=== PATIENT | male | born 1950 | race Caucasian/White ===

== ENCOUNTER 2016-04-15 10:33 | Inpatient (IN) | payer BC, MEDICARE, OTHER ==
[2016-04-15] MEDS ORDERED: HYDROcodone/APAP 7.5-325MG 1 EACH TAB PO STA (11:00)
--- NOTE | 2016-04-15 11:04 | ED ---
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 He did bump the right side of his head. No reported or known loss of consciousness. Mild headache. No nausea no vomiting no seizure activity. Patient also complains of pain to the right shoulder right clavicle region and right rib cage. No complaint of any neuro deficits - Related Data Home Medications Medication Instructions Recorded Confirmed Lisinopril 30 mg PO DAILY 04/15/16 04/15/16 Loratadine [Claritin] 10 mg PO DAILY 04/15/16 04/15/16 Allergies Allergy/AdvReac Type Severity Reaction Status Date / Time No Known Allergies Allergy Verified 04/15/16 11:13 Review of Systems ROS Statement: Those systems with pertinent positive or pertinent negative responses have been documented in the HPI. Review of systems, patient does complain of mild headache no visual acuity changes no TMJ jaw pain. Mild discomfort to the right side of his neck. Pain to the right shoulder right clavicle and right rib cage. No shortness of breath no palpitations. No abdominal pain. No hip knee or leg pain. Otherwise upper and lower extremities within normal limits except for right shoulder area. All systems reviewed. Past medical problems colon cancer 1997 and hypertension. 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 The patient's family history Brother had pancreatic cancer sister had vomiting rectal thousand disease. The patient denies any ALLERGIES he quit smoking in 1980. Drinks alcohol socially. ROS Other: All systems not noted in ROS Statement are negative. Past Medical History Past Medical History: Hypertension History of Any Multi-Drug Resistant Organisms: None Reported Past Surgical History: Appendectomy, Cholecystectomy Past Psychological History: No Psychological Hx Reported Smoking Status: Never smoker Past Alcohol Use History: Occasional Past Drug Use History: None Reported General Exam - General Exam Comments Initial Comments: General: The patient is awake and alert, complaining of pain to the right shoulder area right clavicular area. He did bump his head. No loss of consciousness. The patient's vital signs are temperature 98.0 pulse 68 respiratory rate 18 pulse ox 90% on room air blood pressure 141/71. Patient does have a history of hypertension his systolic is elevated 147. The patient is in pain. He'll be following up with his family physician and X1 to 2 weeks.. Eye: Pupils are equal, round and reactive to light, extra-ocular movements are intact ; there is normal conjunctiva bilaterally. No signs of icterus. Ears, nose, mouth and throat: There are moist mucous membranes and no oral lesions. Neck: The neck is supple, minimally tender without complaint of pain. No anterior cervical lymphadenopathy no palpable thyroid. Cardiovascular: There is a regular rate and rhythm. No murmur, rub or gallop is appreciated. Respiratory: Lungs are clear to auscultation, respirations are non-labored, breath sounds are equal. No wheezes, stridor, rales, or rhonchi. Gastrointestinal: Soft, non-distended, non-tender abdomen without masses or organomegaly noted. There is no rebound or guarding present. No CVA tenderness. Bowel sounds are unremarkable. Back: There is no tenderness to palpation in the midline. There is no obvious deformity. No rashes noted. Musculoskeletal: Complaining of pain to the right shoulder area obvious deformity to the right clavicle. Able to wiggle his fingers rotate at the elbow and wrist. Neurovascular status to hands intact. He also complains discomfort to the right rib cage. No pain with movement of the toes and ankles knees hips or back. Neurological: CN II-XII intact, There are no obvious motor or sensory deficits. Coordination appears grossly intact. Speech is normal. No focal or lateralizing findings well crown was examined within normal limits. Skin: Skin is warm and dry and no rashes or lesions are noted. Limitations: physical limitation Course Vital Signs 04/15/16 10:36 Temperature 98.0 F Pulse Rate 68 Respiratory 18 Rate Blood Pressure 147/71 O2 Sat by Pulse 98 Oximetry Medical Decision Making - Medical Decision Making X-rays were done including CAT scan of the brain and cervical spine. Radiologist reviewed all x-rays his report concerning the C-spine showed no acute fracture dislocation evident in the cervical spine. No acute intracranial hemorrhage, mass effect or midline shift seen. Appears to be a soft tissue edema along the lateral margin subcutaneous tissue of the right neck at the level of the thyroid gland. Correlate clinically for soft tissue hematoma. Large intrahemispheric fissure dural calcifications or calcified meningioma with no significant mass effect. As read by Dr. Griffin. Radiologist's review of x-ray shows a right clavicular fracture. As well as posterior lateral fractures to the right fourth fifth and sixth ribs. No evidence of pneumothorax. As read by Dr. Wiseman Patient still complains discomfort in the right clavicle and under the right arm pit area. No significant changes otherwise ,no shortness of breath. Minimal headache. Lungs clear to auscultation. Reexamination found normal neuro exam and no changes from first exam. Case discussed with trauma surgeon on-call Dr. Raymond. Patient be admitted to his service. He is requesting orthopedic consult for rib fractures also consult from pulmonary Dr. Riley . As well as anesthesia consult for pain management. Disposition Clinical Impression: Multiple fractures of ribs of right side, Right clavicle fracture Disposition: ADMITTED IP TO THIS HOSP Condition: Fair
--- NOTE | 2016-04-15 13:20 | XR ---
EXAMINATION TYPE: XR shoulder complete RT DATE OF EXAM: 04/15/2016 12:21 PM COMPARISON: NONE HISTORY: Pain TECHNIQUE: Shoulder examined in 3 FINDINGS: The humeral head articulates with the glenoid. The acromioclavicular junction has degenerative change. There is a fracture of the mid diaphyseal clavicle bayonet deformity IMPRESSION: 1. Mid diaphyseal clavicular fracture mildly comminuted with bayonet deformity. 2. Remainder of the right shoulder is normal
--- NOTE | 2016-04-15 13:24 | XR ---
EXAMINATION TYPE: XR ribs RT w pa chest xray DATE OF EXAM: 04/15/2016 12:20 PM COMPARISON: Right shoulder same date HISTORY: Fall, pain TECHNIQUE: 2 views right RIBS FINDINGS: There is a comminuted fracture of the mid diaphyseal right clavicle further discussed in th e right shoulder x-ray. Pain and deformity is present depression of the distal fracture fragment in r elation to the proximal fracture fragment. Multiple right-sided rib fractures are present including posterior lateral right rib 4, 5, and 6. Rig ht rib 5 fracture may have some overlap and displacement of the fracture fragments. Additional fractu res are not identified. No pneumothorax is evident. IMPRESSION: 1. Posterior lateral right rib fractures of the fourth fifth and sixth ribs. 2. No pneumothorax.
--- NOTE | 2016-04-15 13:42 | CT ---
EXAMINATION TYPE: CT brain dylan flynn con DATE OF EXAM: 04/15/2016 1:23 PM COMPARISON: NONE HISTORY: Fall, Hit right side of head CT DLP: 1567.90 mGycm Automated exposure control for dose reduction was used. TECHNIQUE: CT scan of the head and cervical spine are performed without contrast. FINDINGS: There is no acute intracranial hemorrhage, mass effect, or midline shift identified. The ventricles and sulci are within normal limits in size. Extensive changes of chronic sinusitis noted. Calcified mass along the anterior hemispheric fissure paramedian to the left likely related to calcif ied meningioma measuring 2.1 cm. Additional calcified lesion measuring 1.2 cm also suspicious for eit her dural large calcification or calcified meningioma. There is [id number] degenerative change and periventricular low attenuation compatible with remote microvascular ischemia. Cervical spine is visualized in its entirety from C1 through upper thoracic levels and demonstrates s atisfactory alignment without evidence of acute fracture or dislocation. Prevertebral soft tissue ap pears within normal limits. The C1-C2 articulation is unremarkable. Severe degenerative disc disease C5-C6 and C6-C7 posterior spondylosis, facet arthropathy and uncover tebral joint hypertrophy. Severe left-sided foraminal encroachment C5-C6 and moderate bilateral ling inal encroachment C6-C7. Marked facet arthropathy at C2-3 and C3-4 particularly on the left with uncovertebral joint hypertrop hy result in foraminal encroachment. Assessment for disc herniation limited by noncontrast technique and artifact. Left thyroid gland calcification noted. There appears to be soft tissue edema along the lateral mar gin subcutaneous tissues of the right neck at the level of the thyroid gland. Correlate clinically Fo r soft tissue hematoma. IMPRESSION: 1. There is no acute fracture or dislocation evident in the cervical spine. 2. No acute intracranial hemorrhage, mass effect, or midline shift is seen. 3. appears to be soft tissue edema along the lateral margin subcutaneous tissues of the right neck a t the level of the thyroid gland. Correlate clinically For soft tissue hematoma. 4. Large interhemispheric fissure dural calcifications or calcified meningioma with no significant ma ss effect.
[2016-04-15] MEDS ORDERED: ONDANSETRON 4 MG/2 ML VIAL IVP PRN (14:32)
[2016-04-15] MEDS ORDERED: NALOXONE 0.4 MG/ML 1 ML VIAL IV PRN (14:32)
[2016-04-15] MEDS: SODIUM CHLORIDE 0.9% 1,000 ML IV SCH (14:41)
[2016-04-15] MEDS: HYDROmorphone 1 MG/ML 1 ML SYRINGE IV PRN ×4 (14:42→22:43)
[2016-04-15 15:06] LABS: Basophils % (A) 0 %; CH 32.4; CHCM 33.8; Eosinophils % (A) 0 %; HCT 45.2 % (39.0-53.0); HDW 2.39; HGB 15.1 gm/dL (13.0-17.5); Luc # (Auto) 0.09; Luc % (Auto) 1; Lymphocytes # (A) 0.7 k/uL (1.0-4.8); Lymphocytes % (A) 5 %; MCH 32.3 pg (25.0-35.0); MCHC 33.5 g/dL (31.0-37.0); MCV 96.3 fL (80.0-100.0); Mean Platelet Volume 7.2; Monocytes # (A) 0.5 k/uL (0-1.0); Monocytes % (A) 4 %; Neutrophils # (A) 12.1 k/uL (1.3-7.7); Neutrophils % (A) 90 %; RBC 4.69 m/uL (4.30-5.90); WBC 13.4 k/uL (3.8-10.6); WBC (Perox) 13.15
[2016-04-15 15:13] LABS: ALT 36 U/L (21-72); AST 27 U/L (17-59); Alkaline Phosphatase 70 U/L (38-126); Anion Gap 12 mmol/L; Blood Urea Nitrogen 17 mg/dL (9-20); Calcium 9.2 mg/dL (8.4-10.2); Carbon Dioxide 26 mmol/L (22-30); Chloride 102 mmol/L (98-107); Glucose 106 mg/dL (74-99); Non-African American GFR(MDRD) >60 (>60 ml/min/1.73 sqM); Potassium 4.4 mmol/L (3.5-5.1); Sodium 140 mmol/L (137-145); Total Bilirubin 0.8 mg/dL (0.2-1.3); Total Protein 7.4 g/dL (6.3-8.2)
[2016-04-15 15:50] VITALS: BMI 27.8
--- NOTE | 2016-04-15 17:40 | P.CNPUL ---
History of Present Illness Consult date: 04/15/16 Requesting physician: Elder Raymond Reason for consult: abnormal CXR/CT, other (Right clavicle and multiple right- sided rib fractures) Chief complaint: Pain/trauma secondary to fall History of present illness: This is a very pleasant 65-year-old gentleman follows with Dr. Martell as his primary care physician. He has a history of hypertension, colon cancer with resection, osteoarthritis and occasional ALLERGIES. He is a lifelong nonsmoker. He is a quite an active man and exercises on the elliptical each morning. 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 He presented here for pain secondary to the trauma. A CT can of the head and neck revealed no acute fracture or dislocation of the cervical spine. There is no acute intracranial hemorrhage mass effect or midline shift. There was some soft tissue edema along the lateral margin subcutaneous tissues of the right neck at the level of the thyroid gland. There is a large inter-hemispheric fissure dural calcification or calcified meningioma with no significant mass effect. Chest x- ray and rib x-rays revealed posterior lateral rib fractures to the fourth fifth and sixth ribs. No evidence of a pneumothorax. Right shoulder x-ray revealed the mid diaphyseal clavicular fracture mildly comminuted with bayonet deformity. He is seen today in consultation. He is awake and alert in no acute distress. He does have significant clavicular and right sided chest wall pain. He is in no acute pulmonary distress. He is maintaining good O2 saturations in the mid 90s on room air. Pain is fairly well controlled. He denies any shortness of breath, cough or congestion. No hemoptysis. He is remained hemodynamically stable. No fever chills or night sweats. Review of Systems 14 point review of system was conducted. All negative other than as mentioned in HPI. Past Medical History Past Medical History: Cancer, Hearing Disorder / Deafness, Hypertension, Osteoarthritis (OA) Additional Past Medical History / Comment(s): colon ca 1998 removed, allergies History of Any Multi-Drug Resistant Organisms: None Reported Past Surgical History: Appendectomy Additional Past Surgical History / Comment(s): colon removed secondary to ca, only has semicolon Past Anesthesia/Blood Transfusion Reactions: No Reported Reaction Past Psychological History: No Psychological Hx Reported Smoking Status: Never smoker Past Alcohol Use History: Occasional Past Drug Use History: None Reported Medications and Allergies Home Medications Medication Instructions Recorded Confirmed Type Lisinopril 30 mg PO DAILY 04/15/16 04/15/16 History Loratadine [Claritin] 10 mg PO DAILY 04/15/16 04/15/16 History Allergies Allergy/AdvReac Type Severity Reaction Status Date / Time No Known Allergies Allergy Verified 04/15/16 11:13 Physical Exam Vitals: Vital Signs Temp Pulse Pulse Resp BP BP Pulse Ox 04/15/16 15:40 98.4 F 79 16 148/83 97 04/15/16 15:15 97.9 F 82 168/81 95 Intake and Output 04/15/16 04/15/16 04/15/16 06:59 14:59 22:59 Other: Weight 90.718 kg Patient Weight 04/16/16 06:59 Weight 90.718 kg GENERAL EXAM: Alert, fairly comfortable in no apparent distress. HEAD: Normocephalic. EYES: Normal reaction of pupils, equal size. NOSE: Clear with pink turbinates. THROAT: No erythema or exudates. NECK: No masses, no JVD. CHEST: There is ecchymosis over the right clavicle with some swelling LUNGS: Equal air entry with no crackles, wheeze, rhonchi or dullness. CVS: S1 and S2 normal with no audible murmurs, regular rhythm. ABDOMEN: No hepatosplenomegaly, normal bowel sounds, no guarding or rigidity. SPINE: No scoliosis or deformity SKIN: No rashes CENTRAL NERVOUS SYSTEM: No focal deficits, tone is normal in all 4 extremities. Extremities: There is no significant peripheral edema. No clubbing, no cyanosis. Peripheral pulses are intact. Results - Laboratory Findings CBC and BMP: 04/15/16 14:48 04/15/16 14:48 Abnormal lab findings: Abnormal Labs 04/15/16 04/15/16 14:48 14:48 WBC 13.4 H Neutrophils # 12.1 H Lymphocytes # 0.7 L Glucose 106 H - Diagnostic Findings Chest x-ray: image reviewed Assessment and Plan Plan: Impression: #1 Trauma including right clavicular fracture and multiple right-sided rib fractures secondary to slip and fall well out shoveling. #2 Right mid diaphyseal clavicular fracture mildly comminuted with bayonet deformity secondary to fall. #3 Posterior lateral right rib fractures of the fourth fifth and sixth ribs. No evidence of pneumothorax. #4 Hypertension. #5 History of colon cancer status post hemicolectomy. #6 Osteoarthritis. Plan: The patient was seen and evaluated by Dr. Pedroza. His chest x-ray was reviewed. There is no clear evidence of pneumothorax at this point. We'll provide adequate pain medication. He'll be given an incentive spirometer and is encouraged regarding the importance of cough and deep breathing exercises. We will increase his activity as tolerated. We'll utilize bronchodilators as needed. We'll repeat his chest x-ray in the a.m. We'll continue to follow make further recommendations based on his clinical status.
[2016-04-15] MEDS ORDERED: ALBUTEROL NEB (CONC) 2.5 MG/0.5 ML INHALATION PRN (17:41)
[2016-04-16] MEDS: HYDROmorphone 1 MG/ML 1 ML SYRINGE IV PRN ×8 (02:00→22:39)
[2016-04-16] MEDS: SODIUM CHLORIDE 0.9% 1,000 ML IV SCH (02:02)
--- NOTE | 2016-04-16 08:15 | P.CNOR ---
History of Present Illness - HPI Consult date: 04/16/16 Consult reason: fracture (Right clavicle fracture) History of present illness: This is a pleasant 65-year-old gentleman who was out shoveling sidewalk when he sustained a fall onto the right side. He sustained a clavicle fracture and rib fractures subsequently we are consulted. The patient was seen and evaluated at bedside this morning with Dr. Juan Francisco Steele. He complains of pain at the right shoulder over his clavicle. He also complains of right chest pain secondary to his rib fractures. This morning his pain is better controlled. He denies shortness of breath or cough. No fevers, chills, nausea, vomiting. Review of Systems See HPI Past Medical History Past Medical History: Cancer, Hearing Disorder / Deafness, Hypertension, Osteoarthritis (OA) Additional Past Medical History / Comment(s): colon ca 1998 removed, allergies History of Any Multi-Drug Resistant Organisms: None Reported Past Surgical History: Appendectomy Additional Past Surgical History / Comment(s): colon removed secondary to ca, only has semicolon Past Anesthesia/Blood Transfusion Reactions: No Reported Reaction Past Psychological History: No Psychological Hx Reported Smoking Status: Never smoker Past Alcohol Use History: Occasional Past Drug Use History: None Reported Medications and Allergies Home Medications Medication Instructions Recorded Confirmed Type Lisinopril 30 mg PO DAILY 04/15/16 04/15/16 History Loratadine [Claritin] 10 mg PO DAILY 04/15/16 04/15/16 History Allergies Allergy/AdvReac Type Severity Reaction Status Date / Time No Known Allergies Allergy Verified 04/15/16 11:13 Physical Examination The patient does not appear in acute distress. He is alert and orientated 3. Head normocephalic atraumatic. Neck is supple. In is intact over the right clavicle and shoulder. There is swelling and ecchymosis present. There is tenderness palpation over the fracture site. Range of motion of the shoulders untested secondary to his injury. He has good motion at the elbow wrist and fingers without difficulty or pain. Sensation circulatory status is intact. Secondary exam is performed as well. Patient denies any hip irritability with internal/external rotation. He denies any other areas of pain of his long bones and joints today. Patient has sustained dorsiflexion, plantar flexion extensor hallux longus of his lower extremities. Results X-rays of the patient's right ribs show posterior lateral right rib fractures the fourth fifth and sixth ribs. No pneumothorax. X-rays of the right shoulder show fracture of the mid-diaphyseal clavicle with pain and deformity. No additional fractures or dislocation are noted - Labs Labs: Abnormal Lab Results - Last 24 Hours (Table) 04/15/16 04/15/16 Range/Units 14:48 14:48 WBC 13.4 H (3.8-10.6) k/uL Neutrophils # 12.1 H (1.3-7.7) k/uL Lymphocytes # 0.7 L (1.0-4.8) k/uL Glucose 106 H (74-99) mg/dL H & H 04/15/16 Range/Units 14:48 Hgb 15.1 (13.0-17.5) gm/dL Hct 45.2 (39.0-53.0) % Result Diagrams: 04/15/16 14:48 04/15/16 14:48 Assessment and Plan (1) Multiple fractures of ribs of right side Status: Acute (2) Right clavicle fracture Status: Acute Plan: Patient was seen and evaluated at bedside with Dr. Juan Francisco Steele. The clinical and x-ray findings were discussed. The natural history of this type of injury was discussed as well. Treatment options were discussed including nonoperative versus operative treatment. Nonoperative treatment is recommended at this time. Closed treatment in a sling for immobilization is anticipated for 3-4 weeks. The patient currently has a sling in place. Regards to his rib fractures recommend incentive spirometer. The patient is orthopedically stable for discharge. He may follow-up with Dr. Steele in 10-14 days. Patient agrees with the plan of care and I'll discuss questions are answered to best my ability today.
[2016-04-16] MEDS: LISINOPRIL 10 MG TAB PO SCH (08:41)
[2016-04-16] MEDS: LORATADINE 10 MG TAB PO SCH (08:41)
--- NOTE | 2016-04-16 15:01 | P.GSHP ---
History of Present Illness H&P Date: 04/16/16 Chief Complaint: Right-sided chest and shoulder pain This is a 65-year-old male who fell while shoveling snow. The patient was worked up emergency room found have evidence of a right clavicle fracture as well as right fourth, fifth and sixth rib fractures. Past Medical History Past Medical History: Cancer, Hearing Disorder / Deafness, Hypertension, Osteoarthritis (OA) Additional Past Medical History / Comment(s): colon ca 1998 removed, allergies History of Any Multi-Drug Resistant Organisms: None Reported Past Surgical History: Appendectomy Additional Past Surgical History / Comment(s): colon removed secondary to ca, only has semicolon Past Anesthesia/Blood Transfusion Reactions: No Reported Reaction Past Psychological History: No Psychological Hx Reported Smoking Status: Never smoker Past Alcohol Use History: Occasional Past Drug Use History: None Reported Medications and Allergies Home Medications Medication Instructions Recorded Confirmed Type Lisinopril 30 mg PO DAILY 04/15/16 04/15/16 History Loratadine [Claritin] 10 mg PO DAILY 04/15/16 04/15/16 History Allergies Allergy/AdvReac Type Severity Reaction Status Date / Time No Known Allergies Allergy Verified 04/15/16 11:13 Surgical - Exam Vital Signs Temp Pulse Resp BP Pulse Ox 98.0 F 68 18 147/71 98 04/15/16 10:36 04/15/16 10:36 04/15/16 10:36 04/15/16 10:36 04/15/16 10:36 - General well developed, no distress - Eyes PERRL - ENT normal pinna - Neck no masses - Respiratory Pain right chest wall with deep inspiration normal expansion - Cardiovascular Rhythm: regular - Abdomen Abdomen: soft, non tender - Musculoskeletal Right shoulder pain with obvious ecchymosis near clavicle Results - Labs 04/15/16 14:48 04/15/16 14:48 Abnormal Lab Results - Last 24 Hours (Table) 04/15/16 04/15/16 Range/Units 14:48 14:48 WBC 13.4 H (3.8-10.6) k/uL Neutrophils # 12.1 H (1.3-7.7) k/uL Lymphocytes # 0.7 L (1.0-4.8) k/uL Glucose 106 H (74-99) mg/dL Diabetes panel 04/15/16 Range/Units 14:48 Sodium 140 (137-145) mmol/L Potassium 4.4 (3.5-5.1) mmol/L Chloride 102 (98-107) mmol/L Carbon Dioxide 26 (22-30) mmol/L BUN 17 (9-20) mg/dL Creatinine 0.80 (0.66-1.25) mg/dL Glucose 106 H (74-99) mg/dL Calcium 9.2 (8.4-10.2) mg/dL AST 27 (17-59) U/L ALT 36 (21-72) U/L Alkaline Phosphatase 70 (38-126) U/L Total Protein 7.4 (6.3-8.2) g/dL Albumin 4.3 (3.5-5.0) g/dL Calcium panel 04/15/16 Range/Units 14:48 Calcium 9.2 (8.4-10.2) mg/dL Albumin 4.3 (3.5-5.0) g/dL Pituitary panel 04/15/16 Range/Units 14:48 Sodium 140 (137-145) mmol/L Potassium 4.4 (3.5-5.1) mmol/L Chloride 102 (98-107) mmol/L Carbon Dioxide 26 (22-30) mmol/L BUN 17 (9-20) mg/dL Creatinine 0.80 (0.66-1.25) mg/dL Glucose 106 H (74-99) mg/dL Calcium 9.2 (8.4-10.2) mg/dL Adrenal panel 04/15/16 Range/Units 14:48 Sodium 140 (137-145) mmol/L Potassium 4.4 (3.5-5.1) mmol/L Chloride 102 (98-107) mmol/L Carbon Dioxide 26 (22-30) mmol/L BUN 17 (9-20) mg/dL Creatinine 0.80 (0.66-1.25) mg/dL Glucose 106 H (74-99) mg/dL Calcium 9.2 (8.4-10.2) mg/dL Total Bilirubin 0.8 (0.2-1.3) mg/dL AST 27 (17-59) U/L ALT 36 (21-72) U/L Alkaline Phosphatase 70 (38-126) U/L Total Protein 7.4 (6.3-8.2) g/dL Albumin 4.3 (3.5-5.0) g/dL Assessment and Plan Plan: Right clavicle fracture Right fourth fifth and sixth rib fracture Patient will be admitted he'll undergo restaging evaluation. And repeat chest x -ray in a.m. Patient was seen 30 this a.m.
[2016-04-16] MEDS: HYDROcodone/APAP 7.5-325MG 1 EACH TAB PO PRN ×2 (17:17→22:38)
--- NOTE | 2016-04-16 17:30 | P.PN ---
Subjective This is a very pleasant 65-year-old gentleman follows with Dr. Martell as his primary care physician. He has a history of hypertension, colon cancer with resection, osteoarthritis and occasional ALLERGIES. He is a lifelong nonsmoker. He is a quite an active man and exercises on the elliptical each morning. 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 He presented here for pain secondary to the trauma. A CT can of the head and neck revealed no acute fracture or dislocation of the cervical spine. There is no acute intracranial hemorrhage mass effect or midline shift. There was some soft tissue edema along the lateral margin subcutaneous tissues of the right neck at the level of the thyroid gland. There is a large inter-hemispheric fissure dural calcification or calcified meningioma with no significant mass effect. Chest x- ray and rib x-rays revealed posterior lateral rib fractures to the fourth fifth and sixth ribs. No evidence of a pneumothorax. Right shoulder x-ray revealed the mid diaphyseal clavicular fracture mildly comminuted with bayonet deformity. He is seen today in consultation. He is awake and alert in no acute distress. He does have significant clavicular and right sided chest wall pain. He is in no acute pulmonary distress. He is maintaining good O2 saturations in the mid 90s on room air. Pain is fairly well controlled. He denies any shortness of breath, cough or congestion. No hemoptysis. He is remained hemodynamically stable. No fever chills or night sweats. On 04/16/2016 the patient is being seen in follow-up in the patient is doing well. No specific complaints. His pain is under good control. His underlying control milligram every 4-6 hours on a when necessary basis. As mentioned earlier, the patient has a fractured clavicle and the patient has 3 rib fractures involving the sixth, fourth and fifth rib on the right side. No evidence of any pneumothorax. No this any pleural effusions. No other new complaints otherwise for now. The patient is using incentive spirometer. The patient is ambulating. Objective - Vital Signs Vital signs: Vital Signs Temp 98 F 04/16/16 15:00 Pulse 82 04/16/16 15:00 Resp 16 04/16/16 15:00 BP 135/77 04/16/16 15:00 Pulse Ox 93 L 04/16/16 15:00 Intake & Output 04/15/16 04/16/16 04/16/16 18:59 06:59 18:59 Intake Total 240 480 Balance 240 480 Weight 90.718 kg Intake: Intake, IV Titration 480 Amount Sodium Chloride 0.9% 1, 480 000 ml @ 60 mls/hr IV . [id number] [facility] Rx#:[id number] Oral 240 - Exam Head exam was generally normal. There was no scleral icterus or corneal arcus. Mucous membranes were moist.Neck was supple and without jugular venous distension, thyromegaly, or carotid bruits. Carotids were easily palpable bilaterally. There was no adenopathy. Lung sounds are diminished and this is essentially due to poor respiratory efforts as the patient is breathing is limited because of skeletal pain.Cardiac exam revealed the PMI to be normally situated and sized. The rhythm was regular and no extrasystoles were noted during several minutes of auscultation. The first and second heart sounds were normal and physiologic splitting of the second heart sound was noted. There were no murmurs, rubs, clicks, or gallops.Abdominal exam revealed normal bowel sounds. The abdomen was soft, non-tender, and without masses, organomegaly, or appreciable enlargement of the abdominal aorta.Examination of the extremities revealed easily palpable radial, femoral and pedal pulses. There was no cyanosis , clubbing or edema. - Labs CBC & Chem 7: 04/15/16 14:48 04/15/16 14:48 Assessment and Plan Plan: Impression: #1 Trauma including right clavicular fracture and multiple right-sided rib fractures secondary to slip and fall well out shoveling. #2 Right mid diaphyseal clavicular fracture mildly comminuted with bayonet deformity secondary to fall. #3 Posterior lateral right rib fractures of the fourth fifth and sixth ribs. No evidence of pneumothorax. #4 Hypertension. #5 History of colon cancer status post hemicolectomy. #6 Osteoarthritis. Plan Condition is stable. Pain is under better control. We'll stop the IV Dilaudid and switch this patient oral [place]. Continue using incentive spirometer. Obtain one final chest x-ray tomorrow. We'll likely discharge in the morning if his condition remains stable.
--- NOTE | 2016-04-16 18:44 | XR ---
EXAMINATION TYPE: XR chest 2V DATE OF EXAM: 04/16/2016 6:39 PM COMPARISON: 04/15/2016 HISTORY: Rib pain TECHNIQUE: Frontal and lateral views of the chest are obtained. FINDINGS: There is no heart failure. There is linear density in the left lower lobe consistent with atelectasis. There are no hilar masses. Thoracic aorta is atheromatous. There is no pleural effusion or pneumothorax. There are fractures of the posterior right upper fifth and sixth ribs. IMPRESSION: Right upper rib fractures without significant change in position compared to last exam. There is new and increasing atelectasis in the left lower lobe compared to last exam.
--- NOTE | 2016-04-16 19:37 | P.CONS ---
History of Present Illness - Reason for Consult Consult date: 04/16/16 Medical management. Requesting physician: Elder Raymond - Chief Complaint Right clavicular fracture/posterior fourth, fifth, sixth rib fractures - History of Present Illness This is a 65-year-old male one of Dr. Martell with a previous medical history significant for hypertension and hypertensive cardio vascular disease with left ventricular hypertrophy, Boo arthritis, history of colon cancer that was diagnosed back in 1997 post hemicolectomy, history of ALLERGIC rhinitis , hearing disorder, patient is quite active and run at least 9 miles a daily basis on his elliptical machine at home, he was working outside yesterday morning shoveling snow and suddenly he slipped on ice and he landed on his back first hit his head that he hit his right shoulder and back patient developed to have a significant pain in the right side of his chest as well as right shoulder he was brought into the emergency department at [facility] when he had numerous x-rays and his computed tomography scan of the brain did show some calcified meningiomas without any mass effect, and no intracranial bleed, his cervical spine did not show any evidence of acute fracture, he was found to have a posterior right fourth, fifth, sixth rib fractures, as well as mildly comminuted fracture of the right clavicle, he was admitted under trauma surgery and we were asked to see the patient from medicine for medical management today. Patient is sitting up in bed in no apparent distress he denies any chest pain at this time except for the side of the rib fracture he denies any shortness breath, he has no pleurisy, he is coughing a bit, no hemoptysis, he denies any bowel pain, nausea, vomiting, he has no headache, he does Have some arthritis in both feet. Review of Systems Constitutional: Denies anorexia, Denies chronic headaches, Denies lethargy, Denies malaise, Denies weakness, Denies weight gain, Denies weight loss Eyes: denies blurred vision, denies bulging eye, denies decreased vision Ears: bilateral: decreased hearing Ears, nose, mouth and throat: Denies dysphagia, Denies epistaxis, Denies neck lump, Denies sore throat, Denies vertigo Cardiovascular: Reports chest pain, Denies dyspnea on exertion, Denies edema, Denies high blood pressure, Denies paroxysmal nocturnal dyspnea, Denies phlebitis, Denies rapid heart beat, Denies shortness of breath, Denies syncope Respiratory: Denies congestion, Denies cough, Denies cough with sputum, Denies home oxygen, Denies sleep apnea, Denies snoring, Denies wheezing Gastrointestinal: Denies abdominal pain, Denies bloating, Denies BRBPR, Denies change in bowel habits, Denies heartburn, Denies hematemesis, Denies hematochezia, Denies melena, Denies nausea, Denies vomiting Genitourinary: Denies dysuria, Denies nocturia, Denies polyuria Musculoskeletal: Reports limitation of motion Musculoskeletal: right: shoulder pain, shoulder stiffness, shoulder swelling, bilateral: foot pain, absent: ankle pain, ankle stiffness, ankle swelling, as per HPI, elbow pain, elbow stiffness, elbow swelling, foot stiffness, foot swelling, hand pain, hand stiffness, hand swelling, hip pain, hip stiffness, hip swelling, knee pain, knee stiffness, knee swelling, wrist pain, wrist stiffness, wrist swelling Integumentary: Denies pruritus, Denies rash Neurological: Denies numbness, Denies weakness Psychiatric: Denies anxiety, Denies depression Endocrine: Denies fatigue, Denies weight change Past Medical History Past Medical History: Cancer, Hearing Disorder / Deafness, Hypertension, Osteoarthritis (OA) Additional Past Medical History / Comment(s): colon ca 1998 removed, allergies History of Any Multi-Drug Resistant Organisms: None Reported Past Surgical History: Appendectomy Additional Past Surgical History / Comment(s): colon removed secondary to ca, only has semicolon, right cataract surgery, Past Anesthesia/Blood Transfusion Reactions: No Reported Reaction Past Psychological History: No Psychological Hx Reported Smoking Status: Former smoker (Patient used to smoke half to a pack a day on and off.) Past Alcohol Use History: Occasional Past Drug Use History: None Reported - Past Family History Mother Family Medical History: Cancer (Mother at age of 90 from breast cancer, congestive heart failure, and renal cancer.) Father Family Medical History: CVA/TIA (Father at age of 81 from stroke.) Brother(s) Family Medical History: Cancer (Patient had 4 brothers 3 are alive and okay and one from pancreatic cancer per) Sister(s) Family Medical History: No Reported History (Patient had 2 sisters one is alive and okay the other one from neurofibroma and she ended up with MRSA through a pressure ulcer.) Son(s) Family Medical History: No Reported History (Patient has one son no major medical problems for) Medications and Allergies Home Medications Medication Instructions Recorded Confirmed Type Lisinopril 30 mg PO DAILY 04/15/16 04/15/16 History Loratadine [Claritin] 10 mg PO DAILY 04/15/16 04/15/16 History Allergies Allergy/AdvReac Type Severity Reaction Status Date / Time No Known Allergies Allergy Verified 04/15/16 11:13 Physical Exam Vitals: Vital Signs Temp Pulse Resp BP Pulse Ox 04/16/16 15:00 98 F 82 16 135/77 93 L 04/16/16 07:00 98.8 F 77 16 138/71 93 L 04/16/16 02:00 97.9 F 72 20 126/69 94 L 04/15/16 22:12 97.8 F 88 16 138/77 04/15/16 19:55 97.3 F L 81 18 138/73 92 L Intake and Output 04/16/16 04/16/16 04/16/16 06:59 14:59 22:59 Intake Total 480 720 Balance 480 720 Intake: IV 480 Sodium Chloride 0.9% 1, 480 000 ml @ 60 mls/hr IV . [id number] [facility] Rx#:[id number] Intake, IV Titration 480 Amount Sodium Chloride 0.9% 1, 480 000 ml @ 60 mls/hr IV . [id number] [facility] Rx#:[id number] Oral 240 - Constitutional General appearance: average body habitus, mild distress - EENT Eyes: disc margins sharp, PERRLA, no ptosis, no scleral icterus, normal appearance ENT: hard of hearing, normal oropharynx, no thrush Ears: bilateral: normal - Neck Neck: no lymphadenopathy, no normal ROM, no rigidity, no stridor, no thyromegaly Carotids: bilateral: upstroke normal Thyroid: bilateral: normal size - Respiratory Respiratory: bilateral: diminished, negative: dullness, rales, rhonchi, wheezing , prolonged expiration, prolonged inspiration - Cardiovascular Rhythm: regular Heart sounds: normal: S1, S2 Abnormal Heart Sounds: no systolic murmur, no diastolic murmur, no rub, no S3 Gallop, no S4 Gallop, no click - Gastrointestinal General gastrointestinal: normal bowel sounds, soft, no splenomegaly, no tenderness, no umbilical hernia, no ventral hernia - Integumentary Integumentary: normal, normal turgor - Neurologic Neurologic: CNII-XII intact - Musculoskeletal Musculoskeletal: strength equal bilaterally - Psychiatric Psychiatric: A&O x's 3, appropriate affect, intact judgment & insight Results CBC & Chem 7: 04/15/16 14:48 04/15/16 14:48 Assessment and Plan Plan: Assessment and plan: 1. Status post a fall with multiple rib fractures and clavicular fracture. Continue incentive spirometer to reduce the incidence of atelectasis and hospital-acquired pneumonia, continue nebulized treatment, continue oxygen support as needed. Continue current pain management as well. 2. Hypertension and hypertensive cardiovascular disease. Continue lisinopril 30 mg orally once every day. 3. ALLERGIC rhinitis. Continue Claritin 10 mg orally once every day. 4. Osteoarthritis. Continue patient on current pain management. 5. DVT prophylaxis. Early ambulation. 6. GI prophylaxis. Continue current PPI. 7. Thank you Dr. Raymond for allowing me to participate in the care of your patient we will follow the patient along with you.
[2016-04-17] MEDS: HYDROmorphone 1 MG/ML 1 ML SYRINGE IV PRN (03:27)
[2016-04-17] MEDS: SODIUM CHLORIDE 0.9% 1,000 ML IV SCH (03:28)
[2016-04-17] MEDS: HYDROcodone/APAP 7.5-325MG 1 EACH TAB PO PRN ×3 (05:45→14:05)
[2016-04-17 08:16] VITALS: BP 142/79; PULSE 78; RESP 17; TEMP 98
--- NOTE | 2016-04-17 08:17 | P.PN ---
Subjective Principal diagnosis: Right clavicle and rib fractures This is a 65-year-old male who we're following regarding his right clavicle and rib fractures. He is doing well from an orthopedic standpoint. He has no new complaints or concerns today. Objective - Vital Signs Vital signs: Vital Signs Temp 98.0 F 04/17/16 04:53 Pulse 92 04/17/16 04:53 Resp 16 04/17/16 04:53 BP 132/82 04/17/16 04:53 Pulse Ox 92 L 04/17/16 04:53 Intake & Output 04/16/16 04/17/16 04/17/16 18:59 06:59 18:59 Intake Total 720 720 Balance 720 720 Weight 90.718 kg Intake: IV 480 720 Sodium Chloride 0.9% 1, 480 720 000 ml @ 60 mls/hr IV . [id number] [facility] Rx#:[id number] Oral 240 - Exam Is a pleasant 65-year-old male in no acute distress. He is alert and oriented 3. Exam of the right upper extremity reveals that there is no obvious deformity. There is pain with palpation about the right clavicle. The sling is in place. He has full wrist and finger motion without difficulty or pain. Neurovascular status to the upper extremities intact. - Labs CBC & Chem 7: 04/15/16 14:48 04/15/16 14:48 Assessment and Plan (1) Multiple fractures of ribs of right side Status: Acute (2) Right clavicle fracture Status: Acute Plan: The clinical findings are discussed the patient. He may be discharged from an orthopedic standpoint. He is follow-up in 10 days for reevaluation and x-ray.
[2016-04-17] MEDS: LORATADINE 10 MG TAB PO SCH (09:16)
[2016-04-17] MEDS: LISINOPRIL 10 MG TAB PO SCH (09:16)
--- NOTE | 2016-04-17 12:52 | P.DS ---
Providers Date of admission: 04/15/16 14:45 Expected date of discharge: 04/17/16 Attending physician: Elder Raymond Consults: 04/16/16 15:01 Consult Physician Routine Consulting Provider: Mynor Martell Consult Reason/Comments: Medical management Do you want consulting provider notified?: Yes Primary care physician: Mynor Martell [facility] Course: This is a 65-year-old male who fell while shoveling snow on his driveway. Patient sustained a right clavicle fracture as well as right rib fractures. Patient was seen there were thick surgery. Please hospital chart for details. Patient Condition at Discharge: Fair Plan - Discharge Summary New Discharge Prescriptions: Hydrocodone/Acetaminophen [[place] 5-325] 1 - 2 each PO Q6HR PRN #90 tab PRN Reason: Pain Sennosides-Docusate Sodium [Senokot-S] 2 tab PO DAILY #60 tablet Discharge Medication List Lisinopril 30 mg PO DAILY 04/15/16 [History] Loratadine [Claritin] 10 mg PO DAILY 04/15/16 [History] Hydrocodone/Acetaminophen [[place] 5-325] 1 - 2 each PO Q6HR PRN #90 tab 04/16/16 [Rx] Sennosides-Docusate Sodium [Senokot-S] 2 tab PO DAILY #60 tablet 04/16/16 [Rx] Follow up Appointment(s)/Referral(s): Mynor Martell MD [Primary Care Provider] - 1-2 days Juan Francisco Steele DO [Doctor of Osteopathic Medicine] - 10 Days Activity/Diet/Wound Care/Special Instructions: Maintain sling to right upper extremity. May come out to perform elbow and wrist motion to prevent stiffness Incentive spirometer as instructed [facility] with questions or concerns [phone]
--- NOTE | 2016-04-17 14:17 | P.PN ---
Subjective This is a very pleasant 65-year-old gentleman follows with Dr. Martell as his primary care physician. He has a history of hypertension, colon cancer with resection, osteoarthritis and occasional ALLERGIES. He is a lifelong nonsmoker. He is a quite an active man and exercises on the elliptical each morning. 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 He presented here for pain secondary to the trauma. A CT can of the head and neck revealed no acute fracture or dislocation of the cervical spine. There is no acute intracranial hemorrhage mass effect or midline shift. There was some soft tissue edema along the lateral margin subcutaneous tissues of the right neck at the level of the thyroid gland. There is a large inter-hemispheric fissure dural calcification or calcified meningioma with no significant mass effect. Chest x- ray and rib x-rays revealed posterior lateral rib fractures to the fourth fifth and sixth ribs. No evidence of a pneumothorax. Right shoulder x-ray revealed the mid diaphyseal clavicular fracture mildly comminuted with bayonet deformity. He is seen today in consultation. He is awake and alert in no acute distress. He does have significant clavicular and right sided chest wall pain. He is in no acute pulmonary distress. He is maintaining good O2 saturations in the mid 90s on room air. Pain is fairly well controlled. He denies any shortness of breath, cough or congestion. No hemoptysis. He is remained hemodynamically stable. No fever chills or night sweats. Ratna again today in follow-up. He is awake and alert in no acute distress. His right sling remains in place. There is continued ecchymosis over the right fractured clavicle. He denies any worsening shortness of breath. His chest x- ray does reveal evidence of fractures of the right fourth fifth and sixth rib along with some left lower lobe atelectasis. He is again encouraged regarding the increased use of the incentive spirometer and cough and breathing exercises. Objective - Vital Signs Vital signs: Vital Signs Temp 98 F 04/17/16 07:00 Pulse 78 04/17/16 08:00 Resp 17 04/17/16 08:00 BP 142/79 04/17/16 07:00 Pulse Ox 97 04/17/16 07:00 Intake & Output 04/16/16 04/17/16 04/17/16 18:59 06:59 18:59 Intake Total 720 720 420 Balance 720 720 420 Weight 90.718 kg 90.718 kg Intake: IV 480 720 420 Sodium Chloride 0.9% 1, 480 720 420 000 ml @ 60 mls/hr IV . [id number] [facility] Rx#:[id number] Oral 240 - Exam GENERAL EXAM: Alert, active, comfortable in no apparent distress. HEAD: Normocephalic. EYES: Normal reaction of pupils, equal size. NOSE: Clear with pink turbinates. THROAT: No erythema or exudates. NECK: No masses, no JVD. CHEST: No chest wall deformity. LUNGS: Equal air entry with faint crackles in the left posterior base. CVS: S1 and S2 normal with no audible murmurs, regular rhythm. ABDOMEN: No hepatosplenomegaly, normal bowel sounds, no guarding or rigidity. SPINE: No scoliosis or deformity SKIN: No rashes CENTRAL NERVOUS SYSTEM: No focal deficits, tone is normal in all 4 extremities. Extremities: The right upper extremity is maintained in a sling. No peripheral edema. No clubbing, no cyanosis. Peripheral pulses are intact. - Labs CBC & Chem 7: 04/15/16 14:48 04/15/16 14:48 Assessment and Plan Plan: Impression: #1 Trauma including right clavicular fracture and multiple right-sided rib fractures secondary to slip and fall well out shoveling. #2 Right mid diaphyseal clavicular fracture mildly comminuted with bayonet deformity secondary to fall. #3 Posterior lateral right rib fractures of the fourth fifth and sixth ribs. No evidence of pneumothorax. #4 Hypertension. #5 History of colon cancer status post hemicolectomy. #6 Osteoarthritis. Plan: The patient was seen and evaluated by Dr. Pedroza. His chest x-ray was reviewed. There is some new atelectatic changes of the left posterior base. The patient is again encouraged regarding the increased use of the incentive spirometer and cough and deep breathing exercises. He is cleared for discharge from the pulmonary standpoint and could be followed up in the office in 1-2 weeks' time for repeat chest x-ray. He is encouraged to call sooner with any worsening of symptoms or other questions or concerns.
== END 2016-04-17 14:50 | disposition home or self-care (01) | DRG 563 ==
LOC: EC 10:33 → 3SUR 14:45
PROVIDERS: ADMIT Surgery; ATTEND Surgery
DX: S42.001A Fracture of unspecified part of right clavicle, initial encounter for closed fracture (principal); S22.41XA Multiple fractures of ribs, right side, initial encounter for closed fracture; I11.9 Hypertensive heart disease without heart failure; D32.9 Benign neoplasm of meninges, unspecified; H91.90 Unspecified hearing loss, unspecified ear; M19.90 Unspecified osteoarthritis, unspecified site; R51 Headache; Z85.038 Personal history of other malignant neoplasm of large intestine; Z87.891 Personal history of nicotine dependence; Z79.899 Other long term (current) drug therapy; Z82.49 Family history of ischemic heart disease and other diseases of the circulatory system; W00.0XXA Fall on same level due to ice and snow, initial encounter; Y93.H1 Activity, digging, shoveling and raking; Y92.9 Unspecified place or not applicable
CPT/HCPCS: 70450; 71020; 72125; 80053; 85025; 96374; 99284

== ENCOUNTER 2016-04-18 22:56 | Emergency (ER) | payer BC ==
[2016-04-18] MEDS ORDERED: MAG HYDROX/AL HYDROX/SIMETH 30 ML, HYOSCYAMINE ELIXIR 10 ML, CIMETIDINE HCL 300 MG, LID... PO STA ×4 (23:55)
--- NOTE | 2016-04-19 00:15 | ED ---
General Adult HPI - General Chief complaint: Abdominal Pain Stated complaint: Abd Pain/Hiccups Time Seen by Provider: 04/18/16 23:40 Source: patient Mode of arrival: ambulatory Limitations: no limitations - History of Present Illness Initial comments: Patient is a 65-year-old male with chief complaint of diffuse abdominal pain as he is not able to have a bowel movement 4 days. Patient also reports that he's had increased cups intermittently over the past day and half. Patient reports that his hiccups or worsened as patient has recently been in the emergency room and admitted for a fall which she sustained 3 left-sided rib fractures. Patient reports that every time he has a headache up the rib fractures her worse. Patient denies any other symptoms related to the pain including chest pain or shortness of breath. Patient denies any nausea or vomiting. Patient reports that he's passed some gas today however he feels as if he is very constipated. Patient reports that he has been placed on narcotic pain medications with has exacerbated this constipation. - Related Data Home Medications Medication Instructions Recorded Confirmed Lisinopril 30 mg PO DAILY 04/15/16 04/19/16 Loratadine [Claritin] 10 mg PO DAILY 04/15/16 04/19/16 Previous Rx's Medication Instructions Recorded Hydrocodone/Acetaminophen [[place] 1 - 2 each PO Q6HR PRN #90 tab 04/16/16 5-325] Sennosides-Docusate Sodium 2 tab PO DAILY #60 tablet 04/16/16 [Senokot-S] Allergies Allergy/AdvReac Type Severity Reaction Status Date / Time No Known Allergies Allergy Verified 04/19/16 09:32 Review of Systems ROS Statement: Those systems with pertinent positive or pertinent negative responses have been documented in the HPI. ROS Other: All systems not noted in ROS Statement are negative. Past Medical History Past Medical History: Cancer, Hearing Disorder / Deafness, Hypertension, Osteoarthritis (OA) Additional Past Medical History / Comment(s): colon ca 1998 removed, allergies History of Any Multi-Drug Resistant Organisms: None Reported Past Surgical History: Appendectomy Additional Past Surgical History / Comment(s): colon removed secondary to ca, only has semicolon, right cataract surgery, Past Anesthesia/Blood Transfusion Reactions: No Reported Reaction Past Psychological History: No Psychological Hx Reported Smoking Status: Former smoker Past Alcohol Use History: Occasional Past Drug Use History: None Reported - Past Family History Mother Family Medical History: Cancer (Mother at age of 90 from breast cancer, congestive heart failure, and renal cancer.) Father Family Medical History: CVA/TIA (Father at age of 81 from stroke.) Brother(s) Family Medical History: Cancer (Patient had 4 brothers 3 are alive and okay and one from pancreatic cancer per) Sister(s) Family Medical History: No Reported History (Patient had 2 sisters one is alive and okay the other one from neurofibroma and she ended up with MRSA through a pressure ulcer.) Son(s) Family Medical History: No Reported History (Patient has one son no major medical problems for) General Exam - General Exam Comments Initial Comments: Patient is a pleasant 65-year-old male. He does not appear to be in any acute distress. Limitations: no limitations General appearance: alert, in no apparent distress Head exam: Present: atraumatic, normocephalic, normal inspection Eye exam: Present: normal appearance, PERRL, EOMI. Absent: scleral icterus, conjunctival injection, periorbital swelling ENT exam: Present: normal exam, mucous membranes moist Neck exam: Present: normal inspection. Absent: tenderness, meningismus, lymphadenopathy Respiratory exam: Present: normal lung sounds bilaterally. Absent: respiratory distress, wheezes, rales, rhonchi, stridor Cardiovascular Exam: Present: regular rate, normal rhythm, normal heart sounds. Absent: systolic murmur, diastolic murmur, rubs, gallop, clicks GI/Abdominal exam: Present: soft, distended (Abdomen is distended. Patient has no evidence of any focal tenderness.), normal bowel sounds. Absent: tenderness , guarding, rebound, rigid Extremities exam: Present: normal inspection, full ROM, normal capillary refill. Absent: tenderness, pedal edema, joint swelling, calf tenderness Back exam: Present: normal inspection Neurological exam: Present: alert, oriented X3, CN II-XII intact Psychiatric exam: Present: normal affect, normal mood Skin exam: Present: warm, dry, intact, normal color. Absent: rash Course Vital Signs 04/18/16 04/19/16 04/19/16 23:07 02:04 02:51 Temperature 97.6 F 98.4 F 98.0 F Pulse Rate 95 92 100 Respiratory 22 22 18 Rate Blood Pressure 140/82 144/88 119/71 O2 Sat by Pulse 98 97 96 Oximetry Medical Decision Making - Medical Decision Making Patient is a well-appearing 65-year-old male with a chief complaint of constipation and intermittent hiccups for the past day and a half. Patient is recently diagnosed with rib fractures in the right clavicle fracture which those pains are worsened with the hiccups. Patient is given GI cocktail. Patient was also given a soapsuds enema to needing decompression the distended bowels. KUB x-ray reveals evidence of ileus or gastroenteritis changes. She denies any other surgical history of the abdomen. After soapsunds enema, patient had a large bowel movement. Patient also was given Magnesium citrate to go home with to use. Patient reports he wants to go home at this time. Patients hiccups have subsided at this time after IM thorazine, and drinking large glass of cold water. I discussed this case with Dr. Loya, and he advised the enemas and mag citrate. Return parameters discussed. I advised patient needs to continue to take pain medication and continue using spirometry to avoid pneumonia. Patient also advised to walk frequently to continue to promote bowel movements. PAtient understands treatment planand will omply. - Radiology Data Radiology results: report reviewed XRay KUB shows ileus and gastroenteritis changes. Non obstructing bowel gas pattern. Disposition Clinical Impression: Constipation, Intractable hiccups Disposition: HOME SELF-CARE Condition: Good Instructions: Constipation (ED), Hiccups (ED) Additional Instructions: Patient advised to do second magnesium citrate on Thursday evening. Patient advised to continue to ambulate to help with stools and gas production. Return to the EC if any alarming signs or symptoms occur. Follow-up with primary care provider on Thursday. Referrals: Mynor Martell MD [Primary Care Provider] - 1-2 days Time of Disposition: 02:58
--- NOTE | 2016-04-19 00:23 | XR ---
EXAMINATION TYPE: XR KUB DATE OF EXAM: 04/19/2016 12:03 AM CLINICAL HISTORY: Patient presents with hiccups and abdominal pain. TECHNIQUE: 2 frontal upright radiographs of abdomen were obtained. COMPARISON: None. FINDINGS: Mild to moderate gas distention of bowel loops with air-fluid levels are noted in the abdomen with mi ld ileus or enteritis changes. No significant bowel obstruction is suggested at this time. There is no visceromegaly, pneumoperitoneum, or abnormal calcification appreciated. The lung bases are clear and the osseous structures are intact. IMPRESSION: Mild ileus or enteritis changes. Overall nonobstructive bowel gas pattern.
[2016-04-19] MEDS ORDERED: MAGNESIUM CITRATE 296 ML BOTTLE PO ONE ×2 (01:43→02:57)
[2016-04-19] MEDS ORDERED: chlorproMAZINE 25 MG/ML 2 ML AMP IM STA (01:49)
[2016-04-19 02:52] VITALS: BP 119/71; PULSE 100; RESP 18; TEMP 98
== END 2016-04-19 03:03 | disposition home or self-care (01) ==
LOC: EC 22:56
DX: K59.00 Constipation, unspecified (principal); R06.6 Hiccough; H91.90 Unspecified hearing loss, unspecified ear; Z87.891 Personal history of nicotine dependence
CPT/HCPCS: 74000; 99284; 96372; J3230

== ENCOUNTER 2016-04-19 09:26 | Inpatient (IN) | payer BC, MEDICARE ==
--- NOTE | 2016-04-19 10:17 | ED ---
General Adult HPI - General Chief complaint: Abdominal Pain Stated complaint: CONSTIPATION, HICCUPS Time Seen by Provider: 04/19/16 09:40 Source: patient, RN notes reviewed Mode of arrival: ambulatory Limitations: no limitations - History of Present Illness Initial comments: This is a 65-year-old male who presents to the emergency department complaining of constipation. Patient states he broke collarbone on some ribs recently and he has been taking [place]. Patient states the cost. Last 4 days and now his upper abdomen feels distended and he is nauseated and vomited times one. Patient denies any chest pain palpitations or difficulty breathing however the patient is only oxygenating 91% on room air and he does not appear to be splinting. Patient denies any fever or chills. Patient denies headache patient denies numbness weakness. - Related Data Home Medications Medication Instructions Recorded Confirmed Lisinopril 30 mg PO QAM 04/15/16 04/19/16 Loratadine [Claritin] 10 mg PO QAM 04/15/16 04/19/16 Hydrocodone/Acetaminophen [[place] 1 - 2 tab PO Q6HR PRN 04/19/16 04/19/16 5-325] Previous Rx's Medication Instructions Recorded Sennosides-Docusate Sodium 2 tab PO DAILY #60 tablet 04/16/16 [Senokot-S] Allergies Allergy/AdvReac Type Severity Reaction Status Date / Time No Known Allergies Allergy Verified 04/19/16 12:03 Review of Systems ROS Statement: Those systems with pertinent positive or pertinent negative responses have been documented in the HPI. ROS Other: All systems not noted in ROS Statement are negative. Past Medical History Past Medical History: Cancer, Hearing Disorder / Deafness, Hypertension, Osteoarthritis (OA) Additional Past Medical History / Comment(s): colon ca 1998 removed, allergies History of Any Multi-Drug Resistant Organisms: None Reported Past Surgical History: Appendectomy Additional Past Surgical History / Comment(s): colon removed secondary to ca, only has semicolon, right cataract surgery, Past Anesthesia/Blood Transfusion Reactions: No Reported Reaction Past Psychological History: No Psychological Hx Reported Smoking Status: Former smoker Past Alcohol Use History: Occasional Past Drug Use History: None Reported - Past Family History Mother Family Medical History: Cancer (Mother at age of 90 from breast cancer, congestive heart failure, and renal cancer.) Father Family Medical History: CVA/TIA (Father at age of 81 from stroke.) Brother(s) Family Medical History: Cancer (Patient had 4 brothers 3 are alive and okay and one from pancreatic cancer per) Sister(s) Family Medical History: No Reported History (Patient had 2 sisters one is alive and okay the other one from neurofibroma and she ended up with MRSA through a pressure ulcer.) Son(s) Family Medical History: No Reported History (Patient has one son no major medical problems for) General Exam - General Exam Comments Initial Comments: GENERAL: Patient is well-developed and well-nourished. Patient is nontoxic and well- hydrated and is in moderate distress. ENT: Neck is soft and supple. No significant lymphadenopathy is noted. Oropharynx is clear. Moist mucous membranes. Neck has full range of motion without eliciting any pain. EYES: The sclera were anicteric and conjunctiva were pink and moist. Extraocular movements were intact and pupils were equal round and reactive to light. Eyelids were unremarkable. PULMONARY: Unlabored respirations. Good breath sounds bilaterally. No audible rales rhonchi or wheezing was noted. CARDIOVASCULAR: There is a regular rate and rhythm without any murmurs gallops or rubs. ABDOMEN: Soft and nontender with normal bowel sounds. No palpable organomegaly was noted. There is no palpable pulsatile mass. SKIN: Skin is clear with no lesions or rashes and otherwise unremarkable. NEUROLOGIC: Patient is alert and oriented x3. Cranial nerves II through XII are grossly intact. Motor and sensory are also intact. Normal speech, volume and content. Symmetrical smile. MUSCULOSKELETAL: Normal extremities with adequate strength and full range of motion. No lower extremity swelling or edema. No calf tenderness. LYMPHATICS: No significant lymphadenopathy is noted PSYCHIATRIC: Normal psychiatric evaluation. Normal interpersonal interactions appears functionally intact in deals appropriately with others. No signs of depression. No signs of anxiety. Limitations: no limitations Course Vital Signs 04/19/16 04/19/16 04/19/16 09:32 09:46 11:53 Temperature 98.4 F Pulse Rate 110 H 95 83 Respiratory 16 22 18 Rate Blood Pressure 147/59 179/75 124/57 O2 Sat by Pulse 91 L 95 93 L Oximetry Medical Decision Making - Medical Decision Making KUB shows possible small bowel obstruction. Computed tomography scan of the abdomen pelvis show small bowel obstruction. ng tube placement I spoke with Dr. Sellers and he wanted the surgeon to admit the patient and he wanted the surgeon on-call Spoke with Dr. Barrett and Dr. Bragg admitted the patient and came down and saw the patient immediately - Lab Data Result diagrams: 04/19/16 10:40 04/19/16 10:40 Lab Results 04/19/16 04/19/16 Range/Units 10:40 10:40 WBC 7.7 (3.8-10.6) k/uL RBC 4.72 (4.30-5.90) m/uL Hgb 14.8 (13.0-17.5) gm/dL Hct 44.3 (39.0-53.0) % MCV 93.8 (80.0-100.0) fL MCH 31.4 (25.0-35.0) pg MCHC 33.5 (31.0-37.0) g/dL RDW 12.9 (11.5-15.5) % Plt Count 303 (150-450) k/uL Neutrophils % (Manual) 76.0 % Band Neutrophils % 7.0 % Lymphocytes % (Manual) 6.0 % Monocytes % (Manual) 10.0 % Metamyelocytes % 1.0 % Neutrophils # (Manual) 6.4 (1.3-7.7) k/uL Lymphocytes # (Manual) 0.5 L (1.0-4.8) k/uL Monocytes # (Manual) 0.8 (0-1.0) k/uL Nucleated RBCs 0 (0-0) /100 WBC Polychromasia Present Sodium 133 L (137-145) mmol/L Potassium 4.0 (3.5-5.1) mmol/L Chloride 92 L (98-107) mmol/L Carbon Dioxide 27 (22-30) mmol/L Anion Gap 14 mmol/L BUN 25 H (9-20) mg/dL Creatinine 0.91 (0.66-1.25) mg/dL Est GFR (MDRD) Af Amer >60 (>60 ml/min/1.73 sqM) Est GFR (MDRD) Non-Af >60 (>60 ml/min/1.73 sqM) Glucose 159 H (74-99) mg/dL Calcium 9.0 (8.4-10.2) mg/dL Total Bilirubin 1.5 H (0.2-1.3) mg/dL AST 37 (17-59) U/L ALT 31 (21-72) U/L Alkaline Phosphatase 65 (38-126) U/L Total Protein 7.2 (6.3-8.2) g/dL Albumin 4.0 (3.5-5.0) g/dL Amylase 32 (30-110) U/L Lipase 18 L (23-300) U/L Disposition Clinical Impression: Small bowel obstruction Disposition: ADMITTED IP TO THIS [facility] Time of Disposition: 12:49
--- NOTE | 2016-04-19 10:32 | XR ---
EXAMINATION TYPE: XR KUB DATE OF EXAM: 04/19/2016 10:27 AM COMPARISON: April 19, 2016 HISTORY: Pain TECHNIQUE: Single supine KUB image of the abdomen is obtained FINDINGS: Persistent and progressive dilatation of small bowel with air-fluid levels identified. Small bowel ob struction is not excluded. No convincing evidence for pneumoperitoneum. No unusual calcifications. The osseous structures are intact. IMPRESSION: 1. Persistent and progressive dilatation of small bowel with air-fluid levels identified. Small vera l obstruction is not excluded.
--- NOTE | 2016-04-19 10:32 | XR ---
EXAMINATION TYPE: XR chest 2V DATE OF EXAM: 04/19/2016 10:27 AM COMPARISON: April 16, 2016 HISTORY: Shortness of breath TECHNIQUE: Frontal and lateral views of the chest are obtained. FINDINGS: Scattered senescent parenchymal changes noted. Hyperinflation compatible with COPD. No evidence for infiltrate. Left basilar atelectasis improving. Heart size is stable. Mediastinal structures are stable and grossly unremarkable. No evidence for hilar prominence. Degenerative changes dorsal spine. Multiple right-sided rib fractures with pleural thickening redemon strated. IMPRESSION: 1. No evidence for acute pulmonary disease.
[2016-04-19] MEDS ORDERED: SODIUM CHLORIDE 0.9% 500 ML IV STA (10:35)
[2016-04-19] MEDS ORDERED: PANTOPRAZOLE 40 MG/10 ML VIAL IVP STA (10:35)
[2016-04-19] MEDS ORDERED: ONDANSETRON 4 MG/2 ML VIAL IVP STA (10:37)
[2016-04-19] MEDS ORDERED: RX INFO: IV CONTRAST WAS GIVEN 1 EACH MISC MISCELLANE PRN (10:39)
[2016-04-19 10:59] LABS: CH 32.9; CHCM 35.3; HCT 44.3 % (39.0-53.0); HDW 2.43; HGB 14.8 gm/dL (13.0-17.5); Immature Gran Flag Moderate; MCH 31.4 pg (25.0-35.0); MCHC 33.5 g/dL (31.0-37.0); MCV 93.8 fL (80.0-100.0); RBC 4.72 m/uL (4.30-5.90); RDW 12.9 % (11.5-15.5); WBC 7.7 k/uL (3.8-10.6); WBC (Perox) 7.79
[2016-04-19 11:02] LABS: ALT 31 U/L (21-72); AST 37 U/L (17-59); Alkaline Phosphatase 65 U/L (38-126); Amylase 32 U/L (30-110); Anion Gap 14 mmol/L; Blood Urea Nitrogen 25 mg/dL (9-20); Carbon Dioxide 27 mmol/L (22-30); Chloride 92 mmol/L (98-107); Glucose 159 mg/dL (74-99); Non-African American GFR(MDRD) >60 (>60 ml/min/1.73 sqM); Sodium 133 mmol/L (137-145); Total Bilirubin 1.5 mg/dL (0.2-1.3); Total Protein 7.2 g/dL (6.3-8.2)
[2016-04-19 11:16] LABS: Add Differential Manual Differential
[2016-04-19 11:18] LABS: Nucleated Red Blood Cells 0 /100 WBC (0-0); Polychromasia Present; Total Cells Counted 100
--- NOTE | 2016-04-19 11:48 | CT ---
EXAMINATION TYPE: CT abdomen pelvis w con DATE OF EXAM: 04/19/2016 11:34 AM COMPARISON: NONE HISTORY: Constipation, distention CT DLP: 1062.9 mGycm CONTRAST: CT scan of the abdomen and pelvis is performed without Oral Contrast and with IV Contrast, patient in jected with 100 ml mL of Omnipaque 300. FINDINGS: LUNG BASES-: Basilar atelectasis and small pleural effusions. LIVER/GB: No calcified gallstones. No space occupying hepatic lesion. Biliary tree is of normal ca liber. PANCREAS: No inflammation. No distinct mass. SPLEEN: No splenic enlargement. No lesion seen. ADRENALS: No nodule. No thickening. KIDNEYS/BLADDER: No hydronephrosis. No nephrolithiasis. No disc tinct renal mass. Urinary bladder grossly unremarkable. BOWEL: Dilated stomach and small bowel measuring up to 5 cm extending to the right lower quadrant whe re there appears to be a right lower quadrant transition zone seen best on coronal image 65 of 100. T here appear to be changes of right hemicolectomy with fluid seen at the level of the hepatic flexure and proximal right transverse colon with distal decompression of the colon noted. NG tube is in place . Diverticulosis without diverticulitis. No evidence for free air or abscess. GENITAL ORGANS: No gross abnormality. LYMPH NODES: No greater than 1cm abdominal or pelvic lymph nodes are appreciated. AORTA: No significant abnormality. OSSEOUS STRUCTURES: No significant abnormality is seen. OTHER: Small amount of ascites adjacent to the liver edge. IMPRESSION: 1. Distal small bowel obstruction with right lower quadrant transition zone possibly related to adhes ion. 2. Changes of right hemicolectomy. 3. Basilar effusions and compressive atelectasis. Small amount of ascites.
[2016-04-19] MEDS ORDERED: SODIUM CHLORIDE 0.9% 1,000 ML IV ONE (12:49)
[2016-04-19] MEDS: LIDOCAINE 5% PATCH TOPICAL SCH (13:00)
[2016-04-19] MEDS ORDERED: ONDANSETRON 4 MG/2 ML VIAL IVP PRN (13:20)
[2016-04-19 13:45] LABS: INR 1.1 (<1.1); Prothrombin Time 11.2 sec (9.0-12.0)
[2016-04-19 13:56] VITALS: BMI 27.8
--- NOTE | 2016-04-19 14:17 | P.GSHP ---
History of Present Illness H&P Date: 04/19/16 Chief Complaint: Obstipation Patient is a 65-year-old male who presented about a week ago with a history of fall and fracture of the upper lids. He was admitted at that time and given significant amount of narcotic pain medication and since then has been significantly constipated. He has not had a bowel movement since that episode. He was discharged home after a few days from the index admission. He came back last night and was given enemas and migration citrate and did not respond to that in terms of having bowel movements. He continues to have nausea he vomited once his current abdominal distention with hiccuping. He presented this morning again at which time a computed tomography scan confirmed the presence of an obstruction. - Constitutional Constitutional: Reports malaise, Reports poor appetite - Cardiovascular Cardiovascular: Reports chest pain, Reports orthopnea - Respiratory Respiratory: Reports cough, Reports pain on inspiration - Gastrointestinal Gastrointestinal: Reports abdominal pain, Reports bloating, Reports constipation , Reports vomiting - Genitourinary (Male) Genitourinary: Denies dysuria, Denies hematuria - Musculoskeletal Musculoskeletal: Reports fractures - Integumentary Integumentary: Denies pruritus, Denies rash - Neurological Neurological: Denies numbness, Denies weakness - Psychiatric Psychiatric: Denies anxiety, Denies depression - Endocrine Endocrine: Denies fatigue, Denies weight change - Hematologic/Lymphatic Hematologic/Lymphatic: Denies as per HPI, Denies easy bleeding, Denies easy bruising, Denies lymphadenopathy, Denies lymphedema, Denies thrombophilia - Allergic/Immunologic Allergic/Immunologic: Denies as per HPI, Denies allergic rhinitis, Denies anaphylaxis, Denies angioedema, Denies gluten intolerance, Denies persistent infections, Denies seasonal allergies, Denies urticaria, Denies wheezing Past Medical History Past Medical History: Cancer, Hearing Disorder / Deafness, Hypertension, Osteoarthritis (OA) Additional Past Medical History / Comment(s): colon ca 1998 removed, allergies, rib fractures History of Any Multi-Drug Resistant Organisms: None Reported Past Surgical History: Appendectomy Additional Past Surgical History / Comment(s): colon removed secondary to ca, only has semicolon, right cataract surgery, Past Anesthesia/Blood Transfusion Reactions: No Reported Reaction Past Psychological History: No Psychological Hx Reported Smoking Status: Former smoker Past Alcohol Use History: Occasional Past Drug Use History: None Reported - Past Family History Mother Family Medical History: Cancer (Mother at age of 90 from breast cancer, congestive heart failure, and renal cancer.) Father Family Medical History: CVA/TIA (Father at age of 81 from stroke.) Brother(s) Family Medical History: Cancer (Patient had 4 brothers 3 are alive and okay and one from pancreatic cancer per) Sister(s) Family Medical History: No Reported History (Patient had 2 sisters one is alive and okay the other one from neurofibroma and she ended up with MRSA through a pressure ulcer.) Son(s) Family Medical History: No Reported History (Patient has one son no major medical problems for) Medications and Allergies Home Medications Medication Instructions Recorded Confirmed Type Lisinopril 30 mg PO QAM 04/15/16 04/19/16 History Loratadine [Claritin] 10 mg PO QAM 04/15/16 04/19/16 History Hydrocodone/Acetaminophen [[place] 1 - 2 tab PO Q6HR PRN 04/19/16 04/19/16 History 5-325] Allergies Allergy/AdvReac Type Severity Reaction Status Date / Time No Known Allergies Allergy Verified 04/19/16 12:03 Surgical - Exam Vital Signs Temp Pulse Resp BP Pulse Ox 98.4 F 110 H 16 147/59 91 L 04/19/16 09:32 04/19/16 09:32 04/19/16 09:32 04/19/16 09:32 04/19/16 09:32 - General well developed, moderate pain - Eyes PERRL, normal ocular movement - ENT no hearing loss, no congestion - Neck no masses, trachea midline - Respiratory Somewhat shallow breathing secondary to pain - Cardiovascular Rhythm: regular - Abdomen Abdomen is diffusely tender. There is no guarding or rebound or organomegaly. Abdomen: surgical scars, no guarding, no rigid, no rebound, distended Hernia: none - Integumentary no rash, no abnormal pigmentation - Neurologic no disoriented, no combative - Psychiatric oriented to time, oriented to person, oriented to place, speech is normal, memory intact Results - Labs 04/19/16 10:40 04/19/16 10:40 Abnormal Lab Results - Last 24 Hours (Table) 04/19/16 04/19/16 Range/Units 10:40 10:40 Lymphocytes # (Manual) 0.5 L (1.0-4.8) k/uL Sodium 133 L (137-145) mmol/L Chloride 92 L (98-107) mmol/L BUN 25 H (9-20) mg/dL Glucose 159 H (74-99) mg/dL Total Bilirubin 1.5 H (0.2-1.3) mg/dL Lipase 18 L (23-300) U/L Diabetes panel 04/19/16 Range/Units 10:40 Sodium 133 L (137-145) mmol/L Potassium 4.0 (3.5-5.1) mmol/L Chloride 92 L (98-107) mmol/L Carbon Dioxide 27 (22-30) mmol/L BUN 25 H (9-20) mg/dL Creatinine 0.91 (0.66-1.25) mg/dL Glucose 159 H (74-99) mg/dL Calcium 9.0 (8.4-10.2) mg/dL AST 37 (17-59) U/L ALT 31 (21-72) U/L Alkaline Phosphatase 65 (38-126) U/L Total Protein 7.2 (6.3-8.2) g/dL Albumin 4.0 (3.5-5.0) g/dL Calcium panel 04/19/16 Range/Units 10:40 Calcium 9.0 (8.4-10.2) mg/dL Albumin 4.0 (3.5-5.0) g/dL Pituitary panel 04/19/16 Range/Units 10:40 Sodium 133 L (137-145) mmol/L Potassium 4.0 (3.5-5.1) mmol/L Chloride 92 L (98-107) mmol/L Carbon Dioxide 27 (22-30) mmol/L BUN 25 H (9-20) mg/dL Creatinine 0.91 (0.66-1.25) mg/dL Glucose 159 H (74-99) mg/dL Calcium 9.0 (8.4-10.2) mg/dL Adrenal panel 04/19/16 Range/Units 10:40 Sodium 133 L (137-145) mmol/L Potassium 4.0 (3.5-5.1) mmol/L Chloride 92 L (98-107) mmol/L Carbon Dioxide 27 (22-30) mmol/L BUN 25 H (9-20) mg/dL Creatinine 0.91 (0.66-1.25) mg/dL Glucose 159 H (74-99) mg/dL Calcium 9.0 (8.4-10.2) mg/dL Total Bilirubin 1.5 H (0.2-1.3) mg/dL AST 37 (17-59) U/L ALT 31 (21-72) U/L Alkaline Phosphatase 65 (38-126) U/L Total Protein 7.2 (6.3-8.2) g/dL Albumin 4.0 (3.5-5.0) g/dL - Imaging Additional studies: CT of the abdomen and pelvis suspects bowel obstruction Assessment and Plan (1) Small bowel obstruction Status: Acute (2) Intractable hiccups Status: Acute (3) Multiple fractures of ribs of right side Status: Acute (4) Right clavicle fracture Status: Acute Plan: Patient is a previous history of right hemicolectomy for carcinoid. He has since been asymptomatic for it. He had fallen and fractured his right-sided ribs and clavicle last week since his admission he was using significant amount of narcotic pain medication. He did not have any bowel movements during that admission and was discharged home. He presented in the emergency room last night with distention and obstipation. There was initially discharged after being given enemas and migration straight. He presented with nausea and vomiting. This time or secondary workup with a computed tomography scan revealed bowel obstruction. Due to the fact that the patient was on significant narcotics in the last admission that may have predisposed to this problem. I have placed the patient on ofrimev for pain control with Lidoderm patch for local pain control for the fractures. Due to the fact that he has a significantly distended stomach and NG tube fashion placed which drained over a liter of fluid. The patient does not have peritoneal signs at this time. At this time I would recommend conservative therapy with NG suction and close monitoring. If he does not open up in the next 24-48 ours are shows significant radiological improvement will likely need surgery. I discussed this in detail with the patient. Pulmonology consulted due to significant amount of atelectasis and recent rib fractures. Time with Patient: Greater than 30
[2016-04-19] MEDS: METOCLOPRAMIDE 5 MG/ML 2 ML VIAL IVP PRN ×2 (14:23→19:23)
[2016-04-19] MEDS: ACETAMINOPHEN IV (For NPO) 1,000 MG in EMPTY BAG 1 BAG IVPB SCH ×2 (14:25→19:18)
[2016-04-19] MEDS: ENOXAPARIN 40 MG/0.4 ML SYRINGE SQ SCH (14:28)
[2016-04-19] MEDS ORDERED: ENALAPRILAT 1.25 MG/ML 1 ML VIAL IVP PRN (16:02)
--- NOTE | 2016-04-19 16:02 | P.CONS ---
History of Present Illness - Reason for Consult Consult date: 04/19/16 Medical management. Requesting physician: Tiffany Gonzales - Chief Complaint Small bowel obstruction. - History of Present Illness This is a 65-year-old male one of Dr. Martell with a previous medical history significant for hypertension and hypertensive cardiovascular disease with left ventricular hypertrophy, Osteoarthritis, history of colon cancer that was diagnosed back in 1997 post hemicolectomy, history of ALLERGIC rhinitis, hearing disorder, patient is quite active and run at least 9 miles a daily basis on his elliptical machine at home, he was working outside few days ago shoveling snow and suddenly he slipped on ice and he landed on his back first hit his head that he hit his right shoulder and back patient developed to have a significant pain in the right side of his chest as well as right shoulder he was brought into the emergency department at [facility] when he had numerous x-rays and his computed tomography scan of the brain , he was diagnosed with the collarbone fracture as well as rib fractures on the right side and he was placed on pain management and side effect is been getting stool softener as well as incentive spirometer patient ended up be calming more bloated with increased bowel pain history with nausea and vomiting he came to the emergency department yesterday at around 11:00 and he left at around 3:00 after he did receive an enema 2 with minimal results however he will came back in the morning because of increased abdominal pain and distention associated with nausea and vomiting he had a computed tomography scan of the abdomen and pelvis this time and that showed small bowel obstruction, he was admitted under Dr. Gonzales and we were asked to see him for medical management. Patient had an NG tube placed and he was admitted to the surgical floor. He was placed on IV fluid . Review of Systems Constitutional: Reports weakness, Denies anorexia, Denies fatigue, Denies lethargy, Denies weight gain, Denies weight loss Eyes: denies blurred vision, denies bulging eye, denies decreased vision Ears: bilateral: decreased hearing Ears, nose, mouth and throat: Reports dysphagia, Reports sore throat Cardiovascular: Reports chest pain, Denies decreased exercise tolerance, Denies dyspnea on exertion, Denies phlebitis, Denies rapid heart beat, Denies shortness of breath, Denies syncope Respiratory: Reports cough with sputum, Denies congestion, Denies cough, Denies sleep apnea, Denies snoring, Denies wheezing Gastrointestinal: Reports abdominal pain, Reports bloating, Reports excessive gas, Reports indigestion, Reports loss of appetite, Reports nausea, Reports vomiting, Denies BRBPR, Denies change in bowel habits, Denies melena Genitourinary: Denies dysuria, Denies nocturia Musculoskeletal: Reports fractures, Reports myalgias Musculoskeletal: right: shoulder pain, shoulder stiffness, shoulder swelling, wrist pain, wrist stiffness, wrist swelling, absent: ankle pain, ankle stiffness , ankle swelling, elbow pain, elbow stiffness, elbow swelling, foot pain, foot stiffness, foot swelling, hand pain, hand stiffness, hand swelling, hip pain, hip stiffness, hip swelling, knee pain, knee stiffness, knee swelling Integumentary: Denies pruritus, Denies rash Neurological: Denies numbness, Denies weakness Psychiatric: Reports anxiety, Denies depression Endocrine: Denies fatigue, Denies weight change Past Medical History Past Medical History: Cancer, Hearing Disorder / Deafness, Hypertension, Osteoarthritis (OA) Additional Past Medical History / Comment(s): colon ca 1998 removed, allergies, rib fractures History of Any Multi-Drug Resistant Organisms: None Reported Past Surgical History: Appendectomy Additional Past Surgical History / Comment(s): colon removed secondary to ca, only has semicolon, right cataract surgery, Past Anesthesia/Blood Transfusion Reactions: No Reported Reaction Past Psychological History: No Psychological Hx Reported Smoking Status: Former smoker Past Alcohol Use History: Occasional Past Drug Use History: None Reported - Past Family History Mother Family Medical History: Cancer (Mother at age of 90 from breast cancer, congestive heart failure, and renal cancer.) Father Family Medical History: CVA/TIA (Father at age of 81 from stroke.) Brother(s) Family Medical History: Cancer (Patient had 4 brothers 3 are alive and okay and one from pancreatic cancer per) Sister(s) Family Medical History: No Reported History (Patient had 2 sisters one is alive and okay the other one from neurofibroma and she ended up with MRSA through a pressure ulcer.) Son(s) Family Medical History: No Reported History (Patient has one son no major medical problems for) Medications and Allergies Home Medications Medication Instructions Recorded Confirmed Type Lisinopril 30 mg PO QAM 04/15/16 04/19/16 History Loratadine [Claritin] 10 mg PO QAM 04/15/16 04/19/16 History Hydrocodone/Acetaminophen [[place] 1 - 2 tab PO Q6HR PRN 04/19/16 04/19/16 History 5-325] Allergies Allergy/AdvReac Type Severity Reaction Status Date / Time No Known Allergies Allergy Verified 04/19/16 12:03 Physical Exam Vitals: Vital Signs Temp Pulse Pulse Resp BP BP Pulse Ox 04/19/16 14:13 96.3 F L 96 17 152/76 92 L 04/19/16 13:18 97.4 F L 95 20 136/68 93 L Intake and Output 04/19/16 04/19/16 04/19/16 06:59 14:59 22:59 Output Total 1800 Balance -1800 Output: Gastric Drainage 1800 Other: Weight 90.718 kg Patient Weight 04/20/16 06:59 Weight 90.718 kg - Constitutional General appearance: average body habitus, mild distress - EENT Eyes: anicteric sclerae, PERRLA, no ptosis, no scleral icterus, normal appearance (NG tube in place.) ENT: hard of hearing, normal oropharynx, no thrush Ears: bilateral: normal - Neck Neck: no lymphadenopathy, normal ROM, no rigidity, no stridor, no thyromegaly Carotids: bilateral: upstroke normal Thyroid: bilateral: normal size - Respiratory Respiratory: bilateral: diminished, negative: dullness, rales, rhonchi, wheezing , prolonged expiration, prolonged inspiration - Cardiovascular Rhythm: regular Heart sounds: normal: S1, S2 Abnormal Heart Sounds: no systolic murmur, no S3 Gallop, no S4 Gallop - Gastrointestinal General gastrointestinal: absent bowel sounds, soft, tenderness, no umbilical hernia, no ventral hernia - Integumentary Integumentary: normal, normal turgor - Neurologic Neurologic: CNII-XII intact - Musculoskeletal Musculoskeletal: strength equal bilaterally - Psychiatric Psychiatric: A&O x's 3, appropriate affect, intact judgment & insight Results CBC & Chem 7: 04/19/16 10:40 04/19/16 10:40 Assessment and Plan Plan: Assessment and plan: 1. Acute small bowel obstruction. NG tube, IV fluid resuscitation, IV Zofran 4 mg IV push every 6 hours as needed, IV pain management, general surgery is following. Repeat abdominal x-ray tomorrow morning. 2. Recent right posterior rib fractures and right fibular fracture. Continue since parameter to reduce the incidence of atelectasis and hospital-acquired pneumonia, continue with IV pain management as well as IV fluid. 3. Hyponatremia with minimal prerenal azotemia. Continue IV fluid resuscitation repeat CMP tomorrow morning along with magnesium level. 4. Hypertension and hypertensive cardio vascular disease. Substituted lisinopril Vasotec 1.25 mg IV push every 6 hours as needed for systolic blood pressure greater than or equal to 1 50 mmHg. 5. History of carcinoid tumor status post right hemicolectomy. Currently in remission 6. DVT prophylaxis. Lovenox 40 mg subcutaneously every 24 hours. 7. GI prophylaxis. Protonix 40 mg IV push every [address] Gonzales for allowing me to participate in the care of your patient we will follow the patient with you.
[2016-04-19] MEDS ORDERED: MORPHINE SULFATE 2 MG/ML SYRINGE IVP PRN (16:58)
[2016-04-20] MEDS: METOCLOPRAMIDE 5 MG/ML 2 ML VIAL IVP PRN ×4 (00:30→20:48)
[2016-04-20] MEDS: ACETAMINOPHEN IV (For NPO) 1,000 MG in EMPTY BAG 1 BAG IVPB SCH ×4 (00:30→17:13)
[2016-04-20 07:07] LABS: CH 32.8; CHCM 34.7; HCT 41.1 % (39.0-53.0); HDW 2.43; HGB 13.7 gm/dL (13.0-17.5); Immature Gran Flag Marked; MCH 31.7 pg (25.0-35.0); MCHC 33.3 g/dL (31.0-37.0); Mean Platelet Volume 6.8; RBC 4.33 m/uL (4.30-5.90); RDW 12.8 % (11.5-15.5); WBC (Perox) 6.36
[2016-04-20 07:15] LABS: ALT 34 U/L (21-72); AST 35 U/L (17-59); Alkaline Phosphatase 62 U/L (38-126); Anion Gap 11 mmol/L; Blood Urea Nitrogen 34 mg/dL (9-20); Calcium 8.2 mg/dL (8.4-10.2); Carbon Dioxide 29 mmol/L (22-30); Chloride 96 mmol/L (98-107); Glucose 126 mg/dL (74-99); Magnesium 2.6 mg/dL (1.6-2.3); Non-African American GFR(MDRD) >60 (>60 ml/min/1.73 sqM); Potassium 3.7 mmol/L (3.5-5.1); Sodium 136 mmol/L (137-145); Total Bilirubin 1.2 mg/dL (0.2-1.3); Total Protein 6.4 g/dL (6.3-8.2)
[2016-04-20] MEDS: LISINOPRIL 10 MG TAB PO SCH (07:22)
[2016-04-20] MEDS: LIDOCAINE 5% PATCH TOPICAL SCH (07:23)
--- NOTE | 2016-04-20 08:19 | XR ---
EXAMINATION TYPE: XR abdomen acute w cxr DATE OF EXAM: 04/20/2016 8:08 AM COMPARISON: April 19, 2016 HISTORY: Pain follow-up TECHNIQUE: Single view of the chest and 2 views of the abdomen are submitted. FINDINGS: Single view of the chest fails demonstrate evidence for acute pulmonary disease. NG tube should be a dvanced. Port is at the GE junction. There is no evidence for pneumoperitoneum. Persistent dilatation of small bowel with air-fluid levels identified. No mass effects are seen. No unusual calcifications. IMPRESSION: Persistent dilatation of small bowel with air-fluid levels identified.
[2016-04-20 08:28] LABS: Add Differential Manual Differential
[2016-04-20 08:31] LABS: Nucleated Red Blood Cells 0 /100 WBC (0-0); Polychromasia Present; Total Cells Counted 100
--- NOTE | 2016-04-20 10:30 | P.PN ---
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 with a previous medical history significant for hypertension and hypertensive cardiovascular disease with left ventricular hypertrophy, Osteoarthritis, history of colon cancer that was diagnosed back in 1997 post hemicolectomy, history of ALLERGIC rhinitis, hearing disorder, patient is quite active and run at least 9 miles a daily basis on his elliptical machine at home, he was working outside few days ago shoveling snow and suddenly he slipped on ice and he landed on his back first hit his head that he hit his right shoulder and back patient developed to have a significant pain in the right side of his chest as well as right shoulder he was brought into the emergency department at [facility] when he had numerous x-rays and his computed tomography scan of the brain , he was diagnosed with the collarbone fracture as well as rib fractures on the right side and he was placed on pain management and side effect is been getting stool softener as well as incentive spirometer patient ended up be calming more bloated with increased bowel pain history with nausea and vomiting he came to the emergency department yesterday at around 11:00 and he left at around 3:00 after he did receive an enema 2 with minimal results however he will came back in the morning because of increased abdominal pain and distention associated with nausea and vomiting he had a computed tomography scan of the abdomen and pelvis this time and that showed small bowel obstruction, he was admitted under Dr. Gonzales and we were asked to see him for medical management. Patient had an NG tube placed and he was admitted to the surgical floor. He was placed on IV fluid . 2/5: Patient is sitting up in bed is feeling a lot better today he did have multiple bowel movements that appears to be loose, he had repeated x-ray that showed air-fluid levels however the patient appears to be a lot better with less than 200 mL in the canister from his NG tube. We'll clamp the NG tube along the patient walk around and if the patient continued to be distended and he has to stay for another 24 hours . Objective - Vital Signs Vital signs: Vital Signs Temp 97.6 F 04/20/16 01:11 Pulse 98 04/20/16 01:11 Resp 17 04/20/16 01:11 BP 154/76 04/20/16 01:11 Pulse Ox 92 L 04/20/16 01:11 Intake & Output 04/19/16 04/20/16 04/20/16 18:59 06:59 18:59 Output Total 2074 Balance -2074 Weight 90.718 kg Output: Gastric Drainage 2074 500 Emesis 100 Other: Voiding Method Toilet # Voids 1 1 # Bowel Movements 3 - Exam - Constitutional General appearance: average body habitus, mild distress - EENT Eyes: anicteric sclerae, PERRLA, no ptosis, no scleral icterus, normal appearance (NG tube in place.) ENT: hard of hearing, normal oropharynx, no thrush Ears: bilateral: normal - Neck Neck: no lymphadenopathy, normal ROM, no rigidity, no stridor, no thyromegaly Carotids: bilateral: upstroke normal Thyroid: bilateral: normal size - Respiratory Respiratory: bilateral: diminished, negative: dullness, rales, rhonchi, wheezing , prolonged expiration, prolonged inspiration - Cardiovascular Rhythm: regular Heart sounds: normal: S1, S2 Abnormal Heart Sounds: no systolic murmur, no S3 Gallop, no S4 Gallop - Gastrointestinal General gastrointestinal: absent bowel sounds, soft, tenderness, no umbilical hernia, no ventral hernia - Integumentary Integumentary: normal, normal turgor - Neurologic Neurologic: CNII-XII intact - Musculoskeletal Musculoskeletal: strength equal bilaterally - Psychiatric Psychiatric: A&O x's 3, appropriate affect, intact judgment & insight - Labs CBC & Chem 7: 04/20/16 06:32 04/20/16 06:32 Labs: Abnormal Lab Results - Last 24 Hours (Table) 04/20/16 Range/Units 06:32 Sodium 136 L (137-145) mmol/L Chloride 96 L (98-107) mmol/L BUN 34 H (9-20) mg/dL Glucose 126 H (74-99) mg/dL Calcium 8.2 L (8.4-10.2) mg/dL Magnesium 2.6 H (1.6-2.3) mg/dL Assessment and Plan Plan: Assessment and plan: 1. Acute small bowel obstruction. NG tube, IV fluid resuscitation, IV Zofran 4 mg IV push every 6 hours as needed, IV pain management, general surgery is following. Repeat abdominal x-ray tomorrow morning. 2. Recent right posterior rib fractures and right fibular fracture. Continue since parameter to reduce the incidence of atelectasis and hospital-acquired pneumonia, continue with IV pain management as well as IV fluid. 3. Hyponatremia with minimal prerenal azotemia. Continue IV fluid resuscitation repeat CMP tomorrow morning along with magnesium level. 4. Hypertension and hypertensive cardio vascular disease. Substituted lisinopril Vasotec 1.25 mg IV push every 6 hours as needed for systolic blood pressure greater than or equal to 1 50 mmHg. 5. History of carcinoid tumor status post right hemicolectomy. Currently in remission 6. DVT prophylaxis. Lovenox 40 mg subcutaneously every 24 hours. 7. GI prophylaxis. Protonix 40 mg IV push every 24 hours. 8. Repeated x-ray continues to show air-fluid levels however there is less than 200 mL out of the NG tube over the last 24 hours, we will monitor the patient and try to clamp the NG tube. Increase activity.
--- NOTE | 2016-04-20 11:37 | P.PN ---
Subjective Principal diagnosis: Small bowel obstruction Patient is a 65-year-old male who presented with small bowel obstruction. Previous history of multiple abdominal surgeries. Overnight he was placed on nasogastric tube suck and drip. He started passing loose stools as well as flatus. Overall his condition is much better than before. He is not complaining of any pain is ablating well. Objective - Vital Signs Vital signs: Vital Signs Temp 98.4 F 04/20/16 07:00 Pulse 91 04/20/16 07:00 Resp 16 04/20/16 07:00 BP 123/63 04/20/16 07:00 Pulse Ox 91 L 04/20/16 07:00 Intake & Output 04/19/16 04/20/16 04/20/16 18:59 06:59 18:59 Output Total 2074 600 Balance -2074 Weight 90.718 kg Output: Gastric Drainage 2074 500 Emesis 100 Other: Voiding Method Toilet # Voids 1 1 # Bowel Movements 3 - Constitutional General appearance: Present: no acute distress - EENT Eyes: Present: anicteric sclerae, PERRLA - Cardiovascular Rhythm: regular - Gastrointestinal General gastrointestinal: Present: normal bowel sounds, soft. Absent: absent bowel sounds, distended, hepatomegaly, hyperactive bowel sounds, organomegaly, rigid, scaphoid, tenderness, umbilical hernia, ventral hernia - Integumentary Integumentary: Absent: calor, cellulitis, cyanotic, decreased turgor, flushed, jaundiced, normal, normal turgor, pale, rash, ulcer - Neurologic Neurologic: Present: CNII-XII intact. Absent: focal deficits - Psychiatric Psychiatric: Absent: A&O x's 3, appropriate affect, intact judgment & insight - Labs CBC & Chem 7: 04/20/16 06:32 04/20/16 06:32 Labs: Abnormal Lab Results - Last 24 Hours (Table) 04/20/16 Range/Units 06:32 Sodium 136 L (137-145) mmol/L Chloride 96 L (98-107) mmol/L BUN 34 H (9-20) mg/dL Glucose 126 H (74-99) mg/dL Calcium 8.2 L (8.4-10.2) mg/dL Magnesium 2.6 H (1.6-2.3) mg/dL Assessment and Plan (1) Small bowel obstruction Status: Acute (2) Intractable hiccups Status: Acute (3) Multiple fractures of ribs of right side Status: Acute (4) Right clavicle fracture Status: Acute Plan: Patient is now started passing flatus and having bowel movements. His bowel obstruction has not resolved. We will clamp the NG tube and start him off and subsequent clear liquids. If he tolerates liquid without any further problems or remove the NG tube. I anticipate a 24-48 hour further stay.
[2016-04-20] MEDS: ENOXAPARIN 40 MG/0.4 ML SYRINGE SQ SCH (11:48)
--- NOTE | 2016-04-20 14:15 | P.CNPUL ---
History of Present Illness Consult date: 04/20/16 Chief complaint: Chest wall pain, rib fractures History of present illness: 65-year-old male patient who slipped on ice and fell sustaining a blunt trauma to his right chest area. Initially presented emergency department few days back where he was further investigated and he was found to have a clavicular fracture on the right in addition to multilevel rib fractures on the right. This injury occurred on as the patient was shoveling when he slept and fell on the right side of his body. CAT scan of the head and neck revealed no acute fracture or dislocation of the cervical spine. There was no evidence of any intracranial hemorrhage or bleeding. There was evidence of soft tissue edema on the lateral margin of the subcutaneous tissue on the right neck at the level of the thyroid gland. There was evidence of a large interhemispheric fissure will dural calcification or calcified meningioma with no significant mass effect. This was seen on the CAT scan of the head. X-ray of the shoulder showed mild displaced clavicular fracture that was comminuted. The patient was observed for 24-48 hours here in the hospital he was discharged home on [place]. He was maintaining his oxygenation well above 90%. His pain was good control in the time where the discharge. Subsequently, the patient was taken [place] for pain control and he developed small bowel obstruction. He came into the hospital because of increased abdominal distention, nausea, and vomiting. He had received an earlier enema without much of an improvement. CAT scan of the abdomen was done in the emergency department showed small bowel obstruction and general surgery consultation was obtained. NG tube was inserted and drained significant amount of fluid. Subsequent abdominal film today showing still some air-fluid levels however clinical the patient improved his abdomen is deflated and he is passing bowel movements that are small and liquidy. Currently the NG tube been clamped. Review of Systems As above Past Medical History Past Medical History: Cancer, Hearing Disorder / Deafness, Hypertension, Osteoarthritis (OA) Additional Past Medical History / Comment(s): Fall with right clavicular and right-sided fractures, colon cancer in 1997 with a previous colectomy, hypertension, hypertensive heart disease with concentric left ventricular hypertrophy, osteoarthritis, ALLERGIC rhinitis, impaired hearing, questionable meningioma History of Any Multi-Drug Resistant Organisms: None Reported Past Surgical History: Appendectomy Additional Past Surgical History / Comment(s): colon removed secondary to ca, only has semicolon, right cataract surgery, Past Anesthesia/Blood Transfusion Reactions: No Reported Reaction Past Psychological History: No Psychological Hx Reported Smoking Status: Former smoker Past Alcohol Use History: Occasional Past Drug Use History: None Reported - Past Family History Mother Family Medical History: Cancer (Mother at age of 90 from breast cancer, congestive heart failure, and renal cancer.) Father Family Medical History: CVA/TIA (Father at age of 81 from stroke.) Brother(s) Family Medical History: Cancer (Patient had 4 brothers 3 are alive and okay and one from pancreatic cancer per) Sister(s) Family Medical History: No Reported History (Patient had 2 sisters one is alive and okay the other one from neurofibroma and she ended up with MRSA through a pressure ulcer.) Son(s) Family Medical History: No Reported History (Patient has one son no major medical problems for) Medications and Allergies Home Medications Medication Instructions Recorded Confirmed Type Lisinopril 30 mg PO QAM 04/15/16 04/19/16 History Loratadine [Claritin] 10 mg PO QAM 04/15/16 04/19/16 History Hydrocodone/Acetaminophen [[place] 1 - 2 tab PO Q6HR PRN 04/19/16 04/19/16 History 5-325] Allergies Allergy/AdvReac Type Severity Reaction Status Date / Time No Known Allergies Allergy Verified 04/19/16 17:00 Physical Exam Vitals: Vital Signs Temp Pulse Resp BP Pulse Ox 04/20/16 13:57 99.1 F 91 17 142/76 92 L 04/20/16 07:00 98.4 F 91 16 123/63 91 L 04/20/16 01:11 97.6 F 98 17 154/76 92 L 04/19/16 19:18 17 04/19/16 19:17 97.3 F L 94 17 140/73 95 04/19/16 14:13 96.3 F L 96 17 152/76 92 L Intake and Output 04/19/16 04/20/16 04/20/16 22:59 06:59 14:59 Intake Total 800 Output Total 475 400 50 Balance -475 -400 750 Intake: Intake, IV Titration 800 Amount Sodium Chloride 0.9% 1, 800 000 ml @ 100 mls/hr IV . Q10H ONE Rx#:[id number] Output: Gastric Drainage 475 300 50 Emesis 100 Other: Voiding Method Toilet # Voids 1 1 # Bowel Movements 3 Head exam was generally normal. There was no scleral icterus or corneal arcus. Mucous membranes were moist.Neck was supple and without jugular venous distension, thyromegaly, or carotid bruits. Carotids were easily palpable bilaterally. There was no adenopathy. Lungs are diminished in the right lung base along with some obvious deformity and soft tissue swelling in the right upper chest and soft tissue of the neck.Cardiac exam revealed the PMI to be normally situated and sized. The rhythm was regular and no extrasystoles were noted during several minutes of auscultation. The first and second heart sounds were normal and physiologic splitting of the second heart sound was noted. There were no murmurs, rubs, clicks, or gallops. Abdomen slightly distended bowel sounds are hypoactive. There is no direct tenderness, no rebound tenderness or guarding.Examination of the extremities revealed easily palpable radial, femoral and pedal pulses. There was no cyanosis, clubbing or edema. Results - Laboratory Findings CBC and BMP: 04/20/16 06:32 04/20/16 06:32 PT/INR, D-dimer PT 11.2 sec (9.0-12.0) 04/19/16 10:40 INR 1.1 (<1.1) 04/19/16 10:40 Abnormal lab findings: Abnormal Labs 04/20/16 06:32 Sodium 136 L Chloride 96 L BUN 34 H Glucose 126 H Calcium 8.2 L Magnesium 2.6 H Assessment and Plan Plan: Assessment 1 recurrent right-sided rib fractures, traumatic in nature 2 mostly skeletal chest wall pain which is well controlled for now 3 small bowel obstruction probably related to narcotic-induced in addition to small bowel adhesion from previous abdominal surgeries 4 colon cancer with a previous hemicolectomy 5 hypertension with hypertensive heart disease 6 [employer] meningioma 7 osteoarthritis Plan Keep the NG tube in place. Monitor the flat films of the abdomen and surgery to monitor the small bowel obstruction. The pulmonary findings are essentially stable. Patient's chest wall pain is under good control. Provide an incentive spirometer. Repeat chest x-ray was reviewed and will continue to follow. Continue Lovenox for DVT prophylaxis. Morphine for pain control only if needed. We'll try to avoid narcotics as possible and use Tylenol instead.
[2016-04-21] MEDS: ACETAMINOPHEN IV (For NPO) 1,000 MG in EMPTY BAG 1 BAG IVPB SCH ×2 (00:31→05:45)
[2016-04-21] MEDS: METOCLOPRAMIDE 5 MG/ML 2 ML VIAL IVP PRN ×2 (05:42→17:52)
[2016-04-21 06:58] LABS: Basophils % (A) 0 %; CH 32.5; CHCM 34.1; Eosinophils # (A) 0.1 k/uL (0-0.7); Eosinophils % (A) 2 %; HCT 39.4 % (39.0-53.0); HDW 2.52; HGB 12.9 gm/dL (13.0-17.5); Luc # (Auto) 0.22; Luc % (Auto) 3; Lymphocytes # (A) 0.8 k/uL (1.0-4.8); Lymphocytes % (A) 9 %; MCH 31.3 pg (25.0-35.0); MCHC 32.8 g/dL (31.0-37.0); MCV 95.6 fL (80.0-100.0); Monocytes # (A) 0.8 k/uL (0-1.0); Monocytes % (A) 9 %; Neutrophils # (A) 6.6 k/uL (1.3-7.7); Neutrophils % (A) 77 %; RBC 4.12 m/uL (4.30-5.90); RDW 12.7 % (11.5-15.5); WBC 8.6 k/uL (3.8-10.6); WBC (Perox) 9.34
[2016-04-21 06:59] LABS: ALT 40 U/L (21-72); AST 42 U/L (17-59); Alkaline Phosphatase 69 U/L (38-126); Anion Gap 12 mmol/L; Blood Urea Nitrogen 29 mg/dL (9-20); Calcium 8.1 mg/dL (8.4-10.2); Carbon Dioxide 26 mmol/L (22-30); Chloride 96 mmol/L (98-107); Glucose 118 mg/dL (74-99); Non-African American GFR(MDRD) >60 (>60 ml/min/1.73 sqM); Potassium 3.7 mmol/L (3.5-5.1); Sodium 134 mmol/L (137-145); Total Bilirubin 1.2 mg/dL (0.2-1.3); Total Protein 6.4 g/dL (6.3-8.2)
--- NOTE | 2016-04-21 07:43 | XR ---
EXAMINATION TYPE: XR abdomen acute w cxr DATE OF EXAM: 04/21/2016 6:48 AM COMPARISON: NONE HISTORY: Pain TECHNIQUE: Single view of the chest and 2 views of the abdomen are submitted. FINDINGS: Single view of the chest demonstrates right-sided rib fractures with pleural thickening. The lungs ar e clear however. No evidence for pneumothorax. There is no evidence for pneumoperitoneum. Again noted are dilated loops of small bowel without significant interval change in scattered air-flu id levels. Air is seen within a portion of the transverse colon. Surgical sutures are noted within th e right mid abdomen from partial right hemicolectomy. NG tube has been removed. No mass effects are seen. No unusual calcifications. IMPRESSION: No significant interval change in dilated small bowel
[2016-04-21] MEDS: LISINOPRIL 10 MG TAB PO SCH (08:19)
[2016-04-21] MEDS: LORazepam 2 MG/ML SYRINGE IV PRN ×2 (08:19→22:30)
[2016-04-21] MEDS: LIDOCAINE 5% PATCH TOPICAL SCH (08:20)
--- NOTE | 2016-04-21 11:33 | P.CNOR ---
History of Present Illness - [facility] Consult date: 04/21/16 Requesting physician: Juan Francisco Steele Consult reason: other (arm numbness) History of present illness: Patient is pleasant 65 yo male seen at bedside in consultation for right arm numbness. He suffered a fall last week and is being followed by Dr. Juan Francisco Steele for a right clavicle fracture. He has complaints of right arm numbness now which he feels down the whole arm and all digits at times. He is right handed and feels his hand/arm are weak also. He has no left arm symptoms. He denies lower extremity symptoms as well. He had a CT of the Head and neck after the fall which did not show any acute pathology. He has no other complaints. Review of systems are negative for fever, chills, chest pain, shortness of breath, calf pain, headaches, dizziness, stumbling, loss of bowel or bladder, or other. Review of Systems All systems: negative Constitutional: Denies chills, Denies fever Eyes: denies blurred vision, denies pain Ears, nose, mouth and throat: Denies headache, Denies sore throat Cardiovascular: Denies chest pain, Denies shortness of breath Respiratory: Denies cough Gastrointestinal: Denies abdominal pain, Denies diarrhea, Denies nausea, Denies vomiting Musculoskeletal: Denies myalgias Integumentary: Denies pruritus, Denies rash Neurological: Denies ataxia, Denies balance difficulties, Denies weakness Psychiatric: Denies anxiety, Denies depression Endocrine: Denies fatigue, Denies weight change Past Medical History Past Medical History: Cancer, Hearing Disorder / Deafness, Hypertension, Osteoarthritis (OA) Additional Past Medical History / Comment(s): Fall with right clavicular and right-sided fractures, colon cancer in 1997 with a previous colectomy, hypertension, hypertensive heart disease with concentric left ventricular hypertrophy, osteoarthritis, ALLERGIC rhinitis, impaired hearing, questionable meningioma History of Any Multi-Drug Resistant Organisms: None Reported Past Surgical History: Appendectomy Additional Past Surgical History / Comment(s): colon removed secondary to ca, only has semicolon, right cataract surgery, Past Anesthesia/Blood Transfusion Reactions: No Reported Reaction Past Psychological History: No Psychological Hx Reported Smoking Status: Former smoker Past Alcohol Use History: Occasional Past Drug Use History: None Reported - Past Family History Mother Family Medical History: Cancer (Mother at age of 90 from breast cancer, congestive heart failure, and renal cancer.) Father Family Medical History: CVA/TIA (Father at age of 81 from stroke.) Brother(s) Family Medical History: Cancer (Patient had 4 brothers 3 are alive and okay and one from pancreatic cancer per) Sister(s) Family Medical History: No Reported History (Patient had 2 sisters one is alive and okay the other one from neurofibroma and she ended up with MRSA through a pressure ulcer.) Son(s) Family Medical History: No Reported History (Patient has one son no major medical problems for) Medications and Allergies Home Medications Medication Instructions Recorded Confirmed Type Lisinopril 30 mg PO QAM 04/15/16 04/19/16 History Loratadine [Claritin] 10 mg PO QAM 04/15/16 04/19/16 History Hydrocodone/Acetaminophen [[place] 1 - 2 tab PO Q6HR PRN 04/19/16 04/19/16 History 5-325] Allergies Allergy/AdvReac Type Severity Reaction Status Date / Time No Known Allergies Allergy Verified 04/19/16 17:00 Physical Examination Examination of right shoulder and upper extremity; Reveals a fracture bump at clavicle. ROM of shoulder not tested. Painless PROM of elbow, wrist and hand. There is 3/5 weakness at the bicep. 2+/5 weakness at triceps, wrist extensor, and finger extensors. Sensation to touch is intact throughout. Negative Keller' s sign. 2+ radial pulse present and less than 2 sec cap refill. Results - Labs Labs: Abnormal Lab Results - Last 24 Hours (Table) 04/21/16 04/21/16 Range/Units 06:14 06:14 RBC 4.12 L (4.30-5.90) m/uL Hgb 12.9 L (13.0-17.5) gm/dL Lymphocytes # 0.8 L (1.0-4.8) k/uL Sodium 134 L (137-145) mmol/L Chloride 96 L (98-107) mmol/L BUN 29 H (9-20) mg/dL Glucose 118 H (74-99) mg/dL Calcium 8.1 L (8.4-10.2) mg/dL H & H 04/20/16 04/21/16 Range/Units 06:32 06:14 Hgb 13.7 12.9 L (13.0-17.5) gm/dL Hct 41.1 39.4 (39.0-53.0) % Result Diagrams: 04/21/16 06:14 04/21/16 06:14 Assessment and Plan (1) Right clavicle fracture Status: Acute (2) Right arm numbness Narrative/Plan: Patient has right arm numbness and weakness s/p fall. We will request MRI of cervical spine STAT. We will review and make further recommendations as appropriate. Patient reviewed with Dr. Juan Francisco Steele. Status: Acute Time with Patient: Less than 30
[2016-04-21] MEDS: ENOXAPARIN 40 MG/0.4 ML SYRINGE SQ SCH (11:43)
--- NOTE | 2016-04-21 15:22 | P.PN ---
<Leonora Bennett M - Last Filed: 04/21/16 15:12> Subjective A 65-year-old being seen with the attending on rounds this morning patient states he's had 3 loose stools yesterday and 1 stool last night patient states abdominal pain has improved. Patient is being followed by surgical service for abdominal pain likely due to small bowel obstruction. Patient states he is passing gas. The chief complaint this morning is increased pain involving the right arm feels numb. He should states the numbness occurs from the whole arm down to the hand.. Patient suffered a fall last week was admitted and have been followed by Dr. Juan Francisco steele for right clavicle fracture. Will ask orthopedics to evaluate the patient patient states he does have an appointment on April [address] Steele Objective - Vital Signs Vital signs: Vital Signs Temp 97.8 F 04/21/16 14:41 Pulse 88 04/21/16 14:41 Resp 17 04/21/16 14:41 BP 162/82 04/21/16 14:41 Pulse Ox 95 04/21/16 14:41 Intake & Output 04/20/16 04/21/16 04/21/16 18:59 06:59 18:59 Intake Total 1160 200 360 Output Total 50 Balance 1110 200 360 Intake: Intake, IV Titration 800 Amount Sodium Chloride 0.9% 1, 800 000 ml @ 100 mls/hr IV . Q10H ONE Rx#:[id number] Oral 360 200 360 Output: Gastric Drainage 50 Other: Voiding Method Toilet # Voids 2 # Bowel Movements 1 - Exam Physical exam 65-year-old male resting in bed chief complaint is the right shoulder upper extremity numbness with pain Lungs essentially clear with adequate air movement Heart S1-S2 audible regular Abdomen soft nontender not distended passing gas states had 1 stool last evening tolerating clear liquid diet Extremities no edema noted to the bilateral lower extremities is reporting right arm pain with numbness - Labs CBC & Chem 7: 04/21/16 06:14 04/21/16 06:14 Labs: Abnormal Lab Results - Last 24 Hours (Table) 04/21/16 04/21/16 Range/Units 06:14 06:14 RBC 4.12 L (4.30-5.90) m/uL Hgb 12.9 L (13.0-17.5) gm/dL Lymphocytes # 0.8 L (1.0-4.8) k/uL Sodium 134 L (137-145) mmol/L Chloride 96 L (98-107) mmol/L BUN 29 H (9-20) mg/dL Glucose 118 H (74-99) mg/dL Calcium 8.1 L (8.4-10.2) mg/dL Assessment and Plan Plan: Impression Suffered a fall last week resulting in a right clavicle fracture New onset right arm numbness History of colon cancer diagnosed in 1997 with the previous colectomy Fell from a standing position last week resulting in blunt trauma to the right side of the chest Present on admission upper abdominal pain with nausea vomiting suspect due to small bowel obstruction resolving Present on admission intractable hipcups resolved Multiple fractures of the ribs on the right side Plan Consult [facility] to evaluate her right arm numbness Advance diet as tolerated Continue recommendations by pulmonology service Pain control DVT and GI prophylaxis Further recommendations pending Send stool for C. diff The above dictated assessment and findings were discussed with dr greta Rowe and the plan of care have been dictated as directed. Leonora Bennett nurse practitioner acting as a scribe for dr hernandes <Tiffany Hernandes W - Last Filed: 04/22/16 13:38> Objective - Vital Signs Vital signs: Vital Signs Temp 98.2 F 04/22/16 07:00 Pulse 78 04/22/16 07:00 Resp 16 04/22/16 07:00 BP 156/76 04/22/16 07:00 Pulse Ox 95 04/22/16 07:00 Intake & Output 04/21/16 04/22/16 04/22/16 18:59 06:59 18:59 Intake Total 600 180 Balance 600 180 Intake: Oral 600 180 Other: Voiding Method Toilet # Voids 1 - Labs CBC & Chem 7: 04/22/16 08:28 04/22/16 08:28 Labs: Abnormal Lab Results - Last 24 Hours (Table) 04/22/16 04/22/16 Range/Units 08:28 08:28 RBC 4.26 L (4.30-5.90) m/uL Monocytes # 1.2 H (0-1.0) k/uL Sodium 136 L (137-145) mmol/L Chloride 96 L (98-107) mmol/L Glucose 105 H (74-99) mg/dL Assessment and Plan (1) Small bowel obstruction Status: Acute (2) Intractable hiccups Status: Acute (3) Multiple fractures of ribs of right side Status: Acute (4) Right clavicle fracture Status: Acute Plan: The patient states having this weakness since the previous admission for trauma. He has no other neurological symptoms at this time. Since they maybe related to the recent traum for which he was evaluated by the orthopedic team, we will have them revaluate the patient for this. (GRETA)
--- NOTE | 2016-04-21 15:42 | P.PN ---
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 with a previous medical history significant for hypertension and hypertensive cardiovascular disease with left ventricular hypertrophy, Osteoarthritis, history of colon cancer that was diagnosed back in 1997 post hemicolectomy, history of ALLERGIC rhinitis, hearing disorder, patient is quite active and run at least 9 miles a daily basis on his elliptical machine at home, he was working outside few days ago shoveling snow and suddenly he slipped on ice and he landed on his back first hit his head that he hit his right shoulder and back patient developed to have a significant pain in the right side of his chest as well as right shoulder he was brought into the emergency department at [facility] when he had numerous x-rays and his computed tomography scan of the brain , he was diagnosed with the collarbone fracture as well as rib fractures on the right side and he was placed on pain management and side effect is been getting stool softener as well as incentive spirometer patient ended up be calming more bloated with increased bowel pain history with nausea and vomiting he came to the emergency department yesterday at around 11:00 and he left at around 3:00 after he did receive an enema 2 with minimal results however he will came back in the morning because of increased abdominal pain and distention associated with nausea and vomiting he had a computed tomography scan of the abdomen and pelvis this time and that showed small bowel obstruction, he was admitted under Dr. Gonzales and we were asked to see him for medical management. Patient had an NG tube placed and he was admitted to the surgical floor. He was placed on IV fluid . 2/5: Patient is sitting up in bed is feeling a lot better today he did have multiple bowel movements that appears to be loose, he had repeated x-ray that showed air-fluid levels however the patient appears to be a lot better with less than 200 mL in the canister from his NG tube. We'll clamp the NG tube along the patient walk around and if the patient continued to be distended and he has to stay for another 24 hours . 2/6: Patient has been evaluated by orthopedics for right arm numbness since his fall with rib fractures and right clavicle fracture. He also has loss of range of motion and inability to lift the right arm. MRI of the cervical spine has been ordered. Patient has had stools and passing gas. He denies any abdominal pain. Anticipate discharge later today after MRI. Objective - Vital Signs Vital signs: Vital Signs Temp 97.5 F L 04/21/16 07:00 Pulse 80 04/21/16 07:00 Resp 16 04/21/16 07:00 BP 162/78 04/21/16 07:00 Pulse Ox 95 04/21/16 07:00 Intake & Output 04/20/16 04/21/16 04/21/16 18:59 06:59 18:59 Intake Total 1160 200 Output Total 50 Balance 1110 200 Intake: Intake, IV Titration 800 Amount Sodium Chloride 0.9% 1, 800 000 ml @ 100 mls/hr IV . Q10H ONE Rx#:[id number] Oral 360 200 Output: Gastric Drainage 50 Other: Voiding Method Toilet # Voids 2 # Bowel Movements 1 - Exam General appearance: average body habitus, mild distress - EENT Eyes: anicteric sclerae, PERRLA, no ptosis, no scleral icterus, normal appearance (NG tube in place.) ENT: hard of hearing, normal oropharynx, no thrush Ears: bilateral: normal - Neck Neck: no lymphadenopathy, normal ROM, no rigidity, no stridor, no thyromegaly Carotids: bilateral: upstroke normal Thyroid: bilateral: normal size - Respiratory Respiratory: bilateral: diminished, negative: dullness, rales, rhonchi, wheezing , prolonged expiration, prolonged inspiration - Cardiovascular Rhythm: regular Heart sounds: normal: S1, S2 Abnormal Heart Sounds: no systolic murmur, no S3 Gallop, no S4 Gallop - Gastrointestinal General gastrointestinal: Normal bowel sounds, soft, nontenderness, no umbilical hernia, no ventral hernia - Integumentary Integumentary: normal, normal turgor - Neurologic Neurologic: CNII-XII intact - Musculoskeletal Musculoskeletal: strength equal bilaterally - Psychiatric Psychiatric: A&O x's 3, appropriate affect, intact judgment & insight - Labs CBC & Chem 7: 04/21/16 06:14 04/21/16 06:14 Labs: Abnormal Lab Results - Last 24 Hours (Table) 04/21/16 04/21/16 Range/Units 06:14 06:14 RBC 4.12 L (4.30-5.90) m/uL Hgb 12.9 L (13.0-17.5) gm/dL Lymphocytes # 0.8 L (1.0-4.8) k/uL Sodium 134 L (137-145) mmol/L Chloride 96 L (98-107) mmol/L BUN 29 H (9-20) mg/dL Glucose 118 H (74-99) mg/dL Calcium 8.1 L (8.4-10.2) mg/dL Assessment and Plan Plan: 1. Acute small bowel obstruction. Resolved. 2. Recent right posterior rib fractures and right fibular fracture. Continue since parameter to reduce the incidence of atelectasis and hospital-acquired pneumonia. 3. Hyponatremia with minimal prerenal azotemia. 4. Hypertension and hypertensive cardio vascular disease. Substituted lisinopril Vasotec 1.25 mg IV push every 6 hours as needed for systolic blood pressure greater than or equal to 1 50 mmHg. 5. History of carcinoid tumor status post right hemicolectomy. Currently in remission 6. DVT prophylaxis. Lovenox 40 mg subcutaneously every 24 hours. 7. GI prophylaxis. Protonix 40 mg IV push every 24 hours. 8. Numbness to the right arm with decreased range of motion after recent rib fractures and right clavicle fracture. Orthopedic consult. Stat MRI of the cervical spine was ordered. Discharge plan: Home Impression and plan of care have been directed as dictated by the signing physician. Shanelle Connolly nurse practitioner acting as scribe for signing physician. Time with Patient: Greater than 30
--- NOTE | 2016-04-21 16:39 | P.PN ---
Subjective Principal diagnosis: Chest wall pain and rib fractures 65-year-old male patient who slipped on ice and fell sustaining a blunt trauma to his right chest area. Initially presented emergency department few days back where he was further investigated and he was found to have a clavicular fracture on the right in addition to multilevel rib fractures on the right. This injury occurred on as the patient was shoveling when he slept and fell on the right side of his body. CAT scan of the head and neck revealed no acute fracture or dislocation of the cervical spine. There was no evidence of any intracranial hemorrhage or bleeding. There was evidence of soft tissue edema on the lateral margin of the subcutaneous tissue on the right neck at the level of the thyroid gland. There was evidence of a large interhemispheric fissure will dural calcification or calcified meningioma with no significant mass effect. This was seen on the CAT scan of the head. X-ray of the shoulder showed mild displaced clavicular fracture that was comminuted. The patient was observed for 24-48 hours here in the hospital he was discharged home on [place]. He was maintaining his oxygenation well above 90%. His pain was good control in the time where the discharge. Subsequently, the patient was taken [place] for pain control and he developed small bowel obstruction. He came into the hospital because of increased abdominal distention, nausea, and vomiting. He had received an earlier enema without much of an improvement. CAT scan of the abdomen was done in the emergency department showed small bowel obstruction and general surgery consultation was obtained. NG tube was inserted and drained significant amount of fluid. Subsequent abdominal film today showing still some air-fluid levels however clinical the patient improved his abdomen is deflated and he is passing bowel movements that are small and liquidy. Currently the NG tube been clamped. Patient was reevaluated today on 04/21/2016, his doing quite well, and no shortness of breath, chest x-ray is reassuring. Objective - Vital Signs Vital signs: Vital Signs Temp 97.8 F 04/21/16 14:41 Pulse 88 04/21/16 14:41 Resp 17 04/21/16 14:41 BP 162/82 04/21/16 14:41 Pulse Ox 95 04/21/16 14:41 Intake & Output 04/20/16 04/21/16 04/21/16 18:59 06:59 18:59 Intake Total 1160 200 360 Output Total 50 Balance 1110 200 360 Intake: Intake, IV Titration 800 Amount Sodium Chloride 0.9% 1, 800 000 ml @ 100 mls/hr IV . Q10H ONE Rx#:[id number] Oral 360 200 360 Output: Gastric Drainage 50 Other: Voiding Method Toilet # Voids 2 # Bowel Movements 1 - Exam Head exam was generally normal. There was no scleral icterus or corneal arcus. Mucous membranes were moist.Neck was supple and without jugular venous distension, thyromegaly, or carotid bruits. Carotids were easily palpable bilaterally. There was no adenopathy. Lungs are diminished in the right lung base along with some obvious deformity and soft tissue swelling in the right upper chest and soft tissue of the neck.Cardiac exam revealed the PMI to be normally situated and sized. The rhythm was regular and no extrasystoles were noted during several minutes of auscultation. The first and second heart sounds were normal and physiologic splitting of the second heart sound was noted. There were no murmurs, rubs, clicks, or gallops. Abdomen slightly distended bowel sounds are hypoactive. There is no direct tenderness, no rebound tenderness or guarding.Examination of the extremities revealed easily palpable radial, femoral and pedal pulses. There was no cyanosis, clubbing or edema. - Labs CBC & Chem 7: 04/21/16 06:14 04/21/16 06:14 Labs: Abnormal Lab Results - Last 24 Hours (Table) 04/21/16 04/21/16 Range/Units 06:14 06:14 RBC 4.12 L (4.30-5.90) m/uL Hgb 12.9 L (13.0-17.5) gm/dL Lymphocytes # 0.8 L (1.0-4.8) k/uL Sodium 134 L (137-145) mmol/L Chloride 96 L (98-107) mmol/L BUN 29 H (9-20) mg/dL Glucose 118 H (74-99) mg/dL Calcium 8.1 L (8.4-10.2) mg/dL Assessment and Plan Plan: 1 recurrent right-sided rib fractures, traumatic in nature 2 mostly skeletal chest wall pain which is well controlled for now 3 small bowel obstruction probably related to narcotic-induced in addition to small bowel adhesion from previous abdominal surgeries. This has resolved today , and the patient denies any GI symptoms. 4 colon cancer with a previous hemicolectomy 5 hypertension with hypertensive heart disease 6 [employer] meningioma 7 osteoarthritis Recommendation: Consider discharge planning today and follow-up on outpatient basis. Time with Patient: Less than 30
--- NOTE | 2016-04-21 17:01 | MR ---
MRI CERVICAL SPINE: CLINICAL HISTORY: Neck and arm pain worse in right upper extremity after recent fall. TECHNIQUE: Multiplanar, multisequence imaging of the cervical spine is performed without IV contrast. COMPARISON: CT cervical spine April 15, 2016 FINDINGS: : Exam is suboptimal as is significantly degraded by motion artifact. Sagittal images of th e cervical spine show the craniocervical junction to appear within normal limits. The cervical and u pper thoracic spinal cord is normal in caliber and signal. Slight grade 1 retrolisthesis of C5 on C6 and C6 on C7 is redemonstrated. Spinal canal stenosis at these levels is seen on sagittal images as w ell as at C3-C4 disc space level. The vertebral body heights are normal. There is moderate to advance d disc space narrowing C5-C6 and C6-C7 levels with posterior spur disc complex is present on sagittal images. The bone marrow signal intensity is overall heterogeneous and somewhat low on T1 signal, lik connor within normal limits though it is degraded by artifact as is fairly isointense to muscle on T1-we ighted images, suspect product of osteoporosis or demineralization, myeloproliferative disorder shoul d be excluded clinically. Mild to moderate anterior spurring in the lower cervical spine is present. Axial images show small central disc protrusion at C2-C3 level mildly effacing anterior thecal sac, b ilateral neural foramina are patent. Axial images at the C3-C4 level show uncovertebral facet degenerative changes bilaterally contributin g to mild bilateral neural foraminal narrowing. Small left paracentral disc protrusion mildly effaces anterior thecal sac at this level. Axial images at the C4-C5 level shows central disc protrusion mildly effacing anterior thecal sac. Th ere are uncovertebral facet degenerative changes bilaterally causing moderate left greater than right neural foraminal narrowing at this level. Axial images at the C5-C6 level show uncovertebral facet degenerative changes bilaterally causing adv anced left and moderate to advanced right-sided neural foraminal narrowing. There is prominent centra l disc protrusion effacing the anterior thecal sac causing indentation of ventral surface of spinal c ord. Artifact is present limiting evaluation. Axial images at C6-C7 level show uncovertebral facet degenerative changes bilaterally. There is centr al disc protrusion effacing anterior thecal sac. Moderate bilateral neural foraminal narrowing is fel t present. Axial images at C7-T1 level show small hemangioma at inferior C7 vertebral body level. Spinal canal i s preserved and bilateral neural foramina are felt patent. IMPRESSION: Suboptimal study due to artifact degradation, there are multilevel degenerative changes i n the cervical spine seen with most pronounced spinal canal effacement or stenosis noted at C5-C6 lev el. Further details are noted as discussed in body of report.
[2016-04-21] MEDS: FAMOTIDINE 20 MG TAB PO SCH (20:11)
[2016-04-22] MEDS: FAMOTIDINE 20 MG TAB PO SCH ×2 (07:45→20:20)
[2016-04-22] MEDS: LIDOCAINE 5% PATCH TOPICAL SCH (07:45)
[2016-04-22] MEDS: LISINOPRIL 10 MG TAB PO SCH (07:45)
[2016-04-22] MEDS: METOCLOPRAMIDE 5 MG/ML 2 ML VIAL IVP PRN ×2 (07:50→18:17)
--- NOTE | 2016-04-22 08:01 | XR ---
EXAMINATION TYPE: XR abdomen acute w cxr DATE OF EXAM: 04/22/2016 7:41 AM COMPARISON: Chest x-ray from acute abdominal series from one day earlier. CT abdomen and pelvis 2016 HISTORY: History of colon carcinoma presents with chest and abdominal pain and difficulty passing gas and stool. Recent fall injury. TECHNIQUE: Single view of the chest and 2 views of the abdomen are submitted. FINDINGS: Single view of the chest fails demonstrate chronic parenchymal change without suspicious focal airspa ce opacity, pleural effusion, or pneumothorax seen bilaterally. Cardiac silhouette size is stable an d upper limits of normal. Multiple old right-sided rib fractures as well as mid right clavicular frac ture are all redemonstrated. Abdominal x-ray shows gas dilated small bowel loops in the left midabdomen with several air-fluid lev els degree of gaseous distention is stable. Gas is seen in slightly prominent colonic loops. Surgical sutures right midabdomen are present. There is multilevel spurring in the spine. Scattered pelvic ph leboliths are seen. IMPRESSION: 1. No acute pulmonary process. 2. Persistent nonspecific bowel gas pattern, possible partial obstruction may still be present witho ut significant change since admission CT
[2016-04-22 08:59] LABS: Basophils % (A) 0 %; CH 32.2; CHCM 33.5; Eosinophils # (A) 0.3 k/uL (0-0.7); Eosinophils % (A) 3 %; HCT 41.1 % (39.0-53.0); HDW 2.64; HGB 13.4 gm/dL (13.0-17.5); Luc # (Auto) 0.33; Luc % (Auto) 3; Lymphocytes # (A) 1.5 k/uL (1.0-4.8); Lymphocytes % (A) 15 %; MCH 31.5 pg (25.0-35.0); MCHC 32.6 g/dL (31.0-37.0); MCV 96.6 fL (80.0-100.0); Mean Platelet Volume 6.5; Monocytes # (A) 1.2 k/uL (0-1.0); Monocytes % (A) 12 %; Neutrophils # (A) 6.3 k/uL (1.3-7.7); Neutrophils % (A) 66 %; RBC 4.26 m/uL (4.30-5.90); RDW 12.7 % (11.5-15.5); WBC 9.6 k/uL (3.8-10.6); WBC (Perox) 10.38
[2016-04-22 09:11] LABS: ALT 51 U/L (21-72); AST 40 U/L (17-59); Alkaline Phosphatase 73 U/L (38-126); Anion Gap 13 mmol/L; Blood Urea Nitrogen 19 mg/dL (9-20); Calcium 8.4 mg/dL (8.4-10.2); Carbon Dioxide 27 mmol/L (22-30); Chloride 96 mmol/L (98-107); Glucose 105 mg/dL (74-99); Non-African American GFR(MDRD) >60 (>60 ml/min/1.73 sqM); Potassium 3.6 mmol/L (3.5-5.1); Sodium 136 mmol/L (137-145); Total Bilirubin 1.1 mg/dL (0.2-1.3); Total Protein 6.8 g/dL (6.3-8.2)
--- NOTE | 2016-04-22 09:44 | P.PN ---
Subjective Principal diagnosis: Right arm numbness/weakness Patient is a pleasant 65-year-old male seen at bedside this morning. He has MRI cervical spine yesterday. He continues to have complaints of right arm numbness and weakness. He is right handed. He has no new complaints today and is otherwise feeling well. He denies having any difficulty with ambulating. He denies stumbling, tripping or falling. He denies balance problems. He denies loss of bowel or bladder control. Objective - Vital Signs Vital signs: Vital Signs Temp 98.2 F 04/22/16 07:00 Pulse 78 04/22/16 07:00 Resp 16 04/22/16 07:00 BP 156/76 04/22/16 07:00 Pulse Ox 95 04/22/16 07:00 Intake & Output 04/21/16 04/22/16 04/22/16 18:59 06:59 18:59 Intake Total 600 180 Balance 600 180 Intake: Oral 600 180 Other: Voiding Method Toilet # Voids 1 - Exam Inspection of the right shoulder/upper extremity reveals fracture bump the right clavicle. Range of motion of the right shoulder is not tested. He has difficulty exerting bicep flexion against gravity as well as with the triceps and wrist extensors. He's has 3/5 strength at finger extensors. 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 Sensation to touch is intact C5 through T1. There is no hyperreflexia. Negative Benja sign. There is 2+ radial pulse and less than 2 second cap refill. Left upper extremity has normal neurological function with sensation and strength. No hyperreflexia in the lower extremities. No clonus - Constitutional General appearance: Present: no acute distress - Psychiatric Psychiatric: Present: A&O x's 3, appropriate affect, intact judgment & insight - Labs CBC & Chem 7: 04/22/16 08:28 04/22/16 08:28 Labs: Abnormal Lab Results - Last 24 Hours (Table) 04/22/16 04/22/16 Range/Units 08:28 08:28 RBC 4.26 L (4.30-5.90) m/uL Monocytes # 1.2 H (0-1.0) k/uL Sodium 136 L (137-145) mmol/L Chloride 96 L (98-107) mmol/L Glucose 105 H (74-99) mg/dL - Imaging and Cardiology MRI of the cervical spine was obtained yesterday and is a suboptimal study with motion artifact. It does show there is significant degenerative disc disease and spondylosis throughout where it is worse at C5-6 and C6-7. There appears to be a disc osteophyte complex at C5-6 central to the right that is moderate to advanced. There appears to be a hemangioma in the body of C7. Also at the level of the thoracic 2 vertebrae there appears to be a collection of fluid or other type of lesion just lateral to the cord in the spinal canal that was reviewed with the radiologist. There doesn't appear to be any cord changes throughout study however studies are suboptimal. Assessment and Plan (1) Right clavicle fracture Narrative/Plan: I discussed the patient's findings with his primary care medical team and have recommended obtaining a neurology consult at this point to further workup his weakness from the biceps through his finger extensors. The findings on his MRI were consistent with a chronic nature however acute exacerbation could cause some of his physical exam findings. We'll await the findings with the neurologist and their recommendations Status: Acute (2) Right arm numbness Status: Acute Time with Patient: Less than 30
[2016-04-22] MEDS: ENOXAPARIN 40 MG/0.4 ML SYRINGE SQ SCH (12:14)
--- NOTE | 2016-04-22 12:31 | P.PN ---
Subjective A 65-year-old male being seen by surgical service this morning patient reports no further episodes of nausea vomiting patient continues to report right arm numbness and weakness persist. Patient states he needs to use his left hand to move the right hand. Patient states the symptoms have been unchanged. Patient currently is denying any chest pain or shortness of breath dizziness or lightheadedness. Patient does state that the abdominal discomfort has resolved Objective - Vital Signs Vital signs: Vital Signs Temp 98.2 F 04/22/16 07:00 Pulse 78 04/22/16 07:00 Resp 16 04/22/16 07:00 BP 156/76 04/22/16 07:00 Pulse Ox 95 04/22/16 07:00 Intake & Output 04/21/16 04/22/16 04/22/16 18:59 06:59 18:59 Intake Total 600 180 Balance 600 180 Intake: Oral 600 180 Other: Voiding Method Toilet # Voids 1 - Exam Physical exam 65year-old male resting in bed states abdominal pain resolved Lungs essentially clear with adequate air movement on room air Heart S1-S2 audible and regular denying chest pain Abdomen soft and not distended nontender active bowel tones no facial grimacing with palpitation to the abdominal wall states urinating no difficulty no frequent stooling and tolerating a diet Extremities continues to report having right arm discomfort limited mobility with limited range of motion with persistent inability to lift the right arm off the mattress without the use of the left - Labs CBC & Chem 7: 04/22/16 08:28 04/22/16 08:28 Labs: Abnormal Lab Results - Last 24 Hours (Table) 04/22/16 04/22/16 Range/Units 08:28 08:28 RBC 4.26 L (4.30-5.90) m/uL Monocytes # 1.2 H (0-1.0) k/uL Sodium 136 L (137-145) mmol/L Chloride 96 L (98-107) mmol/L Glucose 105 H (74-99) mg/dL Assessment and Plan Plan: Impression Suffered a fall last week resulting in a right clavicle fracture New onset right arm numbness History of colon cancer diagnosed in 1997 with the previous colectomy Fell from a standing position last week resulting in blunt trauma to the right side of the chest Present on admission upper abdominal pain with nausea vomiting suspect due to small bowel obstruction resolving Present on admission intractable hipcups resolved Multiple fractures of the ribs on the right side Plan Consult neurology to evaluate her right arm numbness Advance diet as tolerated Continue recommendations by pulmonology service Pain control DVT and GI prophylaxis From a surgical perspective there is no surgery indicated at this time with no further recommendations will see patient on an as-needed basis The above dictated assessment and findings were discussed with dr greta Rowe and the plan of care have been dictated as directed. Leonora Bennett nurse practitioner acting as a scribe for dr hernandes
--- NOTE | 2016-04-22 15:32 | P.CNNES ---
History of Present Illness Consult date: 04/22/16 Reason for Consult: Patient with right arm numbness and weakness. History of Present Illness: This patient is a 65-year-old right-handed white male who states that on 2016 he was at home and was out shoveling snow. He had slipped on some ice and fell onto his right side. He was brought into the emergency room at that time and was evaluated and was found to have evidence of rib fractures as well as a right clavicular fracture. He was seen by orthopedic surgery at the time and was recommended to use a sling for the right arm. He did not require any surgical intervention for the right clavicular fracture at the time. Patient states that during this evaluation in the ER he did complain of weakness in his right arm. He was discharged from the ER and apparently developed symptoms of nausea vomiting and abdominal pain. He returned to the emergency room on 2016 and was diagnosed with small bowel obstruction. He was seen by Dr. Gonzales from general surgery and showed improvement and resolution of the small bowel obstruction. Today he was being readied for discharge home when Dr. Gonzales found that he was still complaining of right arm weakness and numbness. Patient apparently was seen by orthopedic surgery yesterday and had a MRI of the cervical spine completed yesterday. This MRI was reviewed and did reveal evidence of degenerative changes of the cervical spine most pronounced at C5-C6 with a large disc protrusion noted on the MRI films. The patient today states his right arm is very weak and is unable to lift it above 45. He does remember falling on ice and hitting the back of his head at the time of the accident. He denies any previous neck injury or cervical spine surgery in the past. He did also sustained fractures of multiple ribs on his upper right side from this fall. Patient states he has numbness that radiates from the shoulder all the way to his fingertips. He is noted to have significant weakness and is unable to raise arm above his head. Due to his findings his discharge was placed on hold today. Neurology was consulted for further evaluation recommendations. Review of Systems Constitutional: Denies chills, Denies fever Eyes: denies blurred vision, denies pain Ears, nose, mouth and throat: Denies headache, Denies sore throat Cardiovascular: Denies chest pain, Denies shortness of breath Respiratory: Denies cough Gastrointestinal: Denies abdominal pain, Denies diarrhea, Denies nausea, Denies vomiting Musculoskeletal: Denies myalgias Integumentary: Denies pruritus, Denies rash Neurological: Reports motor disturbance, Reports paralysis, Reports paresthesias , Reports tingling, Denies numbness, Denies weakness Psychiatric: Denies anxiety, Denies depression Endocrine: Denies fatigue, Denies weight change Past Medical History Past Medical History: Cancer, Hearing Disorder / Deafness, Hypertension, Osteoarthritis (OA) Additional Past Medical History / Comment(s): Fall with right clavicular and right-sided fractures, colon cancer in 1997 with a previous colectomy, hypertension, hypertensive heart disease with concentric left ventricular hypertrophy, osteoarthritis, ALLERGIC rhinitis, impaired hearing, questionable meningioma History of Any Multi-Drug Resistant Organisms: None Reported Past Surgical History: Appendectomy Additional Past Surgical History / Comment(s): colon removed secondary to ca, only has semicolon, right cataract surgery, Past Anesthesia/Blood Transfusion Reactions: No Reported Reaction Past Psychological History: No Psychological Hx Reported Smoking Status: Former smoker Past Alcohol Use History: Occasional Past Drug Use History: None Reported - Past Family History Mother Family Medical History: Cancer (Mother at age of 90 from breast cancer, congestive heart failure, and renal cancer.) Father Family Medical History: CVA/TIA (Father at age of 81 from stroke.) Brother(s) Family Medical History: Cancer (Patient had 4 brothers 3 are alive and okay and one from pancreatic cancer per) Sister(s) Family Medical History: No Reported History (Patient had 2 sisters one is alive and okay the other one from neurofibroma and she ended up with MRSA through a pressure ulcer.) Son(s) Family Medical History: No Reported History (Patient has one son no major medical problems for) Medications and Allergies Home Medications Medication Instructions Recorded Confirmed Type Lisinopril 30 mg PO QAM 04/15/16 04/19/16 History Loratadine [Claritin] 10 mg PO QAM 04/15/16 04/19/16 History Hydrocodone/Acetaminophen [[place] 1 - 2 tab PO Q6HR PRN 04/19/16 04/19/16 History 5-325] Allergies Allergy/AdvReac Type Severity Reaction Status Date / Time No Known Allergies Allergy Verified 04/19/16 17:00 Physical Examination - Vital Signs Vital Signs: Vital Signs Temp Pulse Resp BP Pulse Ox 04/22/16 07:00 98.2 F 78 16 156/76 95 04/22/16 00:35 98.0 F 87 16 152/79 93 L 04/21/16 20:52 88 130/67 95 04/21/16 20:12 97.3 F L 91 17 161/80 93 L 04/21/16 14:41 97.8 F 88 17 162/82 95 Intake and Output 04/21/16 04/22/16 04/22/16 22:59 06:59 14:59 Intake Total 240 180 Balance 240 180 Intake: Oral 240 180 Other: Voiding Method Toilet # Voids 1 1 - Constitutional General appearance: average body habitus, cooperative - EENT EENT: mucous membranes moist - Respiratory Respiratory: lungs clear, normal breath sounds - Cardiovascular Cardiovascular: regular rate, normal S1, normal S2 Extremities: no peripheral edema bilaterally - Gastrointestinal Gastrointestinal: normoactive bowel sounds - Integumentary Integumentary: normal - Neurologic Cranial nerve examination: PERRL, EOMI, VFF, V1/V2/V3 grossly intact, face symmetric, tongue midline, intact gag reflex, intact corneal reflex, normal palatal elevation Speech examination: intact Sensorimotor examination: intact Motor examination - right side: 1/5: wrist flexion, wrist extension, 2/5: biceps , triceps, model photographers', 4/5: hip flexors, knee extensors, dorsiflexion, toe extension ( EHL), plantarflexion Motor examination - left side: 5/5: biceps, triceps, wrist flexion, wrist extension, model photographers', hip flexors, knee extensors, dorsiflexion, toe extension (EHL) , plantarflexion Detailed sensory examination: intact Reflex and gait examination: intact Reflexes: 1+: ankle, bicep, knee, tricep - Musculoskeletal Musculoskeletal: no pain - Psychiatric Psychiatric: mood/affect appropriate Results - Laboratory Findings CBC and BMP: 04/22/16 08:28 04/22/16 08:28 Abnormal Lab Findings: Abnormal Labs 04/20/16 04/21/16 04/21/16 06:32 06:14 06:14 RBC 4.12 L Hgb 12.9 L Lymphocytes # 0.8 L Monocytes # Sodium 136 L 134 L Chloride 96 L 96 L BUN 34 H 29 H Glucose 126 H 118 H Calcium 8.2 L 8.1 L Magnesium 2.6 H 04/22/16 04/22/16 08:28 08:28 RBC 4.26 L Hgb Lymphocytes # Monocytes # 1.2 H Sodium 136 L Chloride 96 L BUN Glucose 105 H Calcium Magnesium Assessment and Plan (1) Injury of right brachial plexus Status: Acute Code(s): S14.3XXA - INJURY OF BRACHIAL PLEXUS, INITIAL ENCOUNTER (2) Right clavicle fracture Status: Acute Code(s): S42.001A - FRACTURE OF UNSP PART OF RIGHT CLAVICLE, INIT FOR CLOS FX (3) Cervical spondylosis with radiculopathy Status: Acute Code(s): M47.22 - OTHER SPONDYLOSIS WITH RADICULOPATHY, CERVICAL REGION (4) Multiple fractures of ribs of right side Status: Acute Code(s): S22.41XA - MULTIPLE FRACTURES OF RIBS, RIGHT SIDE, INIT FOR CLOS FX Plan: This patient is a 65-year-old right-handed white male who was admitted to the hospital on 04/19/2016 for small bowel obstruction. He was being readied for discharge home today when he was found to have weakness and numbness in his right arm. Apparently this had been present even after he sustained a fall on ice pack on 04/15/2016. Neurology was consult to today for further evaluation. His neurological examination suggest possibility of right brachial plexus injury. Review of his MRI of the cervical spine also reveals a significant disc herniation at C5-C6 likely contributing to right arm weakness. We have recommended the patient to have an MRI of the right brachial plexus as well as a consultation with orthopedic spine surgery and Dr. Monroy. Patient's discharges been placed on hold at this time. Case was discussed with Dr. Gonzales and he agrees with our current treatment plan. We will await the results of his MRI and further recommendations from orthopedic spine surgery. His overall prognosis at this time remains very guarded. Case was also discussed today with Dr. Palomo in detail. She is aware of our findings and recommendations. His overall prognosis at this time remains guarded. Time with Patient: Greater than 30
--- NOTE | 2016-04-22 16:29 | P.PN ---
Subjective This is a very pleasant 65-year-old male patient who slipped on ice and fell sustaining a blunt trauma to his right chest area. Initially presented emergency department few days back where he was further investigated and he was found to have a clavicular fracture on the right in addition to multilevel rib fractures on the right. This injury occurred on 04/15/2016 as the patient was shoveling when he slept and fell on the right side of his body. CAT scan of the head and neck revealed no acute fracture or dislocation of the cervical spine. There was no evidence of any intracranial hemorrhage or bleeding. There was evidence of soft tissue edema on the lateral margin of the subcutaneous tissue on the right neck at the level of the thyroid gland. There was evidence of a large interhemispheric fissure will dural calcification or calcified meningioma with no significant mass effect. This was seen on the CAT scan of the head. X-ray of the shoulder showed mild displaced clavicular fracture that was comminuted. The patient was observed for 24-48 hours here in the hospital he was discharged home on [place]. He was maintaining his oxygenation well above 90%. His pain was good control in the time where the discharge. Subsequently, the patient was taken [place] for pain control and he developed small bowel obstruction. He came into the hospital 04/19/2016 because of increased abdominal distention, nausea, and vomiting. He had received an earlier enema without much of an improvement. CAT scan of the abdomen was done in the emergency department showed small bowel obstruction and general surgery consultation was obtained. The patient is seen again today 04/22/2016 in follow-up. He is on the surgical floor. He is awake and alert in no acute distress. He has had ongoing issues of right upper extremity numbness and weakness. His small bowel obstruction resolved with conservative intervention or minus NG tube has since been removed. He is tolerating his diet. Surgical services are signing off the case. Neurology has been consulted regarding the right upper extremity weakness. He has not had any pulmonary complaints. No worsening shortness of breath, cough or congestion. Maintaining good O2 saturations in the 90s on room air. Afebrile. Objective - Vital Signs Vital signs: Vital Signs Temp 98.3 F 04/22/16 14:22 Pulse 79 04/22/16 14:22 Resp 16 04/22/16 14:22 BP 152/64 04/22/16 14:22 Pulse Ox 92 L 04/22/16 14:22 Intake & Output 04/21/16 04/22/16 04/22/16 18:59 06:59 18:59 Intake Total 600 180 Balance 600 180 Intake: Oral 600 180 Other: Voiding Method Toilet # Voids 1 - Exam GENERAL EXAM: Alert, fairly comfortable in no apparent distress. HEAD: Normocephalic. EYES: Normal reaction of pupils, equal size. NOSE: Clear with pink turbinates. THROAT: No erythema or exudates. NECK: No masses, no JVD. CHEST: No chest wall deformity. Ecchymosis over the right clavicle. LUNGS: Equal air entry with no crackles, wheeze, rhonchi or dullness. CVS: S1 and S2 normal with no audible mumurs, regular rhythm. ABDOMEN: No hepatosplenomegaly, normal bowel sounds, no guarding or rigidity. SPINE: No scoliosis or deformity SKIN: No rashes CENTRAL NERVOUS SYSTEM: No focal deficits, tone is normal in all 4 extremities. Extremities: There is no significant peripheral edema. No clubbing, no cyanosis. Peripheral pulses are intact. The patient has some right upper extremity weakness. - Labs CBC & Chem 7: 04/22/16 08:28 04/22/16 08:28 Labs: Abnormal Lab Results - Last 24 Hours (Table) 04/22/16 04/22/16 Range/Units 08:28 08:28 RBC 4.26 L (4.30-5.90) m/uL Monocytes # 1.2 H (0-1.0) k/uL Sodium 136 L (137-145) mmol/L Chloride 96 L (98-107) mmol/L Glucose 105 H (74-99) mg/dL Assessment and Plan Plan: Impression: #1 Right-sided rib fractures, traumatic in nature. #2 Musculoskeletal chest wall pain currently well controlled. 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 #4 Small bowel obstruction related to narcotic use from previous trauma and possibly secondary to small bowel adhesions from previous abdominal surgery. Recovered, tolerating a diet. #5 History of colon cancer and previous hemicolectomy. #6 Hypertension with hypertensive heart disease. #6 CRITICAL CARE TRANSPORT NURSE meningioma. #7 Osteoarthritis. Plan: The patient was seen and evaluated by Dr. Abreu. He is stable from the pulmonary standpoint. Neurology is on the case and is recommending an MRI of the right brachial plexus. The patient is noted to have a significant disc herniation at C5-6 which also could be contributing to the right arm weakness. He is consulting a orthopedics in this regard. We will increase his activity as tolerated. He is again encouraged regarding the increased use of the incentive spirometer and cough and deep breathing exercises. We'll continue to follow make further recommendations based on his clinical status.
[2016-04-22] MEDS: methylPREDNISolone SOD SUCCI 125 MG/2 ML VIAL IV SCH ×2 (18:17→23:21)
[2016-04-23] MEDS: methylPREDNISolone SOD SUCCI 125 MG/2 ML VIAL IV SCH ×4 (05:38→23:22)
[2016-04-23] MEDS: FAMOTIDINE 20 MG TAB PO SCH ×2 (07:40→21:44)
[2016-04-23] MEDS: LIDOCAINE 5% PATCH TOPICAL SCH (07:40)
[2016-04-23] MEDS: LISINOPRIL 10 MG TAB PO SCH (07:40)
[2016-04-23 08:00] LABS: Glucose,Whole Blood 130 mg/dL (75-99)
[2016-04-23 08:08] LABS: ALT 52 U/L (21-72); AST 33 U/L (17-59); Alkaline Phosphatase 72 U/L (38-126); Anion Gap 13 mmol/L; Blood Urea Nitrogen 18 mg/dL (9-20); Carbon Dioxide 23 mmol/L (22-30); Chloride 100 mmol/L (98-107); Glucose 138 mg/dL (74-99); Non-African American GFR(MDRD) >60 (>60 ml/min/1.73 sqM); Potassium 3.9 mmol/L (3.5-5.1); Sodium 136 mmol/L (137-145); Total Bilirubin 0.7 mg/dL (0.2-1.3); Total Protein 6.4 g/dL (6.3-8.2)
[2016-04-23 08:28] LABS: Basophils % (A) 0 %; CH 32.3; CHCM 34.2; Eosinophils % (A) 0 %; HCT 39.2 % (39.0-53.0); HDW 2.71; HGB 13.1 gm/dL (13.0-17.5); Luc # (Auto) 0.06; Luc % (Auto) 1; Lymphocytes # (A) 0.6 k/uL (1.0-4.8); Lymphocytes % (A) 7 %; MCH 31.5 pg (25.0-35.0); MCHC 33.3 g/dL (31.0-37.0); MCV 94.6 fL (80.0-100.0); Mean Platelet Volume 6.9; Monocytes # (A) 0.3 k/uL (0-1.0); Monocytes % (A) 4 %; Neutrophils # (A) 7.2 k/uL (1.3-7.7); Neutrophils % (A) 88 %; RBC 4.15 m/uL (4.30-5.90); RDW 12.7 % (11.5-15.5); WBC 8.2 k/uL (3.8-10.6); WBC (Perox) 8.82
[2016-04-23] MEDS: INSULIN LISPRO (humaLOG) 300 UNIT/3 ML VIAL SQ SCH ×4 (09:59→21:44)
--- NOTE | 2016-04-23 10:04 | P.PN ---
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 with a previous medical history significant for hypertension and hypertensive cardiovascular disease with left ventricular hypertrophy, Osteoarthritis, history of colon cancer that was diagnosed back in 1997 post hemicolectomy, history of ALLERGIC rhinitis, hearing disorder, patient is quite active and run at least 9 miles a daily basis on his elliptical machine at home, he was working outside few days ago shoveling snow and suddenly he slipped on ice and he landed on his back first hit his head that he hit his right shoulder and back patient developed to have a significant pain in the right side of his chest as well as right shoulder he was brought into the emergency department at [facility] when he had numerous x-rays and his computed tomography scan of the brain , he was diagnosed with the collarbone fracture as well as rib fractures on the right side and he was placed on pain management and side effect is been getting stool softener as well as incentive spirometer patient ended up be calming more bloated with increased bowel pain history with nausea and vomiting he came to the emergency department yesterday at around 11:00 and he left at around 3:00 after he did receive an enema 2 with minimal results however he will came back in the morning because of increased abdominal pain and distention associated with nausea and vomiting he had a computed tomography scan of the abdomen and pelvis this time and that showed small bowel obstruction, he was admitted under Dr. Gonzales and we were asked to see him for medical management. Patient had an NG tube placed and he was admitted to the surgical floor. He was placed on IV fluid . 2/5: Patient is sitting up in bed is feeling a lot better today he did have multiple bowel movements that appears to be loose, he had repeated x-ray that showed air-fluid levels however the patient appears to be a lot better with less than 200 mL in the canister from his NG tube. We'll clamp the NG tube along the patient walk around and if the patient continued to be distended and he has to stay for another 24 hours . 2/6: Patient has been evaluated by orthopedics for right arm numbness since his fall with rib fractures and right clavicle fracture. He also has loss of range of motion and inability to lift the right arm. MRI of the cervical spine has been ordered. Patient has had stools and passing gas. He denies any abdominal pain. Anticipate discharge later today after MRI. 04/22: Cervical MRI shows a suboptimal study due to artifact gradation there is multilevel degenerative changes in the cervical spine most pronounced spinal canal effacement or stenosis noted at C5/C6. There is a 5 mm oval well circumscribed low intense lesion at T2 vertebral body level on sagittal image for appears probable extra medullary intradural. This can be further investigated with dedicated thoracic spine MRI. Orthopedics has recommended neurology consult. Abdominal x-rays this morning revealed nonspecific bowel gas pattern. Possible partial obstruction may still be persistent with no significant change since admission CAT scan. Chest x-ray shows no acute pulmonary process. Dr. Gonzales has transferred care over to medicine. Objective - Vital Signs Vital signs: Vital Signs Temp 98.2 F 04/22/16 07:00 Pulse 78 04/22/16 07:00 Resp 16 04/22/16 07:00 BP 156/76 04/22/16 07:00 Pulse Ox 95 04/22/16 07:00 Intake & Output 04/21/16 04/22/16 04/22/16 18:59 06:59 18:59 Intake Total 600 180 Balance 600 180 Intake: Oral 600 180 Other: Voiding Method Toilet # Voids 1 - Exam General appearance: average body habitus, mild distress - EENT Eyes: anicteric sclerae, PERRLA, no ptosis, no scleral icterus, normal appearance (NG tube in place.) ENT: hard of hearing, normal oropharynx, no thrush Ears: bilateral: normal - Neck Neck: no lymphadenopathy, normal ROM, no rigidity, no stridor, no thyromegaly Carotids: bilateral: upstroke normal Thyroid: bilateral: normal size - Respiratory Respiratory: bilateral: diminished, negative: dullness, rales, rhonchi, wheezing , prolonged expiration, prolonged inspiration - Cardiovascular Rhythm: regular Heart sounds: normal: S1, S2 Abnormal Heart Sounds: no systolic murmur, no S3 Gallop, no S4 Gallop - Gastrointestinal General gastrointestinal: Normal bowel sounds, soft, nontenderness, no umbilical hernia, no ventral hernia - Integumentary Integumentary: normal, normal turgor - Neurologic Neurologic: CNII-XII intact - Musculoskeletal Musculoskeletal: strength equal bilaterally - Psychiatric Psychiatric: A&O x's 3, appropriate affect, intact judgment & insight - Labs CBC & Chem 7: 04/23/16 07:22 04/23/16 07:22 Labs: Abnormal Lab Results - Last 24 Hours (Table) 04/22/16 04/22/16 Range/Units 08:28 08:28 RBC 4.26 L (4.30-5.90) m/uL Monocytes # 1.2 H (0-1.0) k/uL Sodium 136 L (137-145) mmol/L Chloride 96 L (98-107) mmol/L Glucose 105 H (74-99) mg/dL Assessment and Plan Plan: 1. Acute small bowel obstruction. Resolved. 2. Recent right posterior rib fractures and right fibular fracture. Continue since parameter to reduce the incidence of atelectasis and hospital-acquired pneumonia. 3. Hyponatremia with minimal prerenal azotemia. 4. Hypertension and hypertensive cardio vascular disease. Substituted lisinopril Vasotec 1.25 mg IV push every 6 hours as needed for systolic blood pressure greater than or equal to 1 50 mmHg. 5. History of carcinoid tumor status post right hemicolectomy. Currently in remission 6. DVT prophylaxis. Lovenox 40 mg subcutaneously every 24 hours. 7. GI prophylaxis. Protonix 40 mg IV push every 24 hours. 8. Numbness to the right arm with decreased range of motion after recent rib fractures and right clavicle fracture. Orthopedic consult. Stat MRI of the cervical spine as above. Neurology consult in progress.. Discharge plan: Home Impression and plan of care have been directed as dictated by the signing physician. Shanelle Connolly nurse practitioner acting as scribe for signing physician. Time with Patient: Greater than 30
[2016-04-23] MEDS: ENOXAPARIN 40 MG/0.4 ML SYRINGE SQ SCH (11:29)
[2016-04-23 12:03] LABS: Glucose,Whole Blood 144 mg/dL (75-99)
--- NOTE | 2016-04-23 15:07 | P.PN ---
Subjective This is a very pleasant 65-year-old male patient who slipped on ice and fell sustaining a blunt trauma to his right chest area. Initially presented emergency department few days back where he was further investigated and he was found to have a clavicular fracture on the right in addition to multilevel rib fractures on the right. This injury occurred on 04/15/2016 as the patient was shoveling when he slept and fell on the right side of his body. CAT scan of the head and neck revealed no acute fracture or dislocation of the cervical spine. There was no evidence of any intracranial hemorrhage or bleeding. There was evidence of soft tissue edema on the lateral margin of the subcutaneous tissue on the right neck at the level of the thyroid gland. There was evidence of a large interhemispheric fissure will dural calcification or calcified meningioma with no significant mass effect. This was seen on the CAT scan of the head. X-ray of the shoulder showed mild displaced clavicular fracture that was comminuted. The patient was observed for 24-48 hours here in the hospital he was discharged home on [place]. He was maintaining his oxygenation well above 90%. His pain was good control in the time where the discharge. Subsequently, the patient was taken [place] for pain control and he developed small bowel obstruction. He came into the hospital 04/19/2016 because of increased abdominal distention, nausea, and vomiting. He had received an earlier enema without much of an improvement. CAT scan of the abdomen was done in the emergency department showed small bowel obstruction and general surgery consultation was obtained. The patient is seen again today 04/23/2016 in follow-up. He is awake and alert in no acute distress. He is sitting up in the chair at the bedside. His appetite is good. He has no pulmonary complaints. He is maintaining good O2 saturations in the mid 90s on room air. He continues to work well with the incentive spirometer. The right chest discomfort is subsiding from the rib fractures. He is however needing to undergo cervical intervention in regards to his right shoulder and right arm weakness secondary to the suspected right brachial plexus and significant disc herniation at C5-6. The plan is for MRI today. Objective - Vital Signs Vital signs: Vital Signs Temp 99.5 F 04/23/16 07:43 Pulse 82 04/23/16 07:43 Resp 16 04/23/16 07:43 BP 145/76 04/23/16 07:43 Pulse Ox 95 02/08/17 07:43 Intake & Output 04/22/16 04/23/16 04/23/16 18:59 06:59 18:59 Intake Total 180 1560 120 Balance 180 1560 120 Weight 90.718 kg Intake: Oral 180 1560 120 Other: Voiding Method Toilet # Voids 1 2 3 - Exam GENERAL EXAM: Alert, fairly comfortable in no apparent distress. HEAD: Normocephalic. EYES: Normal reaction of pupils, equal size. NOSE: Clear with pink turbinates. THROAT: No erythema or exudates. NECK: No masses, no JVD. CHEST: No chest wall deformity. Ecchymosis over the right clavicle. LUNGS: Equal air entry with no crackles, wheeze, rhonchi or dullness. CVS: S1 and S2 normal with no audible mumurs, regular rhythm. ABDOMEN: No hepatosplenomegaly, normal bowel sounds, no guarding or rigidity. SPINE: No scoliosis or deformity SKIN: No rashes CENTRAL NERVOUS SYSTEM: No focal deficits, tone is normal in all 4 extremities. Extremities: There is no significant peripheral edema. No clubbing, no cyanosis. Peripheral pulses are intact. The patient has some right upper extremity weakness. - Labs CBC & Chem 7: 04/23/16 07:22 04/23/16 07:22 Labs: Abnormal Lab Results - Last 24 Hours (Table) 04/23/16 04/23/16 04/23/16 Range/Units 07:22 07:22 07:46 RBC 4.15 L (4.30-5.90) m/uL Lymphocytes # 0.6 L (1.0-4.8) k/uL Sodium 136 L (137-145) mmol/L Creatinine 0.60 L (0.66-1.25) mg/dL Glucose 138 H (74-99) mg/dL POC Glucose (mg/dL) 130 H (75-99) mg/dL Calcium 8.0 L (8.4-10.2) mg/dL Albumin 3.4 L (3.5-5.0) g/dL 04/23/16 Range/Units 11:38 RBC (4.30-5.90) m/uL Lymphocytes # (1.0-4.8) k/uL Sodium (137-145) mmol/L Creatinine (0.66-1.25) mg/dL Glucose (74-99) mg/dL POC Glucose (mg/dL) 144 H (75-99) mg/dL Calcium (8.4-10.2) mg/dL Albumin (3.5-5.0) g/dL Assessment and Plan Plan: Impression: #1 Right-sided rib fractures, traumatic in nature. #2 Musculoskeletal chest wall pain currently well controlled. 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 #4 Small bowel obstruction related to narcotic use from previous trauma and possibly secondary to small bowel adhesions from previous abdominal surgery. Recovered, tolerating a diet. #5 History of colon cancer and previous hemicolectomy. #6 Hypertension with hypertensive heart disease. 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 #7 Osteoarthritis. Plan: The patient was seen and evaluated by Dr. Abreu. He is stable from the pulmonary standpoint. An MRI of the suspected right brachial plexus is scheduled for today. The patient is noted to have a significant disc herniation at C5-6 which also could be contributing to the right arm weakness. Dr. Monroy is planning for possible surgery in the a.m. We will increase his activity as tolerated. He is again encouraged regarding the increased use of the incentive spirometer and cough and deep breathing exercises. We'll continue to follow make further recommendations based on his clinical status.
--- NOTE | 2016-04-23 15:20 | P.PN ---
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 with a previous medical history significant for hypertension and hypertensive cardiovascular disease with left ventricular hypertrophy, Osteoarthritis, history of colon cancer that was diagnosed back in 1997 post hemicolectomy, history of ALLERGIC rhinitis, hearing disorder, patient is quite active and run at least 9 miles a daily basis on his elliptical machine at home, he was working outside few days ago shoveling snow and suddenly he slipped on ice and he landed on his back first hit his head that he hit his right shoulder and back patient developed to have a significant pain in the right side of his chest as well as right shoulder he was brought into the emergency department at [facility] when he had numerous x-rays and his computed tomography scan of the brain , he was diagnosed with the collarbone fracture as well as rib fractures on the right side and he was placed on pain management and side effect is been getting stool softener as well as incentive spirometer patient ended up be calming more bloated with increased bowel pain history with nausea and vomiting he came to the emergency department yesterday at around 11:00 and he left at around 3:00 after he did receive an enema 2 with minimal results however he will came back in the morning because of increased abdominal pain and distention associated with nausea and vomiting he had a computed tomography scan of the abdomen and pelvis this time and that showed small bowel obstruction, he was admitted under Dr. Gonzales and we were asked to see him for medical management. Patient had an NG tube placed and he was admitted to the surgical floor. He was placed on IV fluid . 2/5: Patient is sitting up in bed is feeling a lot better today he did have multiple bowel movements that appears to be loose, he had repeated x-ray that showed air-fluid levels however the patient appears to be a lot better with less than 200 mL in the canister from his NG tube. We'll clamp the NG tube along the patient walk around and if the patient continued to be distended and he has to stay for another 24 hours . 2/6: Patient has been evaluated by orthopedics for right arm numbness since his fall with rib fractures and right clavicle fracture. He also has loss of range of motion and inability to lift the right arm. MRI of the cervical spine has been ordered. Patient has had stools and passing gas. He denies any abdominal pain. Anticipate discharge later today after MRI. 04/22: Cervical MRI shows a suboptimal study due to artifact gradation there is multilevel degenerative changes in the cervical spine most pronounced spinal canal effacement or stenosis noted at C5/C6. There is a 5 mm oval well circumscribed low intense lesion at T2 vertebral body level on sagittal image for appears probable extra medullary intradural. This can be further investigated with dedicated thoracic spine MRI. Orthopedics has recommended neurology consult. Abdominal x-rays this morning revealed nonspecific bowel gas pattern. Possible partial obstruction may still be persistent with no significant change since admission CAT scan. Chest x-ray shows no acute pulmonary process. Dr. Gonzales has transferred care over to medicine. 04/23: Patient has been evaluated by Dr. Harris and his review of the MRI of the cervical spine reveals a significant disc herniation at C5-C6 likely contributing to right arm weakness. He has recommended the patient to have an MRI of the right brachial plexus as well as a consultation with orthopedic spine surgery, Dr. Monroy. Dr. Monroy is planning for surgery in the morning. He does have some minimal improvement of the weakness in the right arm after steroids were started yesterday. He denies any cough or fever. He does have occasional hiccups continuing. Lovenox will be discontinued. Anticipate patient will be ready for discharge on Thursday. Objective - Vital Signs Vital signs: Vital Signs Temp 99.5 F 04/23/16 07:43 Pulse 82 04/23/16 07:43 Resp 16 04/23/16 07:43 BP 145/76 04/23/16 07:43 Pulse Ox 95 04/23/16 07:43 Intake & Output 04/22/16 04/23/16 04/23/16 18:59 06:59 18:59 Intake Total 180 1560 Balance 180 1560 Weight 90.718 kg Intake: Oral 180 1560 Other: Voiding Method Toilet # Voids 1 2 - Exam General appearance: average body habitus, mild distress - EENT Eyes: anicteric sclerae, PERRLA, no ptosis, no scleral icterus, normal appearance (NG tube in place.) ENT: hard of hearing, normal oropharynx, no thrush Ears: bilateral: normal - Neck Neck: no lymphadenopathy, normal ROM, no rigidity, no stridor, no thyromegaly Carotids: bilateral: upstroke normal Thyroid: bilateral: normal size - Respiratory Respiratory: bilateral: diminished, negative: dullness, rales, rhonchi, wheezing , prolonged expiration, prolonged inspiration - Cardiovascular Rhythm: regular Heart sounds: normal: S1, S2 Abnormal Heart Sounds: no systolic murmur, no S3 Gallop, no S4 Gallop - Gastrointestinal General gastrointestinal: Normal bowel sounds, soft, nontenderness, no umbilical hernia, no ventral hernia - Integumentary Integumentary: normal, normal turgor - Neurologic Neurologic: CNII-XII intact - Musculoskeletal Musculoskeletal: strength equal bilaterally - Psychiatric Psychiatric: A&O x's 3, appropriate affect, intact judgment & insight - Labs CBC & Chem 7: 04/23/16 07:22 04/23/16 07:22 Labs: Abnormal Lab Results - Last 24 Hours (Table) 04/23/16 04/23/16 04/23/16 Range/Units 07:22 07:22 07:46 RBC 4.15 L (4.30-5.90) m/uL Lymphocytes # 0.6 L (1.0-4.8) k/uL Sodium 136 L (137-145) mmol/L Creatinine 0.60 L (0.66-1.25) mg/dL Glucose 138 H (74-99) mg/dL POC Glucose (mg/dL) 130 H (75-99) mg/dL Calcium 8.0 L (8.4-10.2) mg/dL Albumin 3.4 L (3.5-5.0) g/dL Assessment and Plan Plan: 1. Acute small bowel obstruction due to narcotic pain medication. Resolved. 2. Recent right posterior rib fractures and right fibular fracture. Continue since parameter to reduce the incidence of atelectasis and hospital-acquired pneumonia. 3. Hyponatremia with minimal prerenal azotemia. 4. Hypertension and hypertensive cardio vascular disease. Substituted lisinopril Vasotec 1.25 mg IV push every 6 hours as needed for systolic blood pressure greater than or equal to 1 50 mmHg. 5. History of carcinoid tumor status post right hemicolectomy. Currently in remission 6. DVT prophylaxis. Lovenox 40 mg subcutaneously every 24 hours. 7. GI prophylaxis. Protonix 40 mg IV push every 24 hours. 8. Disc herniation at C5-C6 causing numbness to the right arm with decreased range of motion after recent rib fractures and right clavicle fracture. Orthopedic consult. Neurology consult. Dr. Monroy is planning for surgery tomorrow morning. Discharge plan: Home on Thursday Impression and plan of care have been directed as dictated by the signing physician. Shanelle Connolly nurse practitioner acting as scribe for signing physician. Time with Patient: Greater than 30
--- NOTE | 2016-04-23 16:39 | P.CNOR ---
History of Present Illness - [facility] Consult date: 04/23/16 Consult reason: other (Right upper extremity weakness status post fall) History of present illness: Patient has very pleasant 65-year-old gentleman who was seen and examined today at bedside. With 2 Separate Occasions Today at Night Quite a Bit of Time with Him and Was Able to Discuss His Issues with Him and His at Bedside. Apparently Patient Had a Fall on April 19 from Standing Position While He Was Shoveling Some Snow. He Fell onto His Head and Then His Body Came down. He Had Acute Pain in His Shoulder and Numbness of His Arm and Presented to the Emergency Room. His Found Have a Displaced Clavicle Fracture As Well As Multiple Rib Fractures. He Was Evaluated and Still Found Have Motion at His Right Upper Extremity at That Point Was Having Numbness. He Was Discharged Home with Conservative Treatment for His Right Clavicle and Ribs, but Continued Have Some Issues and Was Having Some Issues with His Bowels As Well. He Returned to the Hospital Yesterday and and was evaluated. He was suspected have a possible small bowel obstruction which has been worked up and is now resolved. He was seen by neurology and has had further workup in terms of his neck and right upper extremity which continues have significant weakness. He is having weakness over the entirety of his right upper extremity. He denies weakness at his lower extremities or his left upper extremity is. He is not having specific neck pain. He denies any fevers chills. He was started on IV steroids with neurology which is giving him some improvement with his upper extremity function in his hand. Review of Systems Denies blurry vision. Denies changes in speech. Denies chest pain shortness of breath. Denies any weakness in his left upper extremity. Denies any changes in his lower extremities. He is able to void and have bowel movements now. Before his fall he did not have any problems with his right upper extremity. He had full active and passive range of motion was very active with regular workouts. Past Medical History Past Medical History: Cancer, Hearing Disorder / Deafness, Hypertension, Osteoarthritis (OA) Additional Past Medical History / Comment(s): Fall with right clavicular and right-sided fractures, colon cancer in 1997 with a previous colectomy, hypertension, hypertensive heart disease with concentric left ventricular hypertrophy, osteoarthritis, ALLERGIC rhinitis, impaired hearing, questionable meningioma History of Any Multi-Drug Resistant Organisms: None Reported Past Surgical History: Appendectomy Additional Past Surgical History / Comment(s): colon removed secondary to ca, only has semicolon, right cataract surgery, Past Anesthesia/Blood Transfusion Reactions: No Reported Reaction Past Psychological History: No Psychological Hx Reported Smoking Status: Former smoker Past Alcohol Use History: Occasional Past Drug Use History: None Reported - Past Family History Mother Family Medical History: Cancer (Mother at age of 90 from breast cancer, congestive heart failure, and renal cancer.) Father Family Medical History: CVA/TIA (Father at age of 81 from stroke.) Brother(s) Family Medical History: Cancer (Patient had 4 brothers 3 are alive and okay and one from pancreatic cancer per) Sister(s) Family Medical History: No Reported History (Patient had 2 sisters one is alive and okay the other one from neurofibroma and she ended up with MRSA through a pressure ulcer.) Son(s) Family Medical History: No Reported History (Patient has one son no major medical problems for) Medications and Allergies Home Medications Medication Instructions Recorded Confirmed Type Lisinopril 30 mg PO QAM 04/15/16 04/19/16 History Loratadine [Claritin] 10 mg PO QAM 04/15/16 04/19/16 History Hydrocodone/Acetaminophen [[place] 1 - 2 tab PO Q6HR PRN 04/19/16 04/19/16 History 5-325] Allergies Allergy/AdvReac Type Severity Reaction Status Date / Time No Known Allergies Allergy Verified 04/19/16 17:00 Physical Examination Osteopathic Statement: *. No significant issues noted on an osteopathic structural exam other than those noted in the History and Physical/Consult. - C Spine: dermatomal strength & reflexes right Shoulder strength: flexion: 2/5 Shoulder strength: extension: 2/5 Shoulder strength: adduction: 2/5 Wrist strength: flexion: 2/5 Wrist strength: extension: 2/5 Wrist strength: pronation: 2/5 Wrist strength: supination: 2/5 Wrist strength: radial deviation: 2/5 Strength: potato chip sorter: 2/5 (The patient's neck he is not having tenderness to palpation. He has good range of motion through his neck without any exacerbation of his symptoms. He is able to extend his neck without increase in symptoms. At his right shoulder he has significant ecchymosis and swelling over his right clavicle. He has palpable displaced clavicle fracture. There is swelling over his shoulder and over his right biceps and triceps forearm and wrist and hand. His pulses are intact equally bilaterally. His sensation is intact over his entirety of his right arm though it is slightly diminished globally. He is able to move his hands and fingers and has about 3 minus out of 5 strength with his potato chip sorter 2+ out of 5 interosseous strength 2 out of 5 dorsiflexion of his wrist to out of 5 biceps and triceps and 2+ out of 5 volar flexion at his wrist and hand. He does not have any hyperreflexia. He does not have a positive Benja's. His Benja's is negative. There is no hyperreflexia in his upper extremities or lower extremities.) Reflexes: biceps: grade 1, brachial radialis: grade 1, triceps: grade 1 Results - Labs Labs: Abnormal Lab Results - Last 24 Hours (Table) 04/23/16 04/23/16 04/23/16 Range/Units 07:22 07:22 07:46 RBC 4.15 L (4.30-5.90) m/uL Lymphocytes # 0.6 L (1.0-4.8) k/uL Sodium 136 L (137-145) mmol/L Creatinine 0.60 L (0.66-1.25) mg/dL Glucose 138 H (74-99) mg/dL POC Glucose (mg/dL) 130 H (75-99) mg/dL Calcium 8.0 L (8.4-10.2) mg/dL Albumin 3.4 L (3.5-5.0) g/dL 04/23/16 Range/Units 11:38 RBC (4.30-5.90) m/uL Lymphocytes # (1.0-4.8) k/uL Sodium (137-145) mmol/L Creatinine (0.66-1.25) mg/dL Glucose (74-99) mg/dL POC Glucose (mg/dL) 144 H (75-99) mg/dL Calcium (8.4-10.2) mg/dL Albumin (3.5-5.0) g/dL H & H 04/20/16 04/21/16 04/22/16 Range/Units 06:32 06:14 08:28 Hgb 13.7 12.9 L 13.4 (13.0-17.5) gm/dL Hct 41.1 39.4 41.1 (39.0-53.0) % 04/23/16 Range/Units 07:22 Hgb 13.1 (13.0-17.5) gm/dL Hct 39.2 (39.0-53.0) % Result Diagrams: 04/23/16 07:22 04/23/16 07:22 - Diagnostic results Cervical MRI with contrast: report reviewed, image reviewed (Cervical MRI done yesterday is reviewed. I reviewed the report as well as the images. There is significant disc changes at C5 6 and C6 7. There is disc protrusion centrally at C5 6 with stenosis at C5 6 and C6 7. There is no acute fracture. There is no dislocation. 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 Harris with neurology. I agree with him that the presentation seems to be primarily that of a brachial plexus injury. The patient has significant weakness at his upper extremity but is not having signs of the or central cord syndrome. He does not have hyperreflexia or spastic changes at his upper extremities to indicate acute cord syndrome or myelopathy. Nonetheless he does have significant stenosis at C5 6 and C6 7 which may be contributing to his issues. He is making some progress in terms of his function in his hand with the steroid medication. Many of his symptoms seem to be related to a brachial plexus injury and he is scheduled to undergo and MRI of his brachial plexus later this evening. I think that is appropriate. If there is some hematoma or swelling around the brachial plexus then I think that we should continue to treat this as a brachial plexus injury and manage him conservatively with steroid medications and expected management. If there were to be a laceration over the brachial plexus, though this would be quite unlikely, then we would have to consider transfer to a tertiary facility. It seems most likely that he will have a neurapraxia type injury over his brachial plexus which should resolve with expectant care which has been initiated with neurology appropriately. We will await further testing of the brachial plexus with an MRI image. We will go ahead and make him nothing by mouth after midnight as we can consider surgical intervention at his cervical spine if his condition diminishes rather than continues to improve. We will discuss this further with him after the MRI results of his brachial plexus are available. For now he should continue his IV steroid medication and medical management Time with Patient: Greater than 30
[2016-04-23 16:55] LABS: Glucose,Whole Blood 143 mg/dL (75-99)
--- NOTE | 2016-04-23 17:17 | P.PN ---
Subjective Principal diagnosis: Small bowel obstruction Patient is a 65-year-old male who presented with small bowel obstruction. Previous history of multiple abdominal surgeries. .He is having regular bowel movments and no nausea or vomiting.He continues to have right arm. Objective - Vital Signs Vital signs: Vital Signs Temp 97.4 F L 04/23/16 15:00 Pulse 88 04/23/16 15:00 Resp 18 04/23/16 15:00 BP 140/80 04/23/16 15:00 Pulse Ox 96 04/23/16 15:00 Intake & Output 04/22/16 04/23/16 04/23/16 18:59 06:59 18:59 Intake Total 180 1560 120 Balance 180 1560 120 Weight 90.718 kg Intake: Oral 180 1560 120 Other: Voiding Method Toilet # Voids 1 2 3 - EENT Eyes: Present: PERRLA - Gastrointestinal General gastrointestinal: Present: soft. Absent: tenderness - Labs CBC & Chem 7: 04/23/16 07:22 04/23/16 07:22 Labs: Abnormal Lab Results - Last 24 Hours (Table) 04/23/16 04/23/16 04/23/16 Range/Units 07:22 07:22 07:46 RBC 4.15 L (4.30-5.90) m/uL Lymphocytes # 0.6 L (1.0-4.8) k/uL Sodium 136 L (137-145) mmol/L Creatinine 0.60 L (0.66-1.25) mg/dL Glucose 138 H (74-99) mg/dL POC Glucose (mg/dL) 130 H (75-99) mg/dL Calcium 8.0 L (8.4-10.2) mg/dL Albumin 3.4 L (3.5-5.0) g/dL 04/23/16 04/23/16 Range/Units 11:38 16:46 RBC (4.30-5.90) m/uL Lymphocytes # (1.0-4.8) k/uL Sodium (137-145) mmol/L Creatinine (0.66-1.25) mg/dL Glucose (74-99) mg/dL POC Glucose (mg/dL) 144 H 143 H (75-99) mg/dL Calcium (8.4-10.2) mg/dL Albumin (3.5-5.0) g/dL Assessment and Plan (1) Small bowel obstruction Status: Acute (2) Intractable hiccups Status: Acute (3) Multiple fractures of ribs of right side Status: Acute (4) Right clavicle fracture Status: Acute Plan: Patient is been seen by orthopedics for possible surgery vs brachial plexus injury. I will sign off for now and see the patient as needed.
--- NOTE | 2016-04-23 19:22 | MR ---
EXAMINATION TYPE: MR brachial plexus RT wo/w con DATE OF EXAM: 04/23/2016 6:50 PM COMPARISON: NONE HISTORY: Pt states he fx upper right side ribs, clavicle and shoulder CONTRAST: Standard multiplanar, multisequence MRI departmental protocol utilizing 20 mL intravenous MultiHance gadolinium contrast. FINDINGS: There is a mid shaft fracture of the right clavicle. There is 100% posterior displacement o f the medial fragment. There is surrounding fluid signal on the T2-weighted images consistent with ed christopher. There is spurring at the glenohumeral joint. There is mild narrowing of the cervical disc spaces . I see no paraspinal mass. There is disc space narrowing and spurring of the endplates in the lower cervical spine and mild relative spinal stenosis. I see no evidence of a brachial plexus mass. There is no sign of a hematoma. There is fluid signal seen around the wing of the scapula anteriorly and po steriorly. IMPRESSION: There is a displaced clavicle fracture with surrounding edema. There is mild fluid around the scapula consistent with soft tissue injury and edema. Osteoarthritis is present in the shoulder joint. No ev idence of brachial plexus mass. Spondylotic changes in the lower cervical spine with mild lower cervi ahsan spinal stenosis. The canal is narrowed to 7 mm at C5-6 based on the MR scan cervical spine of 04/21.
--- NOTE | 2016-04-23 19:23 | P.PN ---
Subjective This patient is a 65-year-old male who was seen on an urgent consultation yesterday for evaluation of acute right arm weakness. Patient had sustained a fall on ice and struck the back of his head and injured his right arm. He sustained a right clavicular fracture. Since the fall he has been unable to use his right arm. Neurology was consult with stat yesterday for further evaluation of right arm weakness. His neurological examination suggest possibility of a right brachial plexus injury. He is scheduled to undergo MRI of the brachial plexus later today. MRI of the cervical spine had been done 2 days earlier. Review of this MRI also revealed a significant disc herniation at C5-C6. We recommended orthopedic spine consultation which was completed today by Dr. Monroy. Patient is being considered for possible surgical intervention tomorrow morning and we will await further recommendations from Dr. Monroy. The patient has seen no further improvement with his right arm weakness. As mentioned MRI of the cervical spine does show a significant disc herniation at C5-C6 which may be contributing to his right arm weakness. We will await the results of his MRI of the brachial plexus and we will give further recommendations at that time. Patient did go for MRI of the brachial plexus late this evening. Results of the MRI are pending at this time. Patient was seen today by Dr. Monroy from orthopedic spine surgery. He did review his MRI of the cervical spine and agrees that patient may have brachial plexus injury. Depending on the results of the MRI of the brachial plexus further recommendations will be given. Patient is being considered for possible cervical spine surgery tomorrow pending these results. We will discuss this case tomorrow with Dr. Monroy in terms of further management. Case was discussed this evening with the patient in detail. He is anxious to go home but will need to wait until we see the results of his MRI of the brachial plexus. His overall prognosis at this time remains very guarded. Objective - Vital Signs Vital signs: Vital Signs Temp 97.4 F L 04/23/16 15:00 Pulse 88 04/23/16 15:00 Resp 18 04/23/16 15:00 BP 140/80 04/23/16 15:00 Pulse Ox 96 04/23/16 15:00 Intake & Output 04/22/16 04/23/16 04/23/16 18:59 06:59 18:59 Intake Total 180 1560 120 Balance 180 1560 120 Weight 90.718 kg Intake: Oral 180 1560 120 Other: Voiding Method Toilet # Voids 1 2 3 - Exam Physical examination: PHYSICAL EXAMINATION: Patient is resting comfortably in bed. VITAL SIGNS: Blood pressure is [140/80]. Heart rate is [88]. Respiration is [18] . Temperature is [97.4]. HEENT: Head is atraumatic, neck is supple, there were no carotid bruits. CHEST: Lungs are clear to auscultation and percussion. CARDIAC: S1, S2 normal rate and rhythm. There is no murmur. ABDOMEN: Soft and nontender. Bowel sounds are present. EXTREMITIES: There is no pedal edema. Peripheral pulses are present. Neurological examination: Patient's neurological examination is unchanged from yesterday. Patient does not notice much improvement with the use of his right arm today in terms of muscle strength. - Labs CBC & Chem 7: 04/23/16 07:22 04/23/16 07:22 Labs: Abnormal Lab Results - Last 24 Hours (Table) 04/23/16 04/23/16 04/23/16 Range/Units 07:22 07:22 07:46 RBC 4.15 L (4.30-5.90) m/uL Lymphocytes # 0.6 L (1.0-4.8) k/uL Sodium 136 L (137-145) mmol/L Creatinine 0.60 L (0.66-1.25) mg/dL Glucose 138 H (74-99) mg/dL POC Glucose (mg/dL) 130 H (75-99) mg/dL Calcium 8.0 L (8.4-10.2) mg/dL Albumin 3.4 L (3.5-5.0) g/dL 04/23/16 04/23/16 Range/Units 11:38 16:46 RBC (4.30-5.90) m/uL Lymphocytes # (1.0-4.8) k/uL Sodium (137-145) mmol/L Creatinine (0.66-1.25) mg/dL Glucose (74-99) mg/dL POC Glucose (mg/dL) 144 H 143 H (75-99) mg/dL Calcium (8.4-10.2) mg/dL Albumin (3.5-5.0) g/dL Assessment and Plan (1) Injury of right brachial plexus Status: Acute Code(s): S14.3XXA - INJURY OF BRACHIAL PLEXUS, INITIAL ENCOUNTER (2) Right clavicle fracture Status: Acute Code(s): S42.001A - FRACTURE OF UNSP PART OF RIGHT CLAVICLE, INIT FOR CLOS FX (3) Cervical spondylosis with radiculopathy Status: Acute Code(s): M47.22 - OTHER SPONDYLOSIS WITH RADICULOPATHY, CERVICAL REGION (4) Multiple fractures of ribs of right side Status: Acute Code(s): S22.41XA - MULTIPLE FRACTURES OF RIBS, RIGHT SIDE, INIT FOR CLOS FX Plan: This patient is a 65-year-old right-handed white male who was admitted to the hospital on 04/19/2016 for small bowel obstruction. He was being readied for discharge home today when he was found to have weakness and numbness in his right arm. Apparently this had been present even after he sustained a fall on ice pack on 04/15/2016. Neurology was consult to today for further evaluation. His neurological examination suggest possibility of right brachial plexus injury. Review of his MRI of the cervical spine also reveals a significant disc herniation at C5-C6 likely contributing to right arm weakness. We have recommended the patient to have an MRI of the right brachial plexus as well as a consultation with orthopedic spine surgery and Dr. Monroy. Patient's discharges been placed on hold at this time. Case was discussed with Dr. Gonzales and he agrees with our current treatment plan. We will await the results of his MRI and further recommendations from orthopedic spine surgery. His overall prognosis at this time remains very guarded. Case was also discussed today with Dr. Palomo in detail. She is aware of our findings and recommendations. Patient did go for MRI of the right brachial plexus today. Where waiting the final report of this MRI. Patient was also seen today by Dr. Monroy in regards to his recent MRI of the cervical spine. He agrees that there is a disc problem at C5-C6 and he may require surgical intervention. We will await the results of his MRI of the brachial plexus and discussed the case tomorrow with orthopedic spine surgery and Dr. Monroy. Patient's overall prognosis at this time remains very guarded. We will continue close neurological follow-up for this patient during this admission.
[2016-04-23 21:42] LABS: Glucose,Whole Blood 183 mg/dL (75-99)
[2016-04-23] MEDS: LORazepam 2 MG/ML SYRINGE IV PRN (23:21)
[2016-04-24] MEDS: methylPREDNISolone SOD SUCCI 125 MG/2 ML VIAL IV SCH ×3 (05:33→21:06)
[2016-04-24 06:53] LABS: Glucose,Whole Blood 152 mg/dL (75-99)
[2016-04-24] MEDS: INSULIN LISPRO (humaLOG) 300 UNIT/3 ML VIAL SQ SCH ×4 (08:01→21:07)
[2016-04-24] MEDS: LIDOCAINE 5% PATCH TOPICAL SCH (08:04)
[2016-04-24] MEDS: LISINOPRIL 10 MG TAB PO SCH (08:05)
[2016-04-24] MEDS: FAMOTIDINE 20 MG TAB PO SCH ×2 (08:06→21:06)
--- NOTE | 2016-04-24 08:53 | P.PN ---
Progress Note - Text Patient is seen and examined today at bedside. I reviewed his imaging of his brachial plexus thousand yesterday and also reviewed other notes from of the surfaces including neurology from yesterday. The patient reports no significant changes at his upper extremity. He still has significant weakness. There is some use of his hand and fingers but this has not improved further even with the IV steroids. He denies any troubles with his bowel movements. He denies any worsening symptoms. On exam he is afebrile with stable vital signs His right upper extremity neurologically is unchanged. He has essentially 2 out of 5 strength with biceps triceps and wrist extension and flexion. He has about 3 out of 5 strength at his fingers. His right clavicle still has significant swelling and ecchymosis. There is diffuse swelling over his entire right arm. He has no hyperreflexia. Negative Benja's. His left upper extremity is nontender to palpation with motion. His neck is nontender to palpation posteriorly. He has some anterior tenderness with his clavicle. His lower extremity full active and passive range of motion. His labs are reviewed and appear overall stable. Cervical MRI and brachial plexus MRI of both been reviewed. Assessment and plan Right upper extremity acute neurologic deficit and weakness Status post fall from a standing position on the ice Cervical stenosis C5 6 C6 7 with disc herniation and cord impingement Right brachial plexus injury without evidence of mass or hematoma or laceration Right clavicle fracture and multiple rib fractures Resolved bowel obstruction The patient continues to have severe neurologic deficit as well as right upper extremity. Though it is difficult to discern what portion of this is coming from his brachial plexus and with portion is coming from his cervical spine it does seem as though both of these are contributing to his issues. He has significant stenosis at C5 6 and C6 7 with disc herniation. He does not have any upper motor neuron symptoms to indicate myelopathy but I think that he has some acute change due to his cervical spine along with his brachial plexus. For his brachial plexus there is no evidence of laceration or hematoma and we would not recommend any surgical intervention for this. However in regards to his cervical spine, there does seem to be a component due to his significant stenosis at his cervical spine contributing to his right upper extremity acute weakness and in that I think that surgical intervention is reasonable. This would give him the best chance of regaining strength and function at his right upper extremity if there is in fact a contribution from his cervical spine. We' ll plan anterior cervical decompression with discectomy at C5 6 and C6 7 with fusion at those levels to take the pressure off the spinal cord and nerve roots as well as stabilize those levels definitively. I discussed surgery with him at length. Discussed the nature of his injury and they issues involving his upper extremity function and neurologic change. I discussed the issues involving his brachial plexus as well as his cervical spine at length. I discussed with them the fact that he has neurologic injury which may not improve. He understands that with surgical intervention at his cervical spine this gives him the opportunity for decompressing the nerves and potential for recovery however this by no means is any guarantee of improvement and recovery at his upper extremity function. I discussed the risk of complications, alternatives and benefits at length including but not limited to the risk of bleeding risk of infection risk of need for further surgery risk of decreased or loss of motion loss of function malunion nonunion hardware failure nerve damage focal cord issues swallowing difficulties as well as the fact that surgery may not alleviate his symptoms and he understands. I've answered all his questions best my ability in a language that he can understand and he is agreeable. We will plan to proceed with surgical intervention today.
--- NOTE | 2016-04-24 11:26 | P.PN ---
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 with a previous medical history significant for hypertension and hypertensive cardiovascular disease with left ventricular hypertrophy, Osteoarthritis, history of colon cancer that was diagnosed back in 1997 post hemicolectomy, history of ALLERGIC rhinitis, hearing disorder, patient is quite active and run at least 9 miles a daily basis on his elliptical machine at home, he was working outside few days ago shoveling snow and suddenly he slipped on ice and he landed on his back first hit his head that he hit his right shoulder and back patient developed to have a significant pain in the right side of his chest as well as right shoulder he was brought into the emergency department at [facility] when he had numerous x-rays and his computed tomography scan of the brain , he was diagnosed with the collarbone fracture as well as rib fractures on the right side and he was placed on pain management and side effect is been getting stool softener as well as incentive spirometer patient ended up be calming more bloated with increased bowel pain history with nausea and vomiting he came to the emergency department yesterday at around 11:00 and he left at around 3:00 after he did receive an enema 2 with minimal results however he will came back in the morning because of increased abdominal pain and distention associated with nausea and vomiting he had a computed tomography scan of the abdomen and pelvis this time and that showed small bowel obstruction, he was admitted under Dr. Gonzales and we were asked to see him for medical management. Patient had an NG tube placed and he was admitted to the surgical floor. He was placed on IV fluid . 2/5: Patient is sitting up in bed is feeling a lot better today he did have multiple bowel movements that appears to be loose, he had repeated x-ray that showed air-fluid levels however the patient appears to be a lot better with less than 200 mL in the canister from his NG tube. We'll clamp the NG tube along the patient walk around and if the patient continued to be distended and he has to stay for another 24 hours . 2/6: Patient has been evaluated by orthopedics for right arm numbness since his fall with rib fractures and right clavicle fracture. He also has loss of range of motion and inability to lift the right arm. MRI of the cervical spine has been ordered. Patient has had stools and passing gas. He denies any abdominal pain. Anticipate discharge later today after MRI. 04/22: Cervical MRI shows a suboptimal study due to artifact gradation there is multilevel degenerative changes in the cervical spine most pronounced spinal canal effacement or stenosis noted at C5/C6. There is a 5 mm oval well circumscribed low intense lesion at T2 vertebral body level on sagittal image for appears probable extra medullary intradural. This can be further investigated with dedicated thoracic spine MRI. Orthopedics has recommended neurology consult. Abdominal x-rays this morning revealed nonspecific bowel gas pattern. Possible partial obstruction may still be persistent with no significant change since admission CAT scan. Chest x-ray shows no acute pulmonary process. Dr. Gonzales has transferred care over to medicine. 04/23: Patient has been evaluated by Dr. Harris and his review of the MRI of the cervical spine reveals a significant disc herniation at C5-C6 likely contributing to right arm weakness. He has recommended the patient to have an MRI of the right brachial plexus as well as a consultation with orthopedic spine surgery, Dr. Monroy. Dr. Monroy is planning for surgery in the morning. He does have some minimal improvement of the weakness in the right arm after steroids were started yesterday. He denies any cough or fever. He does have occasional hiccups continuing. Lovenox will be discontinued. Anticipate patient will be ready for discharge on Thursday. 04/24: Patient is scheduled for anterior cervical discectomy and fusion C5-6, C6- 7 today. He denies any new complaints. He continues to have significant weakness of the right arm. Objective - Vital Signs Vital signs: Vital Signs Temp 97.1 F L 04/24/16 07:00 Pulse 69 04/24/16 07:00 Resp 16 04/24/16 07:00 BP 137/77 04/24/16 07:00 Pulse Ox 95 04/24/16 07:00 Intake & Output 04/23/16 04/24/16 04/24/16 18:59 06:59 18:59 Intake Total 120 540 Balance 120 540 Weight 90.718 kg Intake: Oral 120 540 Other: Voiding Method Toilet # Voids 3 1 - Exam General appearance: average body habitus, mild distress - EENT Eyes: anicteric sclerae, PERRLA, no ptosis, no scleral icterus, normal appearance (NG tube in place.) ENT: hard of hearing, normal oropharynx, no thrush Ears: bilateral: normal - Neck Neck: no lymphadenopathy, normal ROM, no rigidity, no stridor, no thyromegaly Carotids: bilateral: upstroke normal Thyroid: bilateral: normal size - Respiratory Respiratory: bilateral: diminished, negative: dullness, rales, rhonchi, wheezing , prolonged expiration, prolonged inspiration - Cardiovascular Rhythm: regular Heart sounds: normal: S1, S2 Abnormal Heart Sounds: no systolic murmur, no S3 Gallop, no S4 Gallop - Gastrointestinal General gastrointestinal: Normal bowel sounds, soft, nontenderness, no umbilical hernia, no ventral hernia - Integumentary Integumentary: normal, normal turgor - Neurologic Neurologic: CNII-XII intact - Musculoskeletal Musculoskeletal: strength equal bilaterally - Psychiatric Psychiatric: A&O x's 3, appropriate affect, intact judgment & insight - Labs CBC & Chem 7: 04/23/16 07:22 04/23/16 07:22 Labs: Abnormal Lab Results - Last 24 Hours (Table) 04/23/16 04/23/16 04/23/16 Range/Units 11:38 16:46 21:41 POC Glucose (mg/dL) 144 H 143 H 183 H (75-99) mg/dL 04/24/16 Range/Units 06:52 POC Glucose (mg/dL) 152 H (75-99) mg/dL Assessment and Plan Plan: 1. Acute small bowel obstruction due to narcotic pain medication. Resolved. 2. Recent right posterior rib fractures and right fibular fracture. Continue since parameter to reduce the incidence of atelectasis and hospital-acquired pneumonia. 3. Hyponatremia with minimal prerenal azotemia. 4. Hypertension and hypertensive cardio vascular disease. Substituted lisinopril Vasotec 1.25 mg IV push every 6 hours as needed for systolic blood pressure greater than or equal to 1 50 mmHg. 5. History of carcinoid tumor status post right hemicolectomy. Currently in remission 6. DVT prophylaxis. Lovenox 40 mg subcutaneously every 24 hours. 7. GI prophylaxis. Protonix 40 mg IV push every 24 hours. 8. Disc herniation at C5-C6 causing numbness to the right arm with decreased range of motion after recent rib fractures and right clavicle fracture. Orthopedic consult. Neurology consult. Dr. Monroy is planning for surgery today. Discharge plan: Home on Thursday Impression and plan of care have been directed as dictated by the signing physician. Shanelle Connolly nurse practitioner acting as scribe for signing physician. Time with Patient: Greater than 30
[2016-04-24 11:28] LABS: Glucose,Whole Blood 139 mg/dL (75-99)
[2016-04-24] MEDS ORDERED: LACTATED RINGERS 1,000 ML IV ONE ×3 (11:47→14:23)
[2016-04-24] MEDS ORDERED: IV FLUID CONTINUATION 1,000 ML IV ONE (11:47)
[2016-04-24] MEDS ORDERED: ceFAZolin 2 GM in SODIUM CHLORIDE 0.9% 100 ML IVPB ONE (11:52)
[2016-04-24] MEDS ORDERED: LIDOCAINE 1% 20 ML VIAL (10MG/ML) FOR IV START SQ ONE (11:55)
[2016-04-24] MEDS ORDERED: MIDAZOLAM 2 MG/2 ML VIAL IV ONE (12:04)
[2016-04-24] MEDS ORDERED: BACITRACIN 50,000 UNIT, POLYMYXIN B 500,000 UNIT in SODIUM CHLORIDE 0.9% IRRIGATIO 1,00... IRRIGATION ONE ×2 (12:21→12:22)
[2016-04-24] MEDS ORDERED: THROMBIN (BOVINE) 5,000 UNIT VIAL TOPICAL ONE (12:26)
[2016-04-24] MEDS ORDERED: LIDOCAINE 1%-EPI 1:100,000 20 ML VIAL SQ ONE (12:26)
[2016-04-24] MEDS ORDERED: MIDAZOLAM 2 MG/2 ML VIAL ONE (12:26)
[2016-04-24] MEDS ORDERED: PROPOFOL 10 MG/ML 20 ML VIAL IV ONE (12:26)
[2016-04-24] MEDS ORDERED: fentaNYL (PF) 50 MCG/ML 2 ML AMP ONE (12:26)
[2016-04-24] MEDS ORDERED: ePHEDrine 50 MG/ML 1 ML AMP ONE (12:26)
[2016-04-24] MEDS ORDERED: SUCCINYLCHOLINE CHLORIDE 100 MG/5 ML SYR IV ONE (12:26)
[2016-04-24] MEDS ORDERED: GELATIN SPONGE,ABSORB (LARGE) 1 EACH SPONGE TOPICAL ONE (12:26)
[2016-04-24] MEDS ORDERED: LIDOCAINE 1% INJ 10MG/ML (20 ML MDV) ONE (12:26)
[2016-04-24] MEDS ORDERED: PHENYLEPHRINE-0.9% NACL SYG 1 MG/10 ML SYRINGE ONE (12:26)
--- NOTE | 2016-04-24 13:48 | XR ---
EXAMINATION TYPE: XR cervical spine 1V DATE OF EXAM: 04/24/2016 1:25 PM COMPARISON: NONE HISTORY: Spinal spine fusion surgical planning TECHNIQUE: Single portable crosstable lateral view of cervical spine is obtained intraoperatively. FINDINGS: Exam is for surgical planning and upper diagnostic purposes. Metallic pointers noted at the superior anterior C6 vertebral body level. Moderate spurring and disc space narrowing at C5-C6 and C 6-C7 levels is present. IMPRESSION: As above.
--- NOTE | 2016-04-24 14:24 | XR ---
EXAMINATION TYPE: XR cervical spine 1V DATE OF EXAM: 04/24/2016 2:13 PM COMPARISON: Cervical spine x-ray earlier today. HISTORY: Cervical spine fusion TECHNIQUE: Portable crosstable lateral view of cervical spine is obtained intraoperatively FINDINGS: There is new anterior fusion plate C5-C7 levels and hyperdense disc material at C5-C6 and C 6-C7 disc space levels. Inferior screws project towards C7-T1 disc space. Alignment is maintained. IMPRESSION: As above
[2016-04-24] MEDS ORDERED: HYDROcodone/APAP 5-325MG 1 EACH TAB PO PRN ×2 (14:27→14:34)
[2016-04-24] MEDS ORDERED: HYDROmorphone 1 MG/ML 1 ML SYRINGE IVP PRN (14:27)
[2016-04-24] MEDS ORDERED: BENZOCAINE/MENTHOL LOZENG 1 EACH LOZENGE MUCOUS MEM PRN (14:27)
[2016-04-24] MEDS ORDERED: DIAZEPAM 5 MG TAB PO PRN (14:27)
[2016-04-24] MEDS ORDERED: MAG HYDROX/AL HYDROX/SIMETH 30 ML CUP PO PRN (14:27)
--- NOTE | 2016-04-24 14:37 | P.OP ---
Date of Procedure: 04/24/16 Preoperative Diagnosis: Herniated nucleus pulposis C5 6 C6 7, right upper extremity weakness acute, radiculopathy right upper extremity, degenerative disc disease C5 6 C6 7, cervical stenosis C5 6 C6 7 Postoperative Diagnosis: Same Anesthesia: GETA Pathology: none sent Condition: stable Disposition: PACU Description of Procedure: BRIEF OPERATIVE NOTE Preoperative Diagnosis: Herniated nucleus pulposis C5 6 C6 7, cervical stenosis C5 6 C6 7, acute right upper extremity weakness, degenerative disc disease C5 6 C6 7 Postoperative Diagnosis: Same Procedure: Anterior cervical decompression with discectomy and fusion C5 6 C6 7 Placement of interbody graft C5 6 C6 7 Application of anterior cervical plate C5 6 7 Surgeon: Dr. Monroy Ditching Machine Engineer: Ashlyn EDGAR who is present throughout the entire the case persistence during positioning, dissection, exposure, visualization, and all crucial elements of the case as well as closure. Anesthesia: General anesthesia Estimated blood loss: Approximately 50 mL Complications: None apparent Components implanted: K2M [place] anterior cervical plate system with Vikos interbody allograft bone and 1 mL of DBX bone putty Disposition: To recovery room in good stable condition. OPERATIVE INDICATIONS The patient has acute new onset right upper extremity weakness that began after sustaining a fall approximately 1 week ago. He states that normally he has good function in his extremities and was not having any weakness until after he sustained a fall. He initially had some numbness and was found have numerous blunt injuries including clavicle fracture and multiple rib fractures which were being treated conservatively. The patient developed weakness at his right upper extremity and has severe neurologic deficit over his right upper extremity. He was admitted and had workup with neurology as well as with our service. It was felt that he had acute injury possibly due to a brachial plexus injury with components from his cervical spine where he had evidence of disc herniation with stenosis as well. It was difficult to fully discern whether his symptoms came fully from his cervical spine or his brachial plexus but we felt that there was components from each areas contributing to his acute neurologic change and weakness. He was not having evidence of myelopathy. He had started conservative treatment and was having some improvement in his hand function with IV steroid medications however this improvement seems to have plateaued and he was not having any benefit over his arm or forearm. We discussed various treatment options including surgery, and the patient wishes to proceed with surgery We discussed the risk, patient's alternatives and benefits of surgery including but not limited to, risk of bleeding risk of infection, risk of need for further surgery, risk of decreased, loss of motion, muscle function, malunion nonunion, hardware failure, nerve damage, paralysis, heart attack, and . We had lengthy discussions with the patient and with other services in regards to the case. The patient is aware that some of his issues with his weakness at his upper extremities may be permanent issues for him despite care. OPERATIVE SUMMARY After discussing all the risks, patient alternatives and benefits at length, the patient elected to proceed with surgical intervention, signed informed consent, and presented for their procedure. The patient was seen and examined in the preoperative holding area and the surgical site was marked. The patient was given antibiotics and brought to the operating room. The patient was positioned on the operating room table in a supine position being careful to pad any bony prominences and pressure points. The patient was sedated and intubated by anesthesia in standard fashion. Once the airway and C- spine were stabilized the patient's arms were padded and tucked at her side, with her shoulders gently taped. The head was placed in a donut pad with the neck in good neutral alignment and position. We were careful to maintain the patient's cervical spine and good neutral alignment and position throughout. The patient was prepped and draped in a normal standard fashion. An appropriate timeout and keystone protocol performed. We were able to proceed with the surgery. The local wound area was infiltrated with local anesthetic. An incision was made transversely approximately 2-1/2 cm over the appropriate levels at C6. Dissection was taken down subcutaneously to the level of the platysma which was split in line with its fibers. Dissection was taken with a carotid approach, with the trachea and esophagus medial and the carotid sheath laterally. We dissected down to the anterior surface of the vertebral bodies at C5 6 and 7. Intraoperative x-ray was taken which showed a marker at the appropriate level at C5 6. With the appropriate level positively confirmed, we were able to proceed with discectomy at the appropriate levels. All of the operative levels were exposed appropriately. There were large osteophytes at C5 6 and C6 7 and evidence of severe disc degeneration. The patient had all their twitches back, and there was no evidence of recurrent laryngeal issue. The wound was copiously irrigated and suctioned dry as had been done periodically throughout the case. At the appropriate level/levels, I established an annulotomy with an 11 blade scalpel. A discectomy was performed with a combination of pituitary rongeurs, curettes, a high-speed bur, and Kerrison rongeurs. There was evidence of disc herniation particularly at C5 6. The posterior longitudinal ligament was taken down as were any posterior osteophytes. This gave good central and bilateral foraminal decompression. There is no evidence of any dural tear or leak. The endplates were prepared with a high-speed bur. With the endplates in good parallel position, I was able to size for the appropriate size interbody graft. The wound was irrigated and suctioned dry the graft was prepared and malleted into position. It had good alignment and position with the anterior surface flush with the anterior surface of the vertebral bodies. This was done similarly the appropriate levels first at C5 6 and then at C6 7. With the grafts intact, I was able to measure and contour and appropriate sized plate. The plate was positioned at the midline over the appropriate levels at C5 6 and 7. Screw holes were established with a hand drill and drill guide. Screws were placed in good alignment and position with excellent bony purchase. They were seated under the locking device. The construct was checked and found to be stable. Intraoperative x-ray was taken which showed good alignment and position of the implants at the appropriate levels. There was no evidence of any dural tear or leak. Good hemostasis was maintained. The wound was copiously irrigated and suctioned dry as had been done periodically throughout the case. The platysma was closed with absorbable suture. The subcutaneous tissue was closed. The subcuticular tissue was closed with absorbable suture. The wound was cleaned and dried and dressed appropriately. A soft cervical collar was placed appropriately. The patient was woken up by anesthesia, extubated, transferred back gently to their hospital bed and brought to the recovery room in good stable condition. The patient will be admitted to the hospital for appropriate postoperative care , medical management and monitoring. We will continue to follow them closely about the postoperative course.
[2016-04-24 15:05] LABS: Glucose,Whole Blood 146 mg/dL (75-99)
[2016-04-24] MEDS ORDERED: HYDROmorphone 1 MG/ML 1 ML SYRINGE IVP ONE (15:30)
[2016-04-24 16:50] LABS: Glucose,Whole Blood 127 mg/dL (75-99)
[2016-04-24] MEDS: SODIUM CHLORIDE 0.9% 1,000 ML IV SCH (17:17)
--- NOTE | 2016-04-24 18:37 | P.PN ---
Subjective This patient is a 65-year-old male who was seen on an urgent consultation yesterday for evaluation of acute right arm weakness. Patient had sustained a fall on ice and struck the back of his head and injured his right arm. He sustained a right clavicular fracture. Since the fall he has been unable to use his right arm. Neurology was consult with stat yesterday for further evaluation of right arm weakness. His neurological examination suggest possibility of a right brachial plexus injury. He is scheduled to undergo MRI of the brachial plexus later today. MRI of the cervical spine had been done 2 days earlier. Review of this MRI also revealed a significant disc herniation at C5-C6. We recommended orthopedic spine consultation which was completed today by Dr. Monroy. Patient is being considered for possible surgical intervention tomorrow morning and we will await further recommendations from Dr. Monroy. The patient has seen no further improvement with his right arm weakness. As mentioned MRI of the cervical spine does show a significant disc herniation at C5-C6 which may be contributing to his right arm weakness. We will await the results of his MRI of the brachial plexus and we will give further recommendations at that time. Patient did go for MRI of the brachial plexus late this evening. Results of the MRI are pending at this time. Patient was seen today by Dr. Monroy from orthopedic spine surgery. He did review his MRI of the cervical spine and agrees that patient may have brachial plexus injury. Depending on the results of the MRI of the brachial plexus further recommendations will be given. Patient is being considered for possible cervical spine surgery tomorrow pending these results. We will discuss this case tomorrow with Dr. Monroy in terms of further management. Case was discussed this evening with the patient in detail. He is anxious to go home but will need to wait until we see the results of his MRI of the brachial plexus. His MRI of the brachial plexus was completed yesterday and reviewed. The MRI indicated a displaced fracture with surrounding edema over the right clavicle. There was no evidence of any of brachial plexus mass lesion. Spondylitic changes were noted in the cervical spine with mild lower cervical spinal stenosis at C5-C6. Based on the results of the MRI of the brachial plexus it was decided to proceed with cervical spine surgery today. Patient has recovered very well following surgery and seems to notice some improvement even though does very early with right arm movement and strength. We will continue to follow his progress closely during this admission. Objective - Vital Signs Vital signs: Vital Signs Temp 98.8 F 04/24/16 14:28 Pulse 82 04/24/16 15:59 Resp 16 04/24/16 15:59 BP 112/58 04/24/16 15:59 Pulse Ox 96 04/24/16 15:59 Intake & Output 04/23/16 04/24/16 04/24/16 18:59 06:59 18:59 Intake Total 948 436 0335 Output Total 150 Balance 846 361 7926 Weight 90.718 kg Intake: IV 2351 Oral 120 540 Output: Urine 100 Estimated Blood Loss 50 Other: Voiding Method Toilet # Voids 3 1 - Exam Physical examination: PHYSICAL EXAMINATION: Patient is resting comfortably in bed. VITAL SIGNS: Blood pressure is [133/70]. Heart rate is [88]. Respiration is [16] . Temperature is [98.8]. HEENT: Head is atraumatic, neck is supple, there were no carotid bruits. CHEST: Lungs are clear to auscultation and percussion. CARDIAC: S1, S2 normal rate and rhythm. There is no murmur. ABDOMEN: Soft and nontender. Bowel sounds are present. EXTREMITIES: There is no pedal edema. Peripheral pulses are present. Neurological examination: Patient's neurological examination is unchanged from yesterday. Patient does not notice much improvement with the use of his right arm today in terms of muscle strength. Patient notices slight improvement with the use of his right fingers in the hand trimmer machine. - Labs CBC & Chem 7: 04/23/16 07:22 04/23/16 07:22 Labs: Abnormal Lab Results - Last 24 Hours (Table) 04/23/16 04/23/16 04/24/16 Range/Units 16:46 21:41 06:52 POC Glucose (mg/dL) 143 H 183 H 152 H (75-99) mg/dL 04/24/16 04/24/16 Range/Units 11:25 14:59 POC Glucose (mg/dL) 139 H 146 H (75-99) mg/dL Assessment and Plan (1) Injury of right brachial plexus Status: Acute Code(s): S14.3XXA - INJURY OF BRACHIAL PLEXUS, INITIAL ENCOUNTER (2) Right clavicle fracture Status: Acute Code(s): S42.001A - FRACTURE OF UNSP PART OF RIGHT CLAVICLE, INIT FOR CLOS FX (3) Cervical spondylosis with radiculopathy Status: Acute Code(s): M47.22 - OTHER SPONDYLOSIS WITH RADICULOPATHY, CERVICAL REGION (4) Multiple fractures of ribs of right side Status: Acute Code(s): S22.41XA - MULTIPLE FRACTURES OF RIBS, RIGHT SIDE, INIT FOR CLOS FX Plan: This patient is 65-year-old male who was evaluated for acute right arm weakness. Patient underwent anterior cervical discectomy with fusion today with Dr. Monroy. He is undergone a successful surgery and seems to be recovering very well. His MRI of the brachial plexus yesterday failed to reveal any acute abnormalities to explain his right arm weakness. It was decided to move forward with an anterior cervical discectomy with fusion procedure for this patient this morning. The patient is in a soft collar at this time. He is not in any acute pain. He may require some outpatient physical therapy upon discharge. He seems to be making very good progress today and we will continue to monitor his condition closely during this admission.
[2016-04-24] MEDS: ceFAZolin 2 GM in SODIUM CHLORIDE 0.9% 100 ML IVPB SCH (21:06)
[2016-04-24 21:08] LABS: Glucose,Whole Blood 120 mg/dL (75-99)
[2016-04-24] MEDS: LORazepam 2 MG/ML SYRINGE IV PRN (23:01)
[2016-04-24] MEDS: HYDROcodone/APAP 5-325MG 1 EACH TAB PO PRN (23:03)
[2016-04-25] MEDS: methylPREDNISolone SOD SUCCI 125 MG/2 ML VIAL IV SCH ×3 (01:13→13:03)
[2016-04-25 01:34] VITALS: RESP 16
[2016-04-25] MEDS: ceFAZolin 2 GM in SODIUM CHLORIDE 0.9% 100 ML IVPB SCH (04:45)
[2016-04-25] MEDS: SODIUM CHLORIDE 0.9% 1,000 ML IV SCH (05:09)
[2016-04-25] MEDS: HYDROcodone/APAP 5-325MG 1 EACH TAB PO PRN (06:27)
[2016-04-25 07:25] LABS: Glucose,Whole Blood 126 mg/dL (75-99)
[2016-04-25 07:30] VITALS: BP 131/76; PULSE 65; TEMP 97.1
[2016-04-25] MEDS: INSULIN LISPRO (humaLOG) 300 UNIT/3 ML VIAL SQ SCH (07:42)
[2016-04-25] MEDS: LIDOCAINE 5% PATCH TOPICAL SCH (07:44)
[2016-04-25] MEDS: FAMOTIDINE 20 MG TAB PO SCH (07:45)
[2016-04-25] MEDS: LISINOPRIL 10 MG TAB PO SCH (07:45)
--- NOTE | 2016-04-25 08:28 | P.PN ---
Progress Note - Text Orthopedic Spine Patient is a pleasant 65-year-old male who is seen at the bedside following anterior cervical decompression and fusion performed yesterday for C5-6 and C6- 7 herniated nucleus pulposus, cervical stenosis, and degenerative disc disease, acute right upper extremity weakness, and right upper extremity radiculopathy.. Patient states he is doing well postsurgically. Currently does not complain of nausea, vomiting, fever, or chills. Patient states pain has been adequately controlled. Patient is eating and voiding freely without difficulty. He states he is ready for discharge home. He continues to have significant weakness with the right upper extremity. He has been on Solu-Medrol while here in hospital which has provided some relief of symptoms but his symptoms have tapered. We discussed he'll be given a prescription for prednisone taper discharge. He should take his taper until completion. He should avoid anti- inflammatories on the taper. He is also known to have a small bowel obstruction that has since resolved. He is afraid to take hydrocodone due to the constipation. We discussed he'll be given a prescription for Ultram 50 mg which he may take 1-2 tabs every 6 hours as needed for relief of his symptoms. He is also known to have a right clavicle fracture following his previous fall. He should continue to wear the sling at the right upper extremity. We discussed he should remove his arm from the sling to work on range of motion of the right elbow multiple times daily. He may continue wearing his soft cervical collar for comfort support as needed. We'll plan have him follow-up in the office on 05/06/2016 for further evaluation and treatment. We discussed from orthopedic spine standpoint, he is clear for discharge once cleared by medicine. Physical Exam Cervical Fusion: Status post surgical day number 1 Patient is awake, alert, and oriented 3 Vital signs stable Good chest excursion with deep inspiration and expiration Abdomen soft nontender Transfer Clerk strength, thumb strength, interosseous strength, biceps strength, triceps strength, and shoulder strength positive sustained on the left Significant right upper extremity weakness with biceps, triceps, deltoids, wrist extension Able to move fingers of the right hand without significant difficulty Right upper extremity commissioner of relocation services 3-/5 Right upper extremity any interosseous strength, biceps strength, wrist flexion , and triceps strength 2+/5 No evidence of hyperreflexia bilaterally upper extremities Negative Benja's sign bilaterally Right upper extremity swelling over the right clavicle, upper extremity, forearm , and hand Palpable bump over the right clavicle at the site of the fracture Significant bruising and erythema over the fracture site of the right clavicle No signs or symptoms of DVT; no calf pain Dressing is clean, dry, and intact; no erythema, purulence, or signs of infection Patient is wearing soft cervical collar Sling not currently intact right upper extremity Assessment: Anterior cervical decompression and fusion C5-6 and C6-7 Right upper extremity radiculopathy Right clavicle fracture with pain Right brachial plexus injury Status post fall Small bowel obstruction resolved Plan: 1. Ambulate as tolerated; work with Physical Therapy to increase mobilization 2. Continue pain control 3. Patient may shower with Tegaderm dressing; patient may remove Tegaderm in 4 days and shower without a dressing at that time 4. Medical management can continue to manage patient for patient's other medical issues including resolved small bowel obstruction 5. From an orthopedic spine standpoint, patient is now clear for discharge once cleared by medicine; he is given a prescription for a prednisone taper and Ultram 50 mg at discharge; he may continue to take a stool softener at home 6. Patient can follow-up with Enoch Retana PA-C or Dr. Kye Monroy at [facility] on 05/06/2016 following discharge
[2016-04-25] MEDS ORDERED: LORATADINE 10 MG TAB PO SCH (09:00)
--- NOTE | 2016-04-25 12:38 | P.DS ---
Providers Date of admission: 04/19/16 12:49 Expected date of discharge: 04/25/16 Attending physician: Cecy Palomo Consults: 04/22/16 09:14 Consult Physician Stat Consulting Provider: Ej Harris Consult Reason/Comments: Numbness right arm inability to lift Do you want consulting provider notified?: Yes 04/22/16 14:59 Consult Physician Routine Consulting Provider: Ganesh Monroy Consult Reason/Comments: cervical disc herniation, trauma with brachial plexus Do you want consulting provider notified?: Yes 04/23/16 11:14 Consult Physician Routine Consulting Provider: Tiffany Gonzales Consult Reason/Comments: SBO Do you want consulting provider notified?: Already Contacted Primary care physician: [facility] Course: This is a 65-year-old male one of Dr. Martell with a previous medical history significant for hypertension and hypertensive cardiovascular disease with left ventricular hypertrophy, Osteoarthritis, history of colon cancer that was diagnosed back in 1997 post hemicolectomy, history of ALLERGIC rhinitis, hearing disorder, patient is quite active and run at least 9 miles a daily basis on his elliptical machine at home, he was working outside few days ago shoveling snow and suddenly he slipped on ice and he landed on his back first hit his head that he hit his right shoulder and back patient developed to have a significant pain in the right side of his chest as well as right shoulder he was brought into the emergency department at [facility] when he had numerous x-rays and his computed tomography scan of the brain , he was diagnosed with the collarbone fracture as well as rib fractures on the right side and he was placed on pain management and side effect is been getting stool softener as well as incentive spirometer patient ended up be calming more bloated with increased bowel pain history with nausea and vomiting he came to the emergency department yesterday at around 11:00 and he left at around 3:00 after he did receive an enema 2 with minimal results however he will came back in the morning because of increased abdominal pain and distention associated with nausea and vomiting he had a computed tomography scan of the abdomen and pelvis this time and that showed small bowel obstruction, he was admitted under Dr. Gonzales and we were asked to see him for medical management. Patient had an NG tube placed and he was admitted to the surgical floor. He was placed on IV fluid . 2/5: Patient is sitting up in bed is feeling a lot better today he did have multiple bowel movements that appears to be loose, he had repeated x-ray that showed air-fluid levels however the patient appears to be a lot better with less than 200 mL in the canister from his NG tube. We'll clamp the NG tube along the patient walk around and if the patient continued to be distended and he has to stay for another 24 hours . 04/21: Patient has been evaluated by orthopedics for right arm numbness since his fall with rib fractures and right clavicle fracture. He also has loss of range of motion and inability to lift the right arm. MRI of the cervical spine has been ordered. Patient has had stools and passing gas. He denies any abdominal pain. Anticipate discharge later today after MRI. 04/22: Cervical MRI shows a suboptimal study due to artifact gradation there is multilevel degenerative changes in the cervical spine most pronounced spinal canal effacement or stenosis noted at C5/C6. There is a 5 mm oval well circumscribed low intense lesion at T2 vertebral body level on sagittal image for appears probable extra medullary intradural. This can be further investigated with dedicated thoracic spine MRI. Orthopedics has recommended neurology consult. Abdominal x-rays this morning revealed nonspecific bowel gas pattern. Possible partial obstruction may still be persistent with no significant change since admission CAT scan. Chest x-ray shows no acute pulmonary process. Dr. Gonzales has transferred care over to medicine. 04/23: Patient has been evaluated by Dr. Harris and his review of the MRI of the cervical spine reveals a significant disc herniation at C5-C6 likely contributing to right arm weakness. He has recommended the patient to have an MRI of the right brachial plexus as well as a consultation with orthopedic spine surgery, Dr. Monroy. Dr. Monroy is planning for surgery in the morning. He does have some minimal improvement of the weakness in the right arm after steroids were started yesterday. He denies any cough or fever. He does have occasional hiccups continuing. Lovenox will be discontinued. Anticipate patient will be ready for discharge on Thursday. 04/24: Patient is scheduled for anterior cervical discectomy and fusion C5-6, C6- 7 today. He denies any new complaints. He continues to have significant weakness of the right arm. 04/25: Yesterday patient underwent anterior cervical decompression with discectomy and fusion C5-6 and C6-7. Patient has a soft cervical collar. Patient has been cleared for discharge from orthopedic spine. He is on a prednisone taper and Ultram for home. He has a follow-up appointment on May 06 and at that time physical therapy will be arranged. Patient will be discharged home today in stable condition. Discharge Diagnoses: 1. Acute small bowel obstruction due to narcotic pain medication. Resolved. 2. Recent right posterior rib fractures and right fibular fracture. 3. Hyponatremia with minimal prerenal azotemia. 4. Hypertension and hypertensive cardio vascular disease. 5. History of carcinoid tumor status post right hemicolectomy. 6. Disc herniation at C5-C6 causing numbness to the right arm with decreased range of motion after recent rib fractures and right clavicle fracture. Orthopedic consult. Neurology consult. Dr. Monroy is planning for surgery today. Discharge plan: Home on Thursday Impression and plan of care have been directed as dictated by the signing physician. Shanelle Connolly nurse practitioner acting as scribe for signing physician. Patient Condition at Discharge: Good Plan - Discharge Summary New Discharge Prescriptions: Diazepam [Valium] 5 mg PO QID PRN #30 tab PRN Reason: Anxiety or spasm Famotidine [Pepcid] 20 mg PO BID #60 tab predniSONE 20 mg PO DIRECTED #24 tab traMADol HCL [Ultram] 50 mg PO Q6HR PRN #90 tab PRN Reason: Pain Discharge Medication List Lisinopril 30 mg PO QAM 04/15/16 [History] Loratadine [Claritin] 10 mg PO QAM 04/15/16 [History] Sennosides-Docusate Sodium [Senokot-S] 2 tab PO DAILY #60 tablet 04/16/16 [Rx] Hydrocodone/Acetaminophen [[place] 5-325] 1 - 2 tab PO Q6HR PRN 04/19/16 [History] Diazepam [Valium] 5 mg PO QID PRN #30 tab 04/25/16 [Rx] Famotidine [Pepcid] 20 mg PO BID #60 tab 04/25/16 [Rx] predniSONE 20 mg PO DIRECTED #24 tab 04/25/16 [Rx] traMADol HCL [Ultram] 50 mg PO Q6HR PRN #90 tab 04/25/16 [Rx] Follow up Appointment(s)/Referral(s): Ganesh Monroy DO [Doctor of Osteopathic Medicine] - 05/06/16 10:30 am Mynor Martell MD [Primary Care Provider] - 05/01/16 10:30 am Patient Instructions/Handouts: *Surgery [facility] - ([place]) Cervical Surgery Discharge Instructions, Constipation (DC), Ileus (DC) Activity/Diet/Wound Care/Special Instructions: 1. Patient may shower Tegaderm dressing intact. 2. Patient may remove Tegaderm dressing in 3 days and shower without a dressing at that time. 3. Patient should keep Steri-Strips intact and allow them to fall off naturally. 4. Patient should refrain from driving until at least after their first follow- up appointment in the office. 5. Patient should avoid excessive bending, twisting, and lifting; no lifting greater than 10 pounds 6. Do not soak in tub 7. Keep sling intact for the right upper extremity for his known right clavicle fracture; encouraged to remove elbow from the sling multiple times daily to work on range of motion of the right elbow Discharge Disposition: HOME SELF-CARE
--- NOTE | 2016-04-25 12:57 | P.PN ---
Subjective This patient is a 65-year-old male who was seen on an urgent consultation yesterday for evaluation of acute right arm weakness. Patient had sustained a fall on ice and struck the back of his head and injured his right arm. He sustained a right clavicular fracture. Since the fall he has been unable to use his right arm. Neurology was consult with stat yesterday for further evaluation of right arm weakness. His neurological examination suggest possibility of a right brachial plexus injury. He is scheduled to undergo MRI of the brachial plexus later today. MRI of the cervical spine had been done 2 days earlier. Review of this MRI also revealed a significant disc herniation at C5-C6. We recommended orthopedic spine consultation which was completed today by Dr. Monroy. Patient is being considered for possible surgical intervention tomorrow morning and we will await further recommendations from Dr. Monroy. The patient has seen no further improvement with his right arm weakness. As mentioned MRI of the cervical spine does show a significant disc herniation at C5-C6 which may be contributing to his right arm weakness. We will await the results of his MRI of the brachial plexus and we will give further recommendations at that time. Patient did go for MRI of the brachial plexus late this evening. Results of the MRI are pending at this time. Patient was seen today by Dr. Monroy from orthopedic spine surgery. He did review his MRI of the cervical spine and agrees that patient may have brachial plexus injury. Depending on the results of the MRI of the brachial plexus further recommendations will be given. Patient is being considered for possible cervical spine surgery tomorrow pending these results. We will discuss this case tomorrow with Dr. Monroy in terms of further management. Case was discussed this evening with the patient in detail. He is anxious to go home but will need to wait until we see the results of his MRI of the brachial plexus. His MRI of the brachial plexus was completed yesterday and reviewed. The MRI indicated a displaced fracture with surrounding edema over the right clavicle. There was no evidence of any of brachial plexus mass lesion. Spondylitic changes were noted in the cervical spine with mild lower cervical spinal stenosis at C5-C6. Based on the results of the MRI of the brachial plexus it was decided to proceed with cervical spine surgery today. Patient has recovered very well following surgery and seems to notice some improvement even though does very early with right arm movement and strength. We will continue to follow his progress closely during this admission. Patient was seen by Dr. Monroy today and has been cleared for discharge to home. He continues to show improvement in his right arm strength. We once again reviewed all of his imaging studies with the patient and he seems to understand the finding of cervical disc herniation at C5-C6 and C6 7 levels that required surgery. He is to continue with use of a cervical soft collar. He is being discharged on prednisone and Ultram for pain management at home. Objective - Vital Signs Vital signs: Vital Signs Temp 97.1 F L 04/25/16 07:30 Pulse 65 04/25/16 07:30 Resp 16 04/25/16 07:30 BP 131/76 04/25/16 07:30 Pulse Ox 95 04/25/16 07:30 Intake & Output 04/24/16 04/25/16 04/25/16 18:59 06:59 18:59 Intake Total 2351 180 Output Total 150 1000 Balance 2201 -1000 180 Intake: IV 2351 Oral 180 Output: Urine 100 1000 Estimated Blood Loss 50 Other: Voiding Method Toilet Toilet # Voids 1 1 - Exam Physical examination: PHYSICAL EXAMINATION: Patient is resting comfortably in bed. VITAL SIGNS: Blood pressure is [131/76]. Heart rate is [65]. Respiration is [16] . Temperature is [97.1]. HEENT: Head is atraumatic, neck is supple, there were no carotid bruits. CHEST: Lungs are clear to auscultation and percussion. CARDIAC: S1, S2 normal rate and rhythm. There is no murmur. ABDOMEN: Soft and nontender. Bowel sounds are present. EXTREMITIES: There is no pedal edema. Peripheral pulses are present. Neurological examination: Patient's neurological examination is unchanged from yesterday. Patient does not notice much improvement with the use of his right arm today in terms of muscle strength. Patient notices slight improvement with the use of his right fingers in the hand awning maker. - Labs CBC & Chem 7: 04/23/16 07:22 04/23/16 07:22 Labs: Abnormal Lab Results - Last 24 Hours (Table) 04/24/16 04/24/16 04/24/16 Range/Units 14:59 16:47 21:02 POC Glucose (mg/dL) 146 H 127 H 120 H (75-99) mg/dL 04/25/16 Range/Units 06:54 POC Glucose (mg/dL) 126 H (75-99) mg/dL Assessment and Plan (1) Injury of right brachial plexus Status: Acute Code(s): S14.3XXA - INJURY OF BRACHIAL PLEXUS, INITIAL ENCOUNTER (2) Right clavicle fracture Status: Acute Code(s): S42.001A - FRACTURE OF UNSP PART OF RIGHT CLAVICLE, INIT FOR CLOS FX (3) Cervical spondylosis with radiculopathy Status: Acute Code(s): M47.22 - OTHER SPONDYLOSIS WITH RADICULOPATHY, CERVICAL REGION (4) Multiple fractures of ribs of right side Status: Acute Code(s): S22.41XA - MULTIPLE FRACTURES OF RIBS, RIGHT SIDE, INIT FOR CLOS FX Plan: This patient is 65-year-old male who was evaluated for acute right arm weakness. Patient underwent anterior cervical discectomy with fusion today with Dr. Monroy. He is undergone a successful surgery and seems to be recovering very well. His MRI of the brachial plexus yesterday failed to reveal any acute abnormalities to explain his right arm weakness. It was decided to move forward with an anterior cervical discectomy with fusion procedure for this patient this morning. The patient is in a soft collar at this time. He is not in any acute pain. He may require some outpatient physical therapy upon discharge. He seems to be making very good progress today and we will continue to monitor his condition closely during this admission. The patient was seen today by Dr. Monroy. He is status post anterior cervical discectomy with fusion at 2 cervical levels. He continues to do well and is using a cervical soft collar. He was seen today by Dr. Monroy and has been cleared for discharge home. He will be sent home on prednisone and Ultram. Patient may follow-up in the outpatient neurology clinic as needed. He continues to show improvement with this right arm strength. He may be considered for outpatient physical therapy as well. His overall prognosis at this time remains guarded.
== END 2016-04-25 12:05 | disposition home or self-care (01) | DRG 982 ==
LOC: EC 09:26 → 3SUR 12:49
PROVIDERS: ADMIT Family Medicine; ATTEND Family Medicine
PROC: 0RB30ZZ Excision of Cervical Vertebral Disc, Open Approach (ICD-10-PCS; 2016-04-24)
PROC: 0RG2070 Fusion of 2 or more Cervical Vertebral Joints with Autologous Tissue Substitute, Anterior Approach, Anterior Column, Open Approach (ICD-10-PCS; principal; 2016-04-24 12:05)
DX: K56.69 Other intestinal obstruction (principal); E87.1 Hypo-osmolality and hyponatremia; S22.41XA Multiple fractures of ribs, right side, initial encounter for closed fracture; J98.11 Atelectasis; I11.9 Hypertensive heart disease without heart failure; M48.02 Spinal stenosis, cervical region; S14.3XXA Injury of brachial plexus, initial encounter; D32.9 Benign neoplasm of meninges, unspecified; K66.0 Peritoneal adhesions (postprocedural) (postinfection); H91.90 Unspecified hearing loss, unspecified ear; M47.22 Other spondylosis with radiculopathy, cervical region; M50.123 Cervical disc disorder at C6-C7 level with radiculopathy; S42.001A Fracture of unspecified part of right clavicle, initial encounter for closed fracture; R06.6 Hiccough; R07.89 Other chest pain; M19.90 Unspecified osteoarthritis, unspecified site; T40.605A Adverse effect of unspecified narcotics, initial encounter; Z85.038 Personal history of other malignant neoplasm of large intestine; Z87.891 Personal history of nicotine dependence; Z79.899 Other long term (current) drug therapy; Z82.49 Family history of ischemic heart disease and other diseases of the circulatory system; W00.0XXA Fall on same level due to ice and snow, initial encounter; Y92.009 Unspecified place in unspecified non-institutional (private) residence as the place of occurrence of the external cause
CPT/HCPCS: 36415; 71020; 71552; 72020; 72141; 74000; 74022; 74177; 80053; 82150; 83690; 83735; 85025; 85610; 93005; 96372; 96374; 96375; 99284; 99285

== ENCOUNTER → 2017-05-01 | Outpatient (CLI) | payer BC, MEDICARE ==
[2017-05-01 10:01] LABS: ALT 15 U/L (21-72); AST 19 U/L (17-59); Albumin 3.9 g/dL (3.5-5.0); Alkaline Phosphatase 72 U/L (38-126); Anion Gap 10 mmol/L; Blood Urea Nitrogen 17 mg/dL (9-20); Calcium 9.1 mg/dL (8.4-10.2); Carbon Dioxide 26 mmol/L (22-30); Chloride 106 mmol/L (98-107); Cholesterol 182 mg/dL (<200); Glucose 95 mg/dL (74-99); HDL Cholesterol 80 mg/dL (40-60); LDL Cholesterol,Calculated 95 mg/dL (0-99); Potassium 4.4 mmol/L (3.5-5.1); Sodium 142 mmol/L (137-145); Total Bilirubin 0.4 mg/dL (0.2-1.3); Total Protein 6.9 g/dL (6.3-8.2); Triglycerides 35 mg/dL (<150)
[2017-05-01 10:18] LABS: T4, Free (Free Thyroxine) 1.02 ng/dL (0.78-2.19)
[2017-05-01 10:31] LABS: Prostate Specific Antigen 0.65 ng/mL (0.00-4.00)
[2017-05-01 11:24] LABS: Basophils # (A) 0.1 k/uL (0-0.2); Basophils % (A) 1 %; Eosinophils # (A) 0.6 k/uL (0-0.7); Eosinophils % (A) 8 %; HCT 46.7 % (39.0-53.0); HGB 14.7 gm/dL (13.0-17.5); Lymphocytes # (A) 2.1 k/uL (1.0-4.8); Lymphocytes % (A) 28 %; MCH 29.3 pg (25.0-35.0); MCHC 31.4 g/dL (31.0-37.0); MCV 93.3 fL (80.0-100.0); Mean Platelet Volume 7.7; Monocytes # (A) 0.5 k/uL (0-1.0); Monocytes % (A) 7 %; Neutrophils # (A) 4.1 k/uL (1.3-7.7); Neutrophils % (A) 54 %; Platelet Count 308 k/uL (150-450); RBC 5.01 m/uL (4.30-5.90); WBC 7.5 k/uL (3.8-10.6)
[2017-05-01 15:35] LABS: Hemoglobin A1C 5.7 % (4.0-6.0)
== END | disposition home or self-care (01) ==
LOC: LABWHC1 06:37
PROVIDERS: ATTEND Internal Medicine Geriatric Medicine
DX: Z00.00 Encounter for general adult medical examination without abnormal findings (principal); N40.0 Benign prostatic hyperplasia without lower urinary tract symptoms; E78.2 Mixed hyperlipidemia; R79.9 Abnormal finding of blood chemistry, unspecified; I10 Essential (primary) hypertension
CPT/HCPCS: 36415; 80053; 80061; 83036; 84153; 84439; 84443; 85025

== ENCOUNTER → 2019-12-23 | Outpatient (CLI) | payer MEDICARE ==
[2019-12-23 08:39] LABS: Basophils # (A) 0.1 k/uL (0-0.2); Basophils % (A) 1 %; Eosinophils # (A) 0.6 k/uL (0-0.7); Eosinophils % (A) 9 %; HCT 48.4 % (39.0-53.0); HGB 15.6 gm/dL (13.0-17.5); Lymphocytes # (A) 1.5 k/uL (1.0-4.8); Lymphocytes % (A) 22 %; MCH 30.7 pg (25.0-35.0); MCHC 32.1 g/dL (31.0-37.0); MCV 95.5 fL (80.0-100.0); Mean Platelet Volume 6.7; Monocytes # (A) 0.4 k/uL (0-1.0); Monocytes % (A) 6 %; Neutrophils # (A) 4.2 k/uL (1.3-7.7); Neutrophils % (A) 60 %; Platelet Count 276 k/uL (150-450); RBC 5.07 m/uL (4.30-5.90); RDW 13.3 % (11.5-15.5)
[2019-12-23 19:40] LABS: ALT 15 U/L (10-49); AST 20 U/L (14-35); African American GFR (CKD) 99.9 (60.0-200.0); Albumin/Globulin Ratio 1.68 (1.60-3.17); Alkaline Phosphatase 60 U/L (41-126); BUN/Creat Ratio 22.22 Ratio (12.00-20.00); Calcium 8.9 mg/dL (8.7-10.3); Carbon Dioxide 22.5 mmol/L (21.6-31.8); Chloride 108 mmol/L (96-109); Chol/HDL Ratio 2.74; Cholesterol 189 mg/dL (0-200); Globulin 2.5 g/dL (1.6-3.3); Glucose 95 mg/dL (70-110); Non-African American GFR(CKD) 86.2 (60.0-200.0); Potassium 4.3 mmol/L (3.5-5.5); Prostate Specific Antigen 0.6 ng/mL (0.0-6.5); Sodium 141 mmol/L (135-145); Total Bilirubin 0.7 mg/dL (0.2-1.2); Total Protein 6.7 g/dL (6.2-8.2); Triglycerides <50.0 mg/dL (0.0-149.0)
== END | disposition home or self-care (01) ==
LOC: LABWHC1 07:28
PROVIDERS: ATTEND Internal Medicine Geriatric Medicine
DX: Z00.00 Encounter for general adult medical examination without abnormal findings (principal); R79.9 Abnormal finding of blood chemistry, unspecified; E78.2 Mixed hyperlipidemia; N40.0 Benign prostatic hyperplasia without lower urinary tract symptoms
CPT/HCPCS: 36415; 80053; 80061; 83036; 84153; 84443; 85025

== ENCOUNTER 2022-11-15 00:41 | Emergency (ER) | payer MEDICARE ==
[2022-11-15 00:53] VITALS: RESP 18; TEMP 98.2
[2022-11-15] MEDS ORDERED: Acetaminophen-Codeine 300-30mg TAB PO STA (01:40)
[2022-11-15] MEDS ORDERED: HYDROCORTISONE SUPPOSITORY 25 MG SUPP RECTAL STA (01:40)
[2022-11-15] MEDS ORDERED: polyethylene glycoL 3350 17 GM POWD.PACK PO STA (01:40)
--- NOTE | 2022-11-15 01:41 | ED ---
Recheck HPI - General Chief Complaint: Urogenital Stated Complaint: Pain Time Seen by Provider: 11/15/22 00:42 Source: patient, RN notes reviewed, old records reviewed Mode of arrival: ambulatory Limitations: no limitations - History of Present Illness Initial Comments: This is a 72-year-old male to the emergency department today for evaluation. Patient presents as a recheck today. Patient concern for severe hemorrhoid pain with history of hemorrhoids. He is having bowel movements and urinating without difficulty at home no abdominal pain. Pain is at his blood tox he does have follow-up as an outpatient with general surgery but states he does not reveal to make it Thursday he isn't came to the ER for relief for supportive care. No other complaints no fevers cough congestion nausea vomiting or diarrhea no travel show sick contacts no blood in the stool MD Complaint: other (Hemorrhoid pain, rectal pain) -: days(s) Returns Today for: persistent/worsening pain related to initial visit Symptoms Since Prior Visit: worsening pain Treatments Prior to Arrival: Given Pain Meds on - Related Data Home Medications Medication Instructions Recorded Confirmed Loratadine [Claritin] 10 mg PO QAM 04/15/16 04/19/16 lisinopriL 30 mg PO QAM 04/15/16 04/19/16 Hydrocodone/Acetaminophen [Rollins 1 - 2 tab PO Q6HR PRN 04/19/16 04/19/16 5-325] Previous Rx's Medication Instructions Recorded Sennosides-Docusate Sodium 2 tab PO DAILY #60 tablet 04/16/16 [Senokot-S] Famotidine [Pepcid] 20 mg PO BID #60 tab 04/25/16 diazePAM [Valium] 5 mg PO QID PRN #30 tab 04/25/16 predniSONE [Deltasone] 20 mg PO DIRECTED #24 tab 04/25/16 traMADol HCL [Ultram] 50 mg PO Q6HR PRN #90 tab 04/25/16 Allergies Allergy/AdvReac Type Severity Reaction Status Date / Time No Known Allergies Allergy Verified 11/15/22 00:50 Review of Systems ROS Statement: Those systems with pertinent positive or pertinent negative responses have been documented in the HPI. ROS Other: All systems not noted in ROS Statement are negative. Past Medical History Past Medical History: Cancer, Hearing Disorder / Deafness, Hypertension, Osteoarthritis (OA) Additional Past Medical History / Comment(s): Fall with right clavicular and right-sided fractures, colon cancer in 1997 with a previous colectomy, hypertension, hypertensive heart disease with concentric left ventricular hypertrophy, osteoarthritis, ALLERGIC rhinitis, impaired hearing, questionable meningioma History of Any Multi-Drug Resistant Organisms: None Reported Past Surgical History: Appendectomy Additional Past Surgical History / Comment(s): colon removed secondary to ca, only has semicolon, right cataract surgery, Past Anesthesia/Blood Transfusion Reactions: No Reported Reaction Past Psychological History: No Psychological Hx Reported Smoking Status: Never smoker Past Alcohol Use History: Occasional Past Drug Use History: None Reported - Past Family History Mother Family Medical History: Cancer (Mother at age of 90 from breast cancer, congestive heart failure, and renal cancer.) Father Family Medical History: CVA/TIA (Father at age of 81 from stroke.) Brother(s) Family Medical History: Cancer (Patient had 4 brothers 3 are alive and okay and one from pancreatic cancer per) Sister(s) Family Medical History: No Reported History (Patient had 2 sisters one is alive and okay the other one from neurofibroma and she ended up with MRSA through a pressure ulcer.) Son(s) Family Medical History: No Reported History (Patient has one son no major medical problems for) General Exam - General Exam Comments Initial Comments: She does have hemorrhoids, none are thrombosed external Limitations: no limitations General appearance: alert, in no apparent distress Head exam: Present: atraumatic, normocephalic, normal inspection Eye exam: Present: normal appearance, PERRL, EOMI. Absent: scleral icterus, conjunctival injection, periorbital swelling ENT exam: Present: normal exam, mucous membranes moist Neck exam: Present: normal inspection. Absent: tenderness, meningismus, lymphadenopathy Respiratory exam: Present: normal lung sounds bilaterally. Absent: respiratory distress, wheezes, rales, rhonchi, stridor Cardiovascular Exam: Present: regular rate, normal rhythm, normal heart sounds. Absent: systolic murmur, diastolic murmur, rubs, gallop, clicks GI/Abdominal exam: Present: soft, normal bowel sounds. Absent: distended, tenderness, guarding, rebound, rigid Rectal exam: Present: hemorrhoids (No thrombosis) Extremities exam: Present: normal inspection, full ROM, normal capillary refill. Absent: tenderness, pedal edema, joint swelling, calf tenderness Back exam: Present: normal inspection Neurological exam: Present: alert, oriented X3, CN II-XII intact Psychiatric exam: Present: normal affect, normal mood Skin exam: Present: warm, dry, intact, normal color. Absent: rash Course Vital Signs 11/15/22 11/15/22 00:50 02:24 Temperature 98.2 F Pulse Rate 87 79 Respiratory 18 18 Rate Blood Pressure 122/76 126/73 O2 Sat by Pulse 98 95 Oximetry - Reevaluation(s) Reevaluation #1: 11/15/22 02:14 Records reviewed Reevaluation #2: 11/15/22 02:14 Patient symptoms improved Reevaluation #3: 11/15/22 02:14 Patient informed of results and questions answered Reevaluation #4: 11/15/22 02:14 Was pt. sent in by a medical professional or institution (, PA, MACHINE REPAIRER MAINTENANCE, urgent care, hospital, or [facility]...) When possible be specific @ -no Did you speak to anyone other than the patient for history (EMS, parent, family, police, friend...)? What history was obtained from this source @ -no Did you review nursing and triage notes (agree or disagree)? Why? @ -agree Are old charts reviewed (outside hosp., previous admission, EMS record, old EKG, old radiological studies, urgent care reports/EKG's, [facility] records)? Report findings @ -yes Differential Diagnosis (chest pain, altered mental status, abdominal pain women, abdominal pain men, vaginal bleeding, weakness, fever, dyspnea, syncope, headache, dizziness, GI bleed, back pain, seizure, CVA, palpatations, mental health, musculoskeletal)? @ -prior EKG interpreted by me (3pts min.). @ -no X-rays interpreted by me (1pt min.). @ -no CT interpreted by me (1pt min.). @ -no U/S interpreted by me (1pt. min.). @ -no What testing was considered but not performed or refused? (CT, X-rays, U/S, labs)? Why? @ -none What meds were considered but not given or refused? Why? @ -none Did you discuss the management of the patient with other professionals (professionals i.e. , PA, MACHINE REPAIRER MAINTENANCE, lab, RT, psych nurse, aids social worker, data officer, teacher, military source operations officer, case advocate)? Give summary @ -no Was smoking cessation discussed for >3mins.? @ -no Was critical care preformed (if so, how long)? @ -no Were there social determinants of health that impacted care today? How? (Homelessness, low income, unemployed, alcoholism, drug addiction, transportation, low edu. Level, literacy, decrease access to med. care, [facility], rehab)? @ -none Was there de-escalation of care discussed even if they declined (Discuss DNR or withdrawal of care, Hospice)? DNR status @ -no What co-morbidities impacted this encounter? (DM, HTN, Smoking, COPD, CAD, Cancer, CVA, ARF, Chemo, Hep., AIDS, mental health diagnosis, sleep apnea, morbid obesity)? @ -none Was patient admitted / discharged? Hospital course, mention meds given and route, prescriptions, significant lab abnormalities, going to OR and other pertinent info. @ - 72 male to the ER for evaluation of possible hemorrhoid recurrence. Patient has no thrombosed hemorrhoids on exam. Pain is improved here in the ER and can be discharged home encouraged liquid the light diet. Follow-up with surgery on Thursday Discharged Undiagnosed new problem with uncertain prognosis? @ -no Drug Therapy requiring intensive monitoring for toxicity (Heparin, Nitro, Insulin, Cardizem)? @ -no Were any procedures done? @ -no Diagnosis/symptom? @ -Recurrent hemorrhoids for severe pain Acute, or Chronic, or Acute on Chronic? @ -Acute Uncomplicated (without systemic symptoms) or Complicated (systemic symptoms)? @ -Complicated Side effects of treatment? @ -no Exacerbation, Progression, or Severe Exacerbation? @ -exacerbation Poses a threat to life or bodily function? How? (Chest pain, [place], MA, pneumonia, PE, COPD, DKA, ARF, appy, cholecystitis, CVA, Diverticulitis, Homicidal, Suic idal, threat to staff... and all critical care pts) @ -no Medical Decision Making - Medical Decision Making 72 male to the ER for evaluation of possible hemorrhoid recurrence. Patient has no thrombosed hemorrhoids on exam. Pain is improved here in the ER and can be discharged home encouraged liquid the light diet. Follow-up with surgery on Thursday Disposition Clinical Impression: Hemorrhoids Disposition: HOME SELF-CARE Condition: Good Instructions (If sedation given, give patient instructions): Hemorrhoids (ED) Is patient prescribed a controlled substance at d/c from ED?: No Referrals: Mynor Martell MD [Primary Care Provider] - 1-2 days Landy Shelton DO [REFERRING] - 1-2 days Time of Disposition: 02:15
[2022-11-15] MEDS ORDERED: ONDANSETRON 4 MG ODT STARTER PACK 2 TAB BTL PO STA (02:11)
[2022-11-15] MEDS ORDERED: ACET/COD 300 MG/30 MG STARTER PACK 6 TAB BTL PO STA (02:11)
[2022-11-15 02:25] VITALS: BP 126/73; PULSE 79
== END 2022-11-15 02:25 | disposition home or self-care (01) ==
LOC: EC 00:41
DX: K64.9 Unspecified hemorrhoids (principal); I10 Essential (primary) hypertension; M19.90 Unspecified osteoarthritis, unspecified site; Z79.1 Long term (current) use of non-steroidal anti-inflammatories (NSAID); Z79.899 Other long term (current) drug therapy; Z90.49 Acquired absence of other specified parts of digestive tract
CPT/HCPCS: 99284; S0119

== ENCOUNTER → 2024-05-06 | Day surgery (SDC) | payer MEDICARE ==
[2024-05-05 12:05] VITALS: BMI 26.0
[~2024-05-06] MED LIST: PROPOFOL 10 MG/ML 20 ML VIAL IV ONE
[2024-05-06] MEDS: LACTATED RINGERS 1,000 ML IV ONE (10:53)
[2024-05-06 11:09] VITALS: RESP 16; TEMP 97.4
[2024-05-06] MEDS: LACTATED RINGERS 1,000 ML IV SCH (11:19)
--- NOTE | 2024-05-06 12:41 | P.PCN ---
Date of Procedure: 05/06/24 Procedure(s) Performed: BRIEF HISTORY: Patient is a 74-year-old pleasant white male scheduled for an elective colonoscopy as a part of screening for colon cancer/positive Cologuard. Prior history of right colon resection. PROCEDURE PERFORMED: Colonoscopy with biopsy. PREOPERATIVE DIAGNOSIS: Screening for colon cancer/positive Cologuard. IV sedation per Anesthesia. PROCEDURE: After informed consent was obtained, the patient, was brought into the endoscopy unit. IV sedation was administered by Anesthesia under continuous monitoring. Digital rectal examination was normal. Initially the Olympus CF-160 flexible video colonoscope was then inserted in the rectum, gradually advanced into the right colon without any difficulty. Careful examination was performed as the scope was gradually being withdrawn. The ileocolic anastomosis was visualized and appeared normal. Mucosa of the ascending colon appeared normal. The transverse colon there was a 3 mm polyp that was removed by cold biopsy. Rest of the transverse colon, descending colon, sigmoid colon, and rectum appeared normal. Moderate sigmoid diverticulosis. Retroflexion was performed in the rectum and grade 2 internal were seen. The patient tolerated the procedure well. IMPRESSION: 3 mm transverse colon polyp status post cold biopsy Moderate sigmoid diverticulosis Grade 2 internal hemorrhoids. RECOMMENDATIONS: Findings of this examination were discussed with the patient as well as his family. He was advised to follow-up with the biopsy results. Recommended repeat colonoscopy at age 79..
[2024-05-06 13:04] VITALS: BP 133/78; PULSE 70
== END ==
LOC: ORWHC2ENDO 10:26
PROVIDERS: ATTEND Internal Medicine Gastroenterology
DX: Z12.11 Encounter for screening for malignant neoplasm of colon (principal); K63.5 Polyp of colon; K64.1 Second degree hemorrhoids; K57.30 Diverticulosis of large intestine without perforation or abscess without bleeding
CPT/HCPCS: 45380; J2704; 88305